=== PATIENT | female | born 1965 | race Caucasian/White ===

== ENCOUNTER 2017-02-14 16:25 | Emergency (ER) | payer MEDICARE, OTHER ==
[~2017-02-14] VITALS: Ht 160 cm; Wt 73.9 kg
[~2017-02-14 16:25] MED LIST: /DIVA50TA PO; AMBI12.52 PO; CEPACOL PO; CHOLPOW XX; DEPA500T2 PO; DOXY-197 PO; ESTR62CR PV; FLUC150T PO; HYOSPOW SL; NICO21PAT TOP; OMEP40CA2 PO; OXYC5TAB2 PO; PRED10TA2 PO; PROC2.5C PR; SERO50TA PO; TYLE650T30 PO; VAGI10TA VA; XANA0.5T PO; XANA1TAB2 PO; XOPEAER IN; ZITH250T PO; ZOLP-189 PO; ZYPR5TAB2 PO; ambien PO
[2017-02-14] MEDS ORDERED: XANA1TAB2 PO (16:36)
[2017-02-14] MEDS ORDERED: BENT10CA PO (16:36)
[2017-02-14] MEDS ORDERED: LOPE2TAB5 PO (16:36)
[2017-02-14] MEDS ORDERED: LATU1TAB PO (16:36)
[2017-02-14] MEDS ORDERED: ONDANSETRON 4 MG ORAL DISINTEGRATING TAB (S0181) PO ONE (17:00)
[2017-02-14] MEDS ORDERED: ACETAMINOPHEN 325 MG TAB PO ONE (17:00)
[2017-02-14] MEDS ORDERED: ZOFR4TAB3 PO (18:04)
[2017-02-14] MEDS ORDERED: IBUP600T26 PO (18:04)
[2017-02-14 18:12] VITALS: BP 112/76
== END 2017-02-14 18:17 | disposition home or self-care (01) ==
LOC: M ED 17:56
DX: S09.90XA Unspecified injury of head, initial encounter (principal); W01.190A Fall on same level from slipping, tripping and stumbling with subsequent striking against furniture, initial encounter; Y92.018 Other place in single-family (private) house as the place of occurrence of the external cause; Y93.89 Activity, other specified; Y99.8 Other external cause status; Z79.899 Other long term (current) drug therapy; Z88.8 Allergy status to other drugs, medicaments and biological substances; F17.210 Nicotine dependence, cigarettes, uncomplicated

== ENCOUNTER 2017-12-10 09:38 | Emergency (ER) | payer OTHER, MEDICARE ==
[2017-12-10] MEDS: PERCOCET 5MG/325MG TAB PO (10:18)
[2017-12-10] MEDS: CYCLOBENZAPRINE 5MG TABLET PO (10:20)
== END 2017-12-10 11:57 | disposition home or self-care (01) ==
LOC: M ED 09:38
DX: Z04.1 Encounter for examination and observation following transport accident (principal); S13.4XXA Sprain of ligaments of cervical spine, initial encounter; S43.402A Unspecified sprain of left shoulder joint, initial encounter; V43.52XA Car driver injured in collision with other type car in traffic accident, initial encounter; Y92.410 Unspecified street and highway as the place of occurrence of the external cause; M75.32 Calcific tendinitis of left shoulder; M50.221 Other cervical disc displacement at C4-C5 level; M25.78 Osteophyte, vertebrae; J44.9 Chronic obstructive pulmonary disease, unspecified; K21.9 Gastro-esophageal reflux disease without esophagitis; F43.10 Post-traumatic stress disorder, unspecified; F31.9 Bipolar disorder, unspecified; F41.9 Anxiety disorder, unspecified; F17.210 Nicotine dependence, cigarettes, uncomplicated; Z79.51 Long term (current) use of inhaled steroids; Z79.899 Other long term (current) drug therapy; Z91.040 Latex allergy status; Z88.8 Allergy status to other drugs, medicaments and biological substances; Z87.820 Personal history of traumatic brain injury; Z86.011 Personal history of benign neoplasm of the brain; Z98.890 Other specified postprocedural states
CPT/HCPCS: 73030

== ENCOUNTER → 2019-03-10 | Outpatient (CLI) | payer MEDICARE ==
[~2019-03-10] MED LIST changes: -/DIVA50TA PO; +ANOR1AER IN; +ARNU1INH3 IN; +BENT10CA PO; +CHOL4PW PO; +CYCL10TA PO; +DEPA1TAB3 PO; +IBUP-1022 PO; +LATU1TAB PO; +LOPE2TAB5 PO; +NAPR-885 PO; +NICO21DI3 TOP; -NICO21PAT TOP; +ZOFR4TAB14 PO
--- NOTE | 2019-03-10 15:54 | REP ---
Chest two views HISTORY: Cough Comparison: 11/12/2017 Linear density is present in the right lower lobe consistent with atelectasis or scar. The left lung is clear. The heart is normal in size. The pulmonary vasculature is normal in appearance. The bony structure is intact. IMPRESSION: Right lower lobe atelectasis or scar. Electronically Signed by William Oleary MD 03/10/2019 03:45 P
== END ==
LOC: M SMT 14:53
PROVIDERS: ATTEND Internal Medicine Pulmonary Disease
DX: R91.8 Other nonspecific abnormal finding of lung field (principal)

== ENCOUNTER → 2020-03-01 | Outpatient (CLI) | payer MEDICARE ==
[~2020-03-01] MED LIST changes: +CYCL-707 PO; -CYCL10TA PO; +OMEP40CA97 PO
[2020-03-01 09:47] LABS: ABG BASE EXCESS -2.8 (-2.0-2.0); ABG HCO3 21.3 MEQ/L (22.0-26.0); ABG O2 SATURATION 95.1 % (95.0-99.0); ABG PARTIAL PRESSURE CO2 34.7 mmHg (35.0-45.0); ABG PARTIAL PRESSURE O2 78.1 mmHg (75.0-100.0); ABG STANDARD HCO3 22.1 MEQ/L (22.0-26.0); ABG TOTAL CO2 22.3 MEQ/L (22.0-29.0); ABG pH (ARTERIAL) 7.405 UNITS (7.350-7.450)
--- NOTE | 2020-03-01 10:17 | PFTRPT ---
Site: [facility], [address] [place] [address], [id number] ID: [id number] Name: RU DIAZ CASE Visit Date: 03/01/2020 Second ID: [id number] Referring Doctor: Sinai GALVAN, Pascual Garcia Reviewing Doctor: Demetrius Pereira MD Grain Roaster: Vy VALENZUELA, RONNA Age: 54 : 1965 Sex: Female Race: Height: 63.75 Inches Weight: 185.00 Lbs BSA: 1.89 Order IDs: [id number] Requested Test(s): <RESP-PFT.DLCO> Diagnosis: J44.9 test appear to be valid, although the ATS standard for "end of test" was not met. Pt was given four puffs of albuterol for postbronchodilator. IVC is less than 85% of VC. DLCO may be underestimated. Review Status: Not Reviewed Pre-Bronch Post-Bronch Pred Actual %Pred Actual %Chng SPIROMETRY FVC (L) 3.43 2.65 77 3.02 14 FEV1 (L) 2.69 1.54 57 1.75 13 FEV1/FVC (%) 79 58 73 58 FEF 25% (L/sec) 5.10 2.00 39 3.09 54 FEF 50% (L/sec) 3.81 0.76 19 1.20 58 FEF 75% (L/sec) 1.35 0.22 15 0.53 144 FEF 25-75% (L/sec) 2.59 0.57 22 1.06 85 FEF Max (L/sec) 6.55 3.99 60 4.74 18 FIVC (L) 2.66 3.07 15 FIF 50% (L/sec) 3.73 4.64 124 5.67 22 FIF Max (L/sec) 4.71 5.75 22 MVV (L/min) 95 58 60 Expiratory Time (sec) 10.57 7.45 -29 Back Extrap Vol (L) 0.06 0.08 39 Time To FEFmax (sec) 0.077 0.085 10 LUNG VOLUMES SVC (L) 3.17 3.76 118 IC (L) 2.21 1.88 85 ERV (L) 0.96 1.88 195 TGV (L) 2.81 3.98 141 RV (Pleth) (L) 1.85 2.10 113 TLC (Pleth) (L) 5.02 5.87 116 RV/TLC (Pleth) (%) 37 36 96 DIFFUSION DLCOunc (ml/min/mmHg) 22.21 16.01 72 DLCOcor (ml/min/mmHg) 22.21 16.55 74 DL/VA (ml/min/mmHg/L) 4.42 3.27 74 VA (L) 5.02 5.05 100 BHT (sec) 9.71 IVC (L) 2.80 TLC (SB) (L) 5.20 AIRWAYS RESISTANCE Raw (cmH2O/L/s) 1.86 1.82 97 Gaw (L/s/cmH2O) 1.03 0.55 53 sRaw (cmH2O*s) 4.76 9.63 202 sGaw (1/cmH2O*s) 0.20 0.11 52 BLOOD GASES Hgb (gm/dL) 12.4
== END ==
LOC: M CARPUL 09:15
PROVIDERS: ATTEND Internal Medicine Pulmonary Disease
DX: J44.9 Chronic obstructive pulmonary disease, unspecified (principal)

== ENCOUNTER → 2020-08-14 | Outpatient (REF) | payer MEDICARE | LOC: M LAB REF 17:06 | PROVIDERS: ATTEND Internal Medicine Pulmonary Disease | DX: Z79.899 Other long term (current) drug therapy (principal) ==

== ENCOUNTER → 2020-08-29 | Outpatient (REF) | payer MEDICARE | LOC: M LAB REF 17:20 | PROVIDERS: ATTEND Internal Medicine Pulmonary Disease | DX: J45.40 Moderate persistent asthma, uncomplicated (principal) ==

== ENCOUNTER → 2020-10-02 | Outpatient (REF) | payer MEDICARE | LOC: M LAB REF 16:58 | PROVIDERS: ATTEND Internal Medicine Pulmonary Disease | DX: J45.40 Moderate persistent asthma, uncomplicated (principal) ==

== ENCOUNTER → 2020-10-25 | Outpatient (REF) | payer MEDICARE | LOC: M LAB REF 16:52 | PROVIDERS: ATTEND Internal Medicine Pulmonary Disease | DX: J45.40 Moderate persistent asthma, uncomplicated (principal) ==

== ENCOUNTER → 2020-11-21 | Outpatient (REF) | payer MEDICARE ==
[2020-11-21 13:31] LABS: APPEARANCE, URINE CLEAR (CLEAR); BACTERIA, URINE AUTO NEGATIVE (NEGATIVE); BILIRUBIN, URINE AUTO NEGATIVE (NEGATIVE); BLOOD, URINE BLOOD 1+ (NEGATIVE); COLOR, URINE YELLOW (YELLOW); GLUCOSE, URINE (UA) AUTO NEGATIVE (NEGATIVE); KETONE, URINE AUTO NEGATIVE (NEGATIVE); LEUKOCYTE ESTERASE, URINE AUTO NEGATIVE (NEGATIVE); NITRITE, URINE AUTO NEGATIVE (NEGATIVE); PROTEIN, URINE AUTO NEGATIVE (NEGATIVE); RBC, URINE AUTO 1 /HPF (0-3); SPECIFIC GRAVITY URINE AUTO 1.012 (1.002-1.035); SQUAMOUS EPITHELIAL CELL UR AU 0 /HPF (0-6); UROBILINOGEN, URINE AUTO 0.2 mg/dL (0.0-2.0); WBC, URINE AUTO 0 /HPF (0-3)
== END ==
LOC: M SMT 13:02
PROVIDERS: ATTEND Urology
DX: N32.0 Bladder-neck obstruction (principal)

== ENCOUNTER 2021-01-26 22:13 | Emergency (ER) | payer MEDICARE ==
[~2021-01-26] VITALS: Ht 162.6 cm; Wt 72.7 kg
[2021-01-26] MEDS ORDERED: CBD OIL (22:38)
[2021-01-26] MEDS ORDERED: CLOP75TA2 (22:38)
[2021-01-26] MEDS ORDERED: DOXA1TAB41 (22:38)
[2021-01-26] MEDS ORDERED: VENTAER INH (22:38)
[2021-01-26] MEDS ORDERED: AMIT75TA (22:38)
[2021-01-26] MEDS ORDERED: ACET650T61 PO (22:38)
[2021-01-26] MEDS ORDERED: VITA50005 (22:38)
[2021-01-26] MEDS ORDERED: LISI20TA33 (22:38)
[2021-01-26] MEDS ORDERED: THEO400T4 (22:38)
[2021-01-26] MEDS ORDERED: UBRO100T (22:38)
[2021-01-26] MEDS ORDERED: NITROGLYCERIN 0.4 MG SUBL TABLET SL PRN (23:00)
[2021-01-26 23:06] LABS: BASO # 0.1 10^3/uL (0.0-0.2); BASO % 1.1 % (0.0-1.0); EOS # 0.2 10^3/uL (0.0-0.5); EOS % 1.8 % (0.0-3.0); HEMATOCRIT 33.3 % (36.0-47.0); HEMOGLOBIN 10.8 g/dl (12.0-15.5); LYMPH # 3.8 10^3/uL (1.5-5.0); LYMPH % 39.9 % (24.0-44.0); MEAN CORPUSCULAR HEMOGLOBIN 33.5 pg (27.0-33.0); MEAN CORPUSCULAR HGB CONC 32.4 g/dl (32.0-36.5); MEAN CORPUSCULAR VOLUME 103.4 fl (80.0-96.0); MONO # 0.8 10^3/uL (0.0-0.8); MONO % 8.4 % (2.0-8.0); NEUTROPHILS # 4.7 10^3/uL (1.5-8.5); NEUTROPHILS % 48.5 % (36.0-66.0); PLATELET COUNT, AUTOMATED 315 10^3/uL (150-450); RED BLOOD COUNT 3.22 10^6/uL (4.00-5.40); WHITE BLOOD COUNT 9.6 10^3/uL (4.0-10.0)
[2021-01-26 23:15] LABS: INR 0.92; PROTHROMBIN TIME 12.5 SECONDS (12.5-14.3)
[2021-01-26 23:25] LABS: ALBUMIN 3.4 GM/DL (3.2-5.2); ALT/SGPT 19 U/L (12-78); BILIRUBIN,DIRECT < 0.1 MG/DL (0.0-0.2); BLOOD UREA NITROGEN 14 MG/DL (7-18); CALCIUM LEVEL 8.8 MG/DL (8.5-10.1); CARBON DIOXIDE LEVEL 24 MEQ/L (21-32); CHLORIDE LEVEL 110 MEQ/L (98-107); CK-MB VALUE MASS < 1.0 NG/ML (<3.6); CPK CREATINE PHOSPHOKINASE 54 U/L (26-192); CREATININE FOR GFR 0.72 MG/DL (0.55-1.30); GLOMERULAR FILTRATION RATE > 60.0 (>51); GLUCOSE, FASTING 88 MG/DL (70-100); LIPASE 151 U/L (73-393); MB/CK RELATIVE INDEX 1.85 (< OR =4); NT-PRO BNP 9 PG/ML (<125); POTASSIUM SERUM 3.9 MEQ/L (3.5-5.1); SODIUM LEVEL 141 MEQ/L (136-145); TOTAL PROTEIN 6.5 GM/DL (6.4-8.2); TROPONIN I < 0.02 NG/ML (< 0.10)
--- NOTE | 2021-01-26 23:33 | REPVR ---
PROCEDURE INFORMATION: Exam: XR Chest Exam date and time: 01/26/21 (11:12pm) Age: 55 years old Clinical indication: Chest pain TECHNIQUE: Imaging protocol: Portable CXR Views: 1 view COMPARISON: Chest films of 03/10/19 FINDINGS: Lungs: Unremarkable. No consolidation. Pleural spaces: Unremarkable. No pleural effusions. No pneumothorax. Heart/Mediastinum: Unremarkable. No cardiomegaly. Bones/joints: Unremarkable. IMPRESSION: No acute findings. Electronically signed by: Summer Benavidez On 01/26/2021 23:33:39 PM
[2021-01-26] MEDS: ASPIRIN 81 MG CHEW TABLET PO ONE ×2 (23:37→23:41)
[2021-01-26 23:51] LABS: BILIRUBIN,TOTAL < 0.1 MG/DL (0.2-1.0)
[2021-01-27] MEDS ORDERED: METAL LOCK LOOP XX ONE (04:41)
[2021-01-27 04:50] LABS: CK-MB VALUE MASS < 1.0 NG/ML (<3.6); CPK CREATINE PHOSPHOKINASE 49 U/L (26-192); MB/CK RELATIVE INDEX 2.04 (< OR =4); TROPONIN I < 0.02 NG/ML (< 0.10)
--- NOTE | 2021-01-27 05:52 | ECGEPIP ---
[facility] - ED Test Date: 2021-01-26 Pat Name: RU DIAZ Department: Room: - Gender: Female Court Supervisor: ENMA : 1965 Requested By: YONIS Martinez Order Number: [id number] Reading MD: Babatunde Thompson Measurements Intervals [place] Rate: 105 P: 58 ND: 160 QRS: 64 QRSD: 82 T: 57 QT: 336 QTc: 444 Interpretive Statements Sinus tachycardia LOW VOLTAGE THROUGHOUT NO PRIORS FOR COMPARISON Electronically Signed on 01-27-2021 5:52:15 EST by Babatunde Thompson
[2021-01-27 06:00] VITALS: BP 133/88
--- NOTE | 2021-01-27 12:56 | ECGEPIP ---
[facility] - ED Test Date: 2021-01-27 Pat Name: RU DIAZ Department: Room: - Gender: Female Medium Cycle Salesperson: ELIZABETH KOENIGB: 1965 Requested By: RICHARD LE Order Number: [id number] Reading MD: Babatunde Thompson Measurements Intervals [place] Rate: 97 P: 39 WA: 146 QRS: 53 QRSD: 82 T: 49 QT: 344 QTc: 436 Interpretive Statements Normal sinus rhythm SIMILAR TO 01/26/21 Electronically Signed on 01-27-2021 12:56:40 EST by Babatunde Thompson
== END 2021-01-27 06:12 | disposition home or self-care (01) ==
LOC: M ED 22:13
DX: R07.9 Chest pain, unspecified (principal); I10 Essential (primary) hypertension; J44.9 Chronic obstructive pulmonary disease, unspecified; H35.30 Unspecified macular degeneration; K21.9 Gastro-esophageal reflux disease without esophagitis; F32.9 Major depressive disorder, single episode, unspecified; Z88.8 Allergy status to other drugs, medicaments and biological substances; Z91.040 Latex allergy status; Z79.899 Other long term (current) drug therapy; Z79.51 Long term (current) use of inhaled steroids; Z79.02 Long term (current) use of antithrombotics/antiplatelets

== ENCOUNTER → 2021-02-02 | Outpatient (CLI) | payer MEDICARE ==
[~2021-02-02] MED LIST changes: +ACET650T61 PO; +AMIT75TA; +CBD OIL; +CLOP75TA2; +DOXA1TAB41; +LISI20TA33; +THEO400T4; +UBRO100T; +VENTAER INH; +VITA50005
== END ==
LOC: M PLALAB 13:02
PROVIDERS: ATTEND Surgery
DX: Z13.79 Encounter for other screening for genetic and chromosomal anomalies (principal)

== ENCOUNTER → 2021-02-14 | Outpatient (CLI) | payer MEDICARE ==
[2021-02-14 09:02] VITALS: BP 122/82
--- NOTE | 2021-02-14 11:12 | REP ---
INDICATION: US GUIDED ASPIR/R92.8 ABN LEFT MAMMO. COMPARISON: Ultrasound 12/28/2020 at [facility] imaging. TECHNIQUE: Real-time sonographic evaluation of left breast performed, ultrasound guidance provided for Dr. Morton. FINDINGS: Ultrasound-guided biopsy performed by Dr. Morton. Ultrasound images in the region of 7 o'clock left breast appear to demonstrate the previously identified hypoechoic nodule identified at that location. IMPRESSION: Ultrasound guidance provided for Dr. Morton for ultrasound-guided biopsy of a left breast nodule at the 7 o'clock position. RECOMMENDATION: Clinical follow-up. <Electronically signed by Esequiel Hopson > 02/14/21 1101
--- NOTE | 2021-02-14 17:25 | REP ---
INDICATION: R92.8 ABN LEFT BREAST MAMMO/US GUIDED BX/CK CLIP PLACEMENT. COMPARISON: 12/28/2020, 12/07/2020. TECHNIQUE: ML and CC views left breast performed following ultrasound-guided biopsy of a nodule at 7 o'clock left breast. FINDINGS: Biopsy clip is seen at the site of the nodule 7 o'clock left breast. IMPRESSION: Following ultrasound-guided biopsy, biopsy clip is in appropriate position at the site of the nodule previously identified 7 o'clock left breast. RECOMMENDATION: Clinical follow-up. <Electronically signed by Esequiel Hopson > 02/14/21 [id number]
--- NOTE | 2021-02-15 18:55 | ROOPDOC ---
[facility] Report Of Operation Report of Operation DATE OF PROCEDURE: 02/14/21 DIAGNOSIS: left breast suspicious lesion PROCEDURE: ultrasound guided attempted aspiration of left breast suspicious lesion, followed by ultrasound guided left breast biopsy with clip placement SURGEON: Carlotta Franklin BLOOD LOSS: minimal COMPLICATIONS: none Lidocaine 1% LOT [id number] Expiration 10/2021 Sodium Bicarbonate 8.4% LOT [id number] Expiration 12/2021 Hydromark clip LOT [id number] Expiration 09/2023 SHAPE : 3 Bx device: BARD [id number] x10 cm LOT [id number] Expiration 11/2021 Informed consent was obtained. The most common risk and possible complications including bleeding, hematoma, bruising, infection, injury to surrounding structures were explained to the patient and the patient expressed understanding. Patient was placed on the bed in the supine position. Appropriate time out was done stating patients name, date of , and the procedure to be performed. The left breast was prepped and draped in the usual fashion. The ultrasound was used to confirm the location of the lesion in the left breast at 7:00 1 centimeter from the nipple. Plain Lidocaine 1% and 8.4% sodium bicarbonate 10:1 mix was used to anesthetize the skin, the biopsy site and tissues along the anticipated biopsy tract. 18 G needle was used to attempt aspiration of the lesion under ultrasound guidance. No fluid was returned. At this point the decision was made to proceed with planned biopsy. Small skin incision was made with blade number 11. BARD Marquee 14G cannula with introducer ([id number]) was inserted through the incision and advanced under the ultrasound guidance to position immediately adjacent to the lesion. Next, the introducer was removed and BARD Marquee 14G biopsy device was places in the cannula. Pre-biopsy imaging, and post-biopsy imaging were captured. Five good core biopsies were taken at various levels of the lesion. Specimen was placed in formaldehyde, labeled with appropriate biopsy site and patients name, and sent to pathology for evaluation. Next, the biopsy device was withdrawn and a clip introducer was inserted into the biopsy site via the cannula. SHAPE 3 Hydromark clip was deployed under sonographic guidance. Post-clip placement image was captured. Manual pressure over the biopsy cavity and tract was held after the clip introducer was withdrawn. No bleeding was noted upon removal of the pressure. Post-biopsy mammogram of the left breast was obtained and showed clip in expected position. Postprocedural dressing was placed. Patient tolerated procedure well. Discharge instructions were discussed with the patient and the patient expressed understanding. CARLOTTA FRANKLIN DO Feb 15, 2021 18:54
== END ==
LOC: M WHCPRO 06:41
PROVIDERS: ATTEND Surgery
DX: N60.22 Fibroadenosis of left breast (principal); D24.2 Benign neoplasm of left breast; R92.8 Other abnormal and inconclusive findings on diagnostic imaging of breast

== ENCOUNTER → 2021-02-20 | Outpatient (REF) | payer MEDICARE | LOC: M LAB REF 16:55 | PROVIDERS: ATTEND Internal Medicine Pulmonary Disease | DX: J45.40 Moderate persistent asthma, uncomplicated (principal) ==

== ENCOUNTER → 2021-03-02 | Outpatient (CLI) | payer MEDICARE ==
--- NOTE | 2021-03-02 12:43 | REP ---
INDICATION: LUNG SCREENING. COMPARISON: Standard noncontrast enhanced CT of the chest of 12/19/2017 TECHNIQUE: Axial noncontrast images from the thoracic inlet to the upper abdomen using low-dose lung screening technique (LDCT). As per the protocol only lung window images were sent to the read station for interpretation. FINDINGS: There are no new abnormal nodules, masses, or opacities. There are no pleural or pericardial effusions. Grossly the mediastinum and pulmonary girish are within normal limits. Grossly the imaged upper abdomen and imaged osseous structures are within normal limits. IMPRESSION: Lung rads category [address] of the chest. No significant change from the prior exam other than technique. <Electronically signed by Ant Solis > 03/02/21 3249
== END ==
LOC: M RAD 11:16
PROVIDERS: ATTEND Internal Medicine Pulmonary Disease
DX: F17.218 Nicotine dependence, cigarettes, with other nicotine-induced disorders (principal)

== ENCOUNTER → 2021-03-13 | Outpatient (CLI) | payer MEDICARE ==
[~2021-03-13] MED LIST changes: +ALPR1TAB3 PO; -AMIT75TA; +AMIT75TA PO; -CBD OIL; +CBD OIL PO; -CLOP75TA2; +CLOP75TA2 PO; +DIVA500T9 PO; +ECOT81TA5 PO; +FAMO40TA3 PO; +LATU80TA PO; -LISI20TA33; +LISI20TA33 PO; +PANT40TA29 PO; +PLAV1TAB2 PO; +ROXI1TAB2 PO; +SUCR1SS PO; -THEO400T4; +THEO400T4 PO; -UBRO100T; +UBRO100T PO; -VITA50005; +VITA50005 PO; +ZOLP6.2517 PO
[2021-03-13 12:36] LABS: HEMATOCRIT 36.6 % (36.0-47.0); HEMOGLOBIN 12.1 g/dl (12.0-15.5); MEAN CORPUSCULAR HEMOGLOBIN 33.3 pg (27.0-33.0); MEAN CORPUSCULAR HGB CONC 33.1 g/dl (32.0-36.5); MEAN CORPUSCULAR VOLUME 100.8 fl (80.0-96.0); PLATELET COUNT, AUTOMATED 361 10^3/uL (150-450); RED BLOOD COUNT 3.63 10^6/uL (4.00-5.40); WHITE BLOOD COUNT 11.4 10^3/uL (4.0-10.0)
[2021-03-13 13:08] LABS: ALBUMIN 3.8 GM/DL (3.2-5.2); ALT/SGPT 18 U/L (12-78); BILIRUBIN,TOTAL 0.2 MG/DL (0.2-1.0); BLOOD UREA NITROGEN 8 MG/DL (7-18); CARBON DIOXIDE LEVEL 25 MEQ/L (21-32); CHLORIDE LEVEL 107 MEQ/L (98-107); CREATININE FOR GFR 0.58 MG/DL (0.55-1.30); GLOMERULAR FILTRATION RATE > 60.0 (>51); GLUCOSE, FASTING 80 MG/DL (70-100); POTASSIUM SERUM 4.2 MEQ/L (3.5-5.1); SODIUM LEVEL 138 MEQ/L (136-145)
--- NOTE | 2021-03-13 13:41 | REP ---
INDICATION: Encounter FOR OTHER PREPROCEDURAL EXAM / LABS 1ST COMPARISON: 01/26/2021 as well as other prior exams. TECHNIQUE: PA/Lateral FINDINGS: Lungs: Clear, no infiltrate. Heart: Normal in size. Mediastinum: Mediastinal silhouette unremarkable. Pleural angles: Unremarkable.. Bones and soft tissues: There are degenerative changes of the spine without compression deformity. IMPRESSION: No acute pulmonary disease. <Electronically signed by Esequiel Hopson > 03/13/21 0009
== END ==
LOC: M LAB 11:56
PROVIDERS: ATTEND Family Medicine
DX: Z01.818 Encounter for other preprocedural examination (principal); Z79.899 Other long term (current) drug therapy; F31.89 Other bipolar disorder; F43.10 Post-traumatic stress disorder, unspecified

== ENCOUNTER 2021-03-20 07:33 | Day surgery (SDC) | payer MEDICARE ==
[~2021-03-20] VITALS: Ht 162.6 cm; Wt 72.0 kg
[~2021-03-20 07:33] MED LIST changes: +LIDOCAINE 1% MDV 20ML VIAL SQ PRN; +LR 1,000 ML IV ONE; -ROXI1TAB2 PO; +ceFAZolin SOD 2 GM in IV 1 EA IV ONE
[2021-03-20] MEDS ORDERED: HEPARIN SOD (PORCINE) 5000UNITS/ML 1ML VIAL/SYRINGE SQ ONE (08:25)
[2021-03-20] MEDS ORDERED: LIDOCAINE 2% 100MG/5ML SDV (FOR ANES.) As Ordered ONE (08:27)
[2021-03-20] MEDS ORDERED: ONDANSETRON 4MG/2ML VIAL As Ordered ONE ×2 (08:27→11:16)
[2021-03-20] MEDS ORDERED: MIDAZOLAM INJ 2MG/2ML VIAL (J2250 PER 1MG) As Ordered ONE (08:27)
[2021-03-20] MEDS ORDERED: fentaNYL 100 MCG/2 ML INJECTION (J3010) As Ordered ONE (08:27)
[2021-03-20] MEDS ORDERED: ACETAMINOPHEN 1000MG 100ML IV BTL (OFIRMEV) (J0131 PER 10MG) As Ordered ONE (08:27)
[2021-03-20] MEDS ORDERED: propofoL 200 MG/20 ML VIAL As Ordered ONE ×2 (08:27→12:53)
[2021-03-20] MEDS ORDERED: dexameTHASONE 4 MG/ML 1ML VIAL (J1100 PER 1MG) As Ordered ONE (08:27)
[2021-03-20] MEDS ORDERED: BUPIVACAINE HCL 0.25% 30ML VIAL As Ordered ONE (09:14)
[2021-03-20] MEDS ORDERED: LIDOCAINE 1% SDV 30ML VIAL As Ordered ONE (09:14)
[2021-03-20] MEDS ORDERED: SCOPOLAMINE 1MG TRANSDERMAL PATCH TOP ONE (09:15)
[2021-03-20] MEDS ORDERED: PHENYLephrine 500MCG 5ML (100MCG/ML) SYRINGE As Ordered ONE ×2 (10:24→11:13)
[2021-03-20] MEDS ORDERED: ePHEDrine SULFATE 25 MG/5 ML(5MG/ML) SYRINGE As Ordered ONE (10:55)
[2021-03-20] MEDS ORDERED: METOCLOPRAMIDE INJ 10MG/2ML VIAL (J2765 PER 1) As Ordered ONE (11:37)
[2021-03-20] MEDS ORDERED: METOCLOPRAMIDE INJ 10MG/2ML VIAL (J2765 PER 1) IV PRN (11:45)
[2021-03-20] MEDS ORDERED: HYDROMORPHONE HCL 0.5 MG/ 0.5 ML SYRINGE (J1170 PER 1) IV PRN (11:45)
[2021-03-20] MEDS ORDERED: oxyCODONE 5MG TAB PO PRN (11:45)
[2021-03-20] MEDS ORDERED: fentaNYL 100 MCG/2 ML INJECTION (J3010) IV PRN (11:45)
[2021-03-20] MEDS ORDERED: LR 1,000 ML IV SCH (11:45)
[2021-03-20] MEDS ORDERED: ONDANSETRON 4MG/2ML VIAL IV PRN (11:45)
[2021-03-20] MEDS ORDERED: ROXI1TAB2 PO (11:48)
[2021-03-20 13:25] VITALS: BP 123/80
--- NOTE | 2021-03-20 20:15 | ROOPDOC ---
[facility] Report Of Operation Report of Operation DATE OF PROCEDURE: 03/20/21 PREPROCEDURE DIAGNOSES: left breast intraductal papilloma POSTPROCEDURE DIAGNOSES: left breast intraductal papilloma PROCEDURE: Left breast excisional biopsy with intraop wire placement SURGEON: Carlotta Franklin ANESTHESIA: general ESTIMATED BLOOD LOSS: Approximately 5 mL. COMPLICATIONS: none REMARKS: the clip is seen in the specimen DESCRIPTION OF PROCEDURE: INDICATIONS: Ms. Jodi Henson is a 55-year-old woman who was found to have a suspicious nodule on screening left breast mammogram. This was evaluated with US and sonographic correlate was found. US guided biopsy of the left breast lesion came back as intraductal papilloma. Excisional biopsy of the left breast was offered to the patient. She was medically cleared for surgery by her primary care doctor and her electric train driver. Risks and possible complications of surgical procedure including bleeding, infection and injury to surrounding structures were explained to the patient and she wished to proceed. Consent was signed. My initials were placed on the operative site. Subcutaneous injection of 5000 units of heparin was done in Preop. DETAILS: Patient was taken to the operating room and placed on the operating room table. A sign in was called stating patients name, date of and the procedure to be done. Preoperative antibiotics were infused. Smooth induction of general anesthesia was done. Patients hands were extended on arm rests. Care was taken not to over extend the arms. Pillow was placed under the knees and a foam was placed under the heels. Sequential compression devices were placed and assured to function correctly. Procedure was started with left breast intraop wire localization. Appropriate time out was done and patients name, date of , and the procedure to be done were confirmed. Left breast was cleaned by me. Intraoperative ultrasound was used to confirm location of the Hydromark clip and the lesion at 7:00 in periareolar area. Location of the clip was marked on the skin as well. 21 G Kopans Breast Lesion Localization Needle was used to place 25 cm wire. The wire was placed next to the clip and the lesion. The end of the wire was passed slightly distal to the clip. The images were captured confirming adequate placement of the localizing wire. Die Designer assisted with the wire placement. Next, patients left breast and axilla were prepped and draped in the usual fashion. Care was taken not to displace the wire. Appropriate time out was done again prior second part of the procedure. Patients name, date of , and the procedure to be done were confirmed. Next, local anesthetic using 1% lidocaine and 0.25 % Marcaine 50/50 mix was injected at the site of planned periareolar incision. The incision was made with the scalpel. Subcutaneous skin flaps were raised and the guide wire was carefully pulled into the wound. Dissection was carries along the wire until the previously marked on the skin area of target lesion location was encountered. At this point, wider excision of the tissue surrounding the wire was done. The Hydromark clip was identified in the tissue with intraoperative hockey stick ultrasound probe. The end of the wire was identified with palpation. During dissection a Hydromark gel was noted at the edge of the specimen. This site was marked with double black stitch. The excisional biopsy specimen was carefully removed from the breast keeping its proper orientation and moved to the back table where margins were marked with the surgical inking kit following the standard colors recommendations. The specimen measured 3x3 cm. Specimen was then placed on the grid and placed in [employer] Specimen Imaging System. The image revealed the wire and the Hydromark in the specimen. The specimen was labeled with patients name and left excisional biopsy and sent to pathology. Next, the wound was irrigated thoroughly and adequate hemostasis was assured. Additional local anesthetic was injected into surrounding tissues. space was approximated with 2-0 Vicryl. The dermis was closed with 3-0 Vicryl and skin was closed with 4-0 Monocryl. Surgical glue was placed over the incision. Patient emerged from the anesthesia without any problems. Fluffs were placed over the operative site and patients chest was wrapped snuggly in the BAKARI wrap. Sponge and instrument counts were done and were correct. Patient tolerated procedure well and was taken to recovery unit in stable condition. CARLOTTA FRANKLIN DO March 20, 2021 18:33
--- NOTE | 2021-03-21 07:08 | REP ---
INDICATION: LEFT INTRADUCTAL PAPINOMA. COMPARISON: None TECHNIQUE: Specimen radiograph FINDINGS: The specimen radiograph shows the localizing needle adjacent to a previously placed biopsy clip. IMPRESSION: As above. <Electronically signed by Ant Solis > 03/21/21 0706
--- NOTE | 2021-03-22 07:59 | REP ---
INDICATION: LEFT INTRADUCTAL PAPINOMA. COMPARISON: Comparison sonography February 14, 2021.. TECHNIQUE: Sonographic guidance. FINDINGS: Sonographic guidance is bright it provided to Dr. Morton in the OR who performed ultrasound-guided needle localization procedure left breast 7 o'clock. IMPRESSION: Sonographic guidance. Procedural imaging. <Electronically signed by Iban Augustin > 03/22/21 [id number]
== END 2021-03-20 13:37 | disposition home or self-care (01) ==
LOC: M SDC 07:33
PROVIDERS: ATTEND Surgery
DX: N60.22 Fibroadenosis of left breast (principal); Z80.3 Family history of malignant neoplasm of breast; Z91.89 Other specified personal risk factors, not elsewhere classified; F31.9 Bipolar disorder, unspecified; F43.10 Post-traumatic stress disorder, unspecified; I10 Essential (primary) hypertension; K21.9 Gastro-esophageal reflux disease without esophagitis; J44.9 Chronic obstructive pulmonary disease, unspecified; K58.9 Irritable bowel syndrome, unspecified; M17.11 Unilateral primary osteoarthritis, right knee; J45.909 Unspecified asthma, uncomplicated; Z79.899 Other long term (current) drug therapy; Z79.52 Long term (current) use of systemic steroids; Z79.02 Long term (current) use of antithrombotics/antiplatelets; Z79.82 Long term (current) use of aspirin; F17.210 Nicotine dependence, cigarettes, uncomplicated; Z91.040 Latex allergy status; Z88.8 Allergy status to other drugs, medicaments and biological substances; Z91.018 Allergy to other foods
CPT/HCPCS: 19120; 36415; 76942; 86850; 86900; 86901; 88307; J0131; J0690; J1100; J1644; J2250; J2370; J2405; J2765; J3010

== ENCOUNTER → 2021-03-21 | Outpatient (REF) | payer MEDICARE ==
[~2021-03-21] MED LIST changes: -LIDOCAINE 1% MDV 20ML VIAL SQ PRN; -LR 1,000 ML IV ONE; +ROXI1TAB2 PO; -ceFAZolin SOD 2 GM in IV 1 EA IV ONE
== END ==
LOC: M PLALAB 15:56
PROVIDERS: ATTEND Obstetrics & Gynecology
DX: D07.1 Carcinoma in situ of vulva (principal)

== ENCOUNTER → 2021-05-18 | Outpatient (CLI) | payer MEDICARE ==
[~2021-05-18] MED LIST changes: +ERGO500029 PO; +OMEP40CA4 PO; -OMEP40CA97 PO; +PROHANCE 279.3MG/ML 15ML VIAL As Ordered ONE; -VITA50005 PO
--- NOTE | 2021-05-18 15:14 | REP ---
INDICATION: HIGH RISK BREAST CA. COMPARISON: Comparison is made with mammography February 14, 2021 and sonography February 14, 2021. patient went underwent excisional biopsy left breast on March 20, 2021 for intraductal papilloma. TECHNIQUE: Three Janay MRI imaging was performed with a dedicated breast coil. Axial, coronal, and sagittal T1 and T2 weighted scans were obtained with and without fat saturation in the usual fashion. The study includes dynamically acquired post gadolinium-enhanced imaging with image subtraction. Maximum intensity projection and multi planar reformation imaging is included as well. This study is interpreted with the aid of CelluFuelD, an FDA approved computer aided detection (CAD) software program, on a dedicated breast MRI workstation. The gadolinium enhancement dose is 13 mL of intravenous ProHance. FINDINGS: There is a moderate amount of fibroglandular tissue bilaterally corresponding with the mammographic pattern. There is minimal background parenchymal enhancement. There is no evidence of axillary lymphadenopathy or significant breast cystic change. High-resolution pre and post-contrast T1 and T2 weighted scans show no suspicious morphologic abnormality in either breast. Dynamically acquired sequential postcontrast images show no suspicious area of enhancement and washout kinetics in either breast to suggest malignancy. Subtraction images show no additional abnormality. There are postoperative changes in the anterior aspect of the left breast post excisional biopsy. IMPRESSION: BI-RADS category 2 benign bilateral breast MRI findings. <Electronically signed by Iban Augustin > 05/18/21 1479
== END ==
LOC: M RAD 12:47
PROVIDERS: ATTEND Surgery
DX: Z91.89 Other specified personal risk factors, not elsewhere classified (principal); N64.59 Other signs and symptoms in breast
CPT/HCPCS: A9576; C8908

== ENCOUNTER → 2021-06-22 | Outpatient (CLI) | payer MEDICARE ==
[~2021-06-22] MED LIST changes: +LOPE1CAP5 PO; -PROHANCE 279.3MG/ML 15ML VIAL As Ordered ONE
== END ==
LOC: M LABSMTC 10:01
PROVIDERS: ATTEND Obstetrics & Gynecology
DX: Z01.812 Encounter for preprocedural laboratory examination (principal); Z11.52 Encounter for screening for COVID-19

== ENCOUNTER 2021-06-27 06:19 | Day surgery (SDC) | payer MEDICARE ==
[~2021-06-27] VITALS: Ht 162.6 cm; Wt 76.1 kg
[~2021-06-27 06:19] MED LIST changes: +LIDOCAINE 1% MDV 20ML VIAL SQ PRN; +LR 1,000 ML IV ONE
[2021-06-27 06:51] LABS: HEMATOCRIT 33.4 % (36.0-47.0); HEMOGLOBIN 11.3 g/dl (12.0-15.5)
[2021-06-27] MEDS ORDERED: MIDAZOLAM INJ 2MG/2ML VIAL (J2250 PER 1MG) As Ordered ONE (06:56)
[2021-06-27] MEDS ORDERED: fentaNYL 100 MCG/2 ML INJECTION (J3010) As Ordered ONE (06:57)
[2021-06-27] MEDS ORDERED: propofoL 200 MG/20 ML VIAL As Ordered ONE (06:59)
[2021-06-27] MEDS ORDERED: dexameTHASONE 4 MG/ML 1ML VIAL (J1100 PER 1MG) As Ordered ONE (07:01)
[2021-06-27] MEDS ORDERED: LIDOCAINE 2% 100MG/5ML SDV (FOR ANES.) As Ordered ONE (07:02)
[2021-06-27] MEDS ORDERED: LIDOCAINE W/EPINEPHRINE 1% 20ML VIAL As Ordered ONE (07:11)
[2021-06-27] MEDS ORDERED: SCOPOLAMINE 1MG TRANSDERMAL PATCH TOP ONE (07:20)
[2021-06-27] MEDS ORDERED: PHENYLephrine 500MCG 5ML (100MCG/ML) SYRINGE As Ordered ONE ×2 (07:42→08:07)
[2021-06-27] MEDS ORDERED: METOCLOPRAMIDE INJ 10MG/2ML VIAL (J2765 PER 1) As Ordered ONE (07:44)
[2021-06-27] MEDS ORDERED: ACETAMINOPHEN 1000MG 100ML IV BTL (OFIRMEV) (J0131 PER 10MG) As Ordered ONE (07:45)
[2021-06-27] MEDS ORDERED: ONDANSETRON 4MG/2ML VIAL As Ordered ONE (07:47)
[2021-06-27] MEDS ORDERED: KETOROLAC 60MG 2ML VIAL As Ordered ONE (07:47)
[2021-06-27] MEDS ORDERED: ePHEDrine SULFATE 25 MG/5 ML(5MG/ML) SYRINGE As Ordered ONE (08:03)
[2021-06-27] MEDS ORDERED: IBUP80TA PO (08:40)
[2021-06-27] MEDS ORDERED: LR 1,000 ML IV SCH (08:55)
[2021-06-27] MEDS ORDERED: fentaNYL 100 MCG/2 ML INJECTION (J3010) IV PRN (08:55)
[2021-06-27] MEDS ORDERED: ONDANSETRON 4MG/2ML VIAL IV PRN (08:55)
[2021-06-27] MEDS ORDERED: oxyCODONE 5MG TAB PO PRN (08:55)
--- NOTE | 2021-06-27 09:23 | RO ---
OPERATIVE NOTE DATE OF OPERATION: 06/27/2021 PREOPERATIVE DIAGNOSIS: Vulvar intraepithelial neoplasia (DOUGLAS) III, left vulvar lesion. POSTOPERATIVE DIAGNOSIS: Vulvar intraepithelial neoplasia (DOUGLAS) III, left vulvar lesion. OPERATION PERFORMED: Left vulvar excision. SURGEON: Shiela Avelar MD SCREW MACHINE TENDER: William Villanueva MD CLINICAL SERVICE: Gynecology. ANESTHESIA: INDICATION FOR OPERATION: Jodi is a 56-year-old postmenopausal female who presented with a left vulvar lesion that was noted on exam incidentally, and she had a vulvar biopsy done in the office which was consistent with vulvar intraepithelial neoplasia (DOUGLAS) III. She was counseled on the need for excision. MATERIAL FORWARDED TO THE LABORABORY FOR EXAMINATION: Left vulvar excision. DESCRIPTION OF FINDINGS: On the left vulva, there was an approximately 3 x 4 cm plaque-like lesion that was white to serrano, somewhat scaly, non-erythematous. INFECTION CLASSIFICATION: 2. ESTIMATED BLOOD LOSS: 5 mL. IV FLUIDS: 600 mL of lactated Ringer's. URINE OUTPUT: Not measured. DESCRIPTION OF PROCEDURE: After obtaining informed consent, the patient was taken to the operating room where she underwent general anesthesia with LMA. She was placed in low lithotomy position, and perineum and vagina were prepped and draped in a sterile fashion. At that point, the left vulvar lesion was noted and 1% lidocaine with epinephrine was injected under the lesion for good local anesthesia. At that point, a scalpel was used after using a marking pen to outline the lesion. Scalpel was used to excise the lesion in an ellipse shape, and the lesion was undermined with the scalpel to just remove the skin. At that point, specimen was handed off to be sent to pathology. Bovie cautery was used on a few small areas of pinpoint bleeding to obtain complete hemostasis. 3-0 Vicryl was then used in interrupted fashion to bring the subcutaneous layer together and then a running subcuticular stitch was used for the skin layer with 3-0 Vicryl for complete reapproximation and hemostasis. At that point, the procedure was terminated. The patient was awakened from general anesthesia in good condition and transferred to the recovery room. All counts were correct times two.
[2021-06-27 09:55] VITALS: BP 120/76
== END 2021-06-27 10:00 | disposition home or self-care (01) ==
LOC: M SDC 06:19
PROVIDERS: ATTEND Obstetrics & Gynecology
DX: N90.3 Dysplasia of vulva, unspecified (principal); J44.9 Chronic obstructive pulmonary disease, unspecified; I10 Essential (primary) hypertension; K21.9 Gastro-esophageal reflux disease without esophagitis; F43.10 Post-traumatic stress disorder, unspecified; Z79.02 Long term (current) use of antithrombotics/antiplatelets; Z79.899 Other long term (current) drug therapy; F41.9 Anxiety disorder, unspecified; F32.9 Major depressive disorder, single episode, unspecified
CPT/HCPCS: 36415; 56620; 85014; 85018; 86850; 86900; 86901; 88305; J0131; J1100; J1885; J2250; J2370; J2405; J2765; J3010

== ENCOUNTER 2021-07-24 09:35 | Emergency (ER) | payer MEDICARE ==
[~2021-07-24] VITALS: Ht 162.6 cm; Wt 76.9 kg
[~2021-07-24 09:35] MED LIST changes: +IBUP80TA PO; -LIDOCAINE 1% MDV 20ML VIAL SQ PRN; -LR 1,000 ML IV ONE
[2021-07-24] MEDS ORDERED: NS 1,000 ML IV ONE (10:50)
[2021-07-24] MEDS ORDERED: ONDANSETRON 4MG/2ML VIAL As Ordered ONE (10:52)
[2021-07-24] MEDS ORDERED: ONDANSETRON 4MG/2ML VIAL IV ONE (10:55)
[2021-07-24] MEDS ORDERED: diphenhydrAMINE 50MG/ML VIAL (J1200) IV STA (10:56)
[2021-07-24] MEDS ORDERED: diphenhydrAMINE 50MG/ML VIAL (J1200) As Ordered ONE (10:57)
[2021-07-24] MEDS ORDERED: ISOVUE-370 76% 100ML VIAL As Ordered ONE (11:14)
[2021-07-24 11:21] LABS: BASO # 0.1 10^3/uL (0.0-0.2); BASO % 0.7 % (0.0-1.0); EOS # 0.1 10^3/uL (0.0-0.5); EOS % 1.2 % (0.0-3.0); HEMATOCRIT 32.4 % (36.0-47.0); HEMOGLOBIN 11.2 g/dl (12.0-15.5); LYMPH # 2.3 10^3/uL (1.5-5.0); LYMPH % 19.2 % (24.0-44.0); MEAN CORPUSCULAR HEMOGLOBIN 34.3 pg (27.0-33.0); MEAN CORPUSCULAR HGB CONC 34.6 g/dl (32.0-36.5); MEAN CORPUSCULAR VOLUME 99.1 fl (80.0-96.0); MONO # 0.9 10^3/uL (0.0-0.8); MONO % 7.7 % (2.0-8.0); NEUTROPHILS # 8.5 10^3/uL (1.5-8.5); NEUTROPHILS % 70.8 % (36.0-66.0); PLATELET COUNT, AUTOMATED 399 10^3/uL (150-450); RED BLOOD COUNT 3.27 10^6/uL (4.00-5.40); WHITE BLOOD COUNT 12.1 10^3/uL (4.0-10.0)
--- NOTE | 2021-07-24 11:52 | REP ---
INDICATION: abdominal pain lower left COMPARISON: Comparison CT study May 28, 2013. TECHNIQUE: Helical scanning is acquired and 3 mm axial images were reformatted. Coronal and sagittal MPR images were generated and reviewed. FINDINGS: Preliminary digital apparel cutter radiograph shows mild gaseous distention of the transverse colon. There clips in the right upper quadrant. The lung bases are clear on axial images. The liver is normal in size. No mass lesion is seen. There are 3 low-density areas in the liver consistent with cysts which are unchanged from the 2013 study. The spleen is unremarkable. Normal adrenal glands are observed. Gallbladder surgically absent with clips in the gallbladder fossa. The kidneys are morphologically intact. No intrarenal calculus or hydronephrosis is seen on either side. No retroperitoneal mass or adenopathy is seen. Vascular calcification is observed. There is air and fluid in the ascending colon which is mildly dilated. There is mild mural thickening in the transverse colon. Semi solid stool is seen in the distal colon. Fluid-filled normal caliber small bowel loops are noted. No obstructive lesion is seen. A normal appendix is seen in the right pelvis. The uterus is surgically absent. No abdominal wall defect is seen. IMPRESSION: Mural thickening and mild dilation with air and fluid content in the transverse colon; question enterocolitis. No obstructive lesion. Normal appendix. Otherwise unremarkable CT study abdomen pelvis. <Electronically signed by Iban Augustin > 07/24/21 [id number]
[2021-07-24 11:59] LABS: ALBUMIN 3.4 GM/DL (3.2-5.2); BILIRUBIN,DIRECT 0.1 MG/DL (0.0-0.2); BILIRUBIN,TOTAL 0.3 MG/DL (0.2-1.0); C REACTIVE PROTEIN QUANTITATIV 3.48 MG/DL (0.00-0.30); TOTAL PROTEIN 6.9 GM/DL (6.4-8.2)
[2021-07-24 12:50] VITALS: BP 114/77
[2021-07-24] MEDS ORDERED: ZOFR4TAB16 PO (15:24)
== END 2021-07-24 15:56 | disposition home or self-care (01) ==
LOC: M ED 09:35
DX: K52.9 Noninfective gastroenteritis and colitis, unspecified (principal); R51.9 Headache, unspecified; M79.10 Myalgia, unspecified site; R68.83 Chills (without fever); I10 Essential (primary) hypertension; I25.10 Atherosclerotic heart disease of native coronary artery without angina pectoris; E78.5 Hyperlipidemia, unspecified; K21.9 Gastro-esophageal reflux disease without esophagitis; J45.909 Unspecified asthma, uncomplicated; J44.9 Chronic obstructive pulmonary disease, unspecified; F17.200 Nicotine dependence, unspecified, uncomplicated; Z91.040 Latex allergy status; Z88.8 Allergy status to other drugs, medicaments and biological substances; Z88.3 Allergy status to other anti-infective agents; Z91.018 Allergy to other foods; Z79.899 Other long term (current) drug therapy; Z79.51 Long term (current) use of inhaled steroids
CPT/HCPCS: 36415; 74176; 80047; 80076; 81001; 83690; 85025; 86140; 96374; 96375; 99284; J1200; J2405

== ENCOUNTER 2021-08-09 12:58 | Inpatient (IN) | payer MEDICARE ==
[2021-08-09] VITALS (8 sets, daily range): BP systolic 99–112; BP diastolic 64–70
[~2021-08-09] VITALS: Ht 162.6 cm; Wt 77.1 kg
[~2021-08-09 12:58] MED LIST changes: -ANOR1AER IN; +ANOR1AER INH; -ARNU1INH3 IN; +ARNU1INH3 INH; +ZOFR4TAB16 PO
[2021-08-09] MEDS ORDERED: NS 1,000 ML IV ONE (13:05)
[2021-08-09] MEDS ORDERED: NALOXONE 2MG/2ML SYRINGE (J2310 PER 1MG) IV STA (13:09)
[2021-08-09] MEDS ORDERED: NALOXONE 2MG/2ML SYRINGE (J2310 PER 1MG) As Ordered ONE (13:09)
[2021-08-09] MEDS ORDERED: ETOMIDATE INJ 20MG/10ML VIAL IV STA (13:23)
[2021-08-09] MEDS ORDERED: MIDAZOLAM HCL 50 MG in D5W 40 ML IV SCH (13:25)
[2021-08-09] MEDS ORDERED: MIDAZOLAM HCL 100 MG in D5W 80 ML IV SCH ×2 (13:30→19:05)
[2021-08-09] MEDS ORDERED: NOREPINEPHRINE 4 MG/4 ML AMP As Ordered ONE (13:43)
[2021-08-09] MEDS ORDERED: NOREPINEPHRINE BITARTRATE 8 MG in D5W 492 ML IV SCH (13:45)
--- NOTE | 2021-08-09 13:50 | REP ---
INDICATION: ET check. COMPARISON: 06/05/2021. TECHNIQUE: Single portable AP view of the chest was performed. FINDINGS: Endotracheal tube tip is 4.5 cm above the kilo. Nasogastric tube is present. The side port is in the distal esophagus, approximately 5 cm proximal to the gastroesophageal junction. Subsegmental atelectatic changes seen in the right lung base. There are crowded lung markings in the left lung base. The heart and mediastinum are unremarkable. IMPRESSION: Endotracheal tube tip approximately 4.5 cm above the kilo. Nasogastric tube side port in the distal esophagus, approximately 5 cm proximal to the gastroesophageal junction. Subsegmental atelectasis right lung base. <Electronically signed by Esequiel Hopson > 08/09/21 [id number]
[2021-08-09] MEDS ORDERED: PHENYLEPHRINE HCL INJ 50 MG in D5W 495 ML IV SCH (14:00)
[2021-08-09] MEDS ORDERED: PHENTOLAMINE MESYLATE 5 MG VIAL (J2760 UP TO 5MG) INFIL ONE (14:35)
--- NOTE | 2021-08-09 14:40 | REP ---
INDICATION: NEURO. COMPARISON: December 10, 2017 and October 07, 2016. TECHNIQUE: Helical scanning is acquired. 5 mm axial images were reformatted. Coronal MPR images were generated. FINDINGS: Preliminary digital mutuel teller radiograph demonstrates alli tracheal and alli esophageal tubes. The patient is edentulous. On bone window settings, bony calvarium is intact. No skull fracture or bony destructive lesion is seen. Visualized paranasal sinuses are clear. No intraorbital abnormality is seen. There is punctate physiologic calcification of the basal ganglia bilaterally unchanged from comparison studies 2015 and 2017. Hopson-white differentiation pattern is normal above and below the tentorium. There is no evidence of intracranial hemorrhage or acute infarction. No extra-axial fluid collection, mass, or midline shift is seen. IMPRESSION: Negative noncontrast head CT. Alli tracheal and alli esophageal tubes noted on mutuel teller view. <Electronically signed by Iban Augustin > 08/09/21 [id number]
[2021-08-09 14:42] LABS: ACETAMINOPHEN LEVEL 4.8 UG/ML (10.0-30.0); ALT/SGPT 16 U/L (12-78); BILIRUBIN,DIRECT < 0.1 MG/DL (0.0-0.2); BILIRUBIN,TOTAL 0.1 MG/DL (0.2-1.0); BLOOD UREA NITROGEN 15 MG/DL (7-18); CALCIUM LEVEL 8.9 MG/DL (8.5-10.1); CARBON DIOXIDE LEVEL 22 MEQ/L (21-32); CHLORIDE LEVEL 105 MEQ/L (98-107); CK-MB VALUE MASS 1.1 NG/ML (<3.6); CPK CREATINE PHOSPHOKINASE 102 U/L (26-192); CREATININE FOR GFR 1.41 MG/DL (0.55-1.30); ETHYL ALCOHOL (ETHANOL) < 0.003 % (0.000-0.010); GLOMERULAR FILTRATION RATE 41.2 (>51); GLUCOSE, FASTING 134 MG/DL (70-100); MB/CK RELATIVE INDEX 1.08 (< OR =4); POTASSIUM SERUM 4.7 MEQ/L (3.5-5.1); SALICYLATE LEVEL 3.2 MG/DL (5.0-30.0); SODIUM LEVEL 137 MEQ/L (136-145); THYROID STIMULATING HORMONE 0.405 uIU/ML (0.358-3.740); TROPONIN I < 0.02 NG/ML (< 0.10)
[2021-08-09 15:08] LABS: BASO # 0.1 10^3/uL (0.0-0.2); BASO % 0.3 % (0.0-1.0); EOS % 0.1 % (0.0-3.0); HEMATOCRIT 28.4 % (36.0-47.0); HEMOGLOBIN 9.3 g/dl (12.0-15.5); LYMPH # 1.1 10^3/uL (1.5-5.0); LYMPH % 5.5 % (24.0-44.0); MEAN CORPUSCULAR HGB CONC 32.7 g/dl (32.0-36.5); MEAN CORPUSCULAR VOLUME 100.7 fl (80.0-96.0); NEUTROPHILS # 17.2 10^3/uL (1.5-8.5); NEUTROPHILS % 88.6 % (36.0-66.0); PLATELET COUNT, AUTOMATED 367 10^3/uL (150-450); RED BLOOD COUNT 2.82 10^6/uL (4.00-5.40); WHITE BLOOD COUNT 19.4 10^3/uL (4.0-10.0)
[2021-08-09] MEDS: ROCURONIUM BROMIDE 50 MG/5 ML VIAL IV SCH ×2 (15:15→15:30)
[2021-08-09 15:34] LABS: AMPHETAMINES LEVEL URINE NEGATIVE (NEGATIVE); BARBITURATES URINE NEGATIVE (NEGATIVE); BENZODIAZEPINES URINE POSITIVE (NEGATIVE); CANNABINOIDS URINE NEGATIVE (NEGATIVE); COCAINE METABOLITE URINE NEGATIVE (NEGATIVE); METHADONE URINE NEGATIVE (NEGATIVE); OPIATES URINE NEGATIVE (NEGATIVE); PHENCYCLIDINE URINE NEGATIVE (NEGATIVE)
[2021-08-09] MEDS ORDERED: LACTULOSE 20 GM/30 ML SYRUP UD NG ONE (15:45)
[2021-08-09 15:54] LABS: RSV AMPLIFICATION NEGATIVE (NEGATIVE)
--- NOTE | 2021-08-09 16:05 | REP ---
INDICATION: unresponsive and hypotensive ? sepsis. COMPARISON: CT 03/02/2021, radiographs today. TECHNIQUE: CT chest performed without the use of intravenous contrast. Sagittal and coronal reconstruction images are performed. FINDINGS: Lungs: There are bibasilar atelectatic changes right greater than left. Mediastinum: No gross adenopathy. Leydi: No gross adenopathy. Axilla: No gross adenopathy. Pleura: No effusion. Heart: Not enlarged. Thoracic aorta: No aneurysm. Endotracheal tube tip is approximately 3 cm above the kilo. Nasogastric tube side port is approximately 5 cm proximal to the gastroesophageal junction. Visualized osseous structures: There are degenerative changes of the spine. IMPRESSION: Bibasilar atelectatic changes, right greater than left. Endotracheal tube tip 3 cm above the kilo. Nasogastric tube side port is approximately 5 cm proximal to the gastroesophageal junction. <Electronically signed by Esequiel Hopson > 08/09/21 [id number]
[2021-08-09] MEDS: NS 1,000 ML IV SCH ×2 (16:06→22:41)
[2021-08-09] MEDS ORDERED: VANCOMYCIN HCL 1,000 MG, VIAL MATE ADAPTER 1 EACH in NS 250 ML IV ONE (16:10)
[2021-08-09] MEDS ORDERED: CEFEPIME HCL 2 GM in D5W MINI-BAG PLUS 50 ML IV ONE (16:10)
--- NOTE | 2021-08-09 16:11 | REP ---
INDICATION: unresponsive and hypotensive ? sepsis COMPARISON: July 24, 2021. TECHNIQUE: Helical scanning is acquired and 3 mm axial images were reformatted. Coronal and sagittal MPR images were generated and reviewed. FINDINGS: Preliminary minute clerk views of the abdomen show an unremarkable gas pattern. There is a new moderate subsegmental atelectatic change in the right lower lobe right middle lobe and left lower lobe. There are very small amounts of bilateral pleural fluid which are also new. Small cysts are again seen in the liver. No new focal liver lesion is seen. Spleen remains unremarkable. A nasogastric tube is seen terminating in the distal esophagus just above the GE junction. The gallbladder surgically absent. No pancreatic abnormality is seen. The kidneys appear morphologically intact. Normal caliber aorta is seen. There is no evidence of free intraperitoneal air or abscess. A Shannon catheter is noted in the urinary bladder which is empty. There are a few fluid-filled normal caliber small bowel loops. previously noted mural thickening in the colon is less pronounced. No obstructive lesion is seen. No pelvic mass or adenopathy. No abscess seen. No bony destructive lesion. IMPRESSION: The previously noted colonic mural thickening is improved. No evidence of free air, abscess or abnormal fluid collection. Shannon catheter in place. NG tube terminates in the distal esophagus. There are very small amounts of pleural fluid in each posterior gutter. There is bibasilar discoid atelectasis which is new. <Electronically signed by Iban Augustin > 08/09/21 [id number]
[2021-08-09] MEDS ORDERED: RA M10TA PO (18:22)
[2021-08-09] MEDS ORDERED: GNPLIQ60 PO (18:22)
[2021-08-09] MEDS ORDERED: ACET500T15 PO (18:22)
[2021-08-09] MEDS ORDERED: FAMO40TA3 PO (18:24)
[2021-08-09] MEDS ORDERED: IBUP-359 PO (18:24)
[2021-08-09] MEDS ORDERED: HOME MED LIST COMPLETE! XX SCH (18:25)
--- NOTE | 2021-08-09 18:31 | REP ---
INDICATION: follow up NGT adjustment. COMPARISON: There earlier today. TECHNIQUE: Single portable AP view of the chest was performed. FINDINGS: Bibasilar atelectatic changes again seen. Heart is normal in size and the mediastinal silhouette is unremarkable. Endotracheal tube tip is approximately 4.9 cm above the kilo. Nasogastric tube is well within the stomach, the distal end is not visualized. IMPRESSION: Bibasilar atelectatic change. Endotracheal tube tip 4.9 cm above the kilo. Distal end of nasogastric tube is not visualized, and is deep within the stomach. <Electronically signed by Esequiel Hopson > 08/09/21 [id number]
[2021-08-09] MEDS ORDERED: MORPHINE 2 MG/ML 1ML VIAL (J2270) IV PRN (19:05)
[2021-08-09] MEDS ORDERED: REFRIGERATOR IV KEYS XX PRN (19:05)
[2021-08-09] MEDS: D5W/0.45% SODIUM CHLORIDE 1,000 ML IV SCH ×2 (20:03→22:41)
[2021-08-09] MEDS: IPRATROPIUM 0.5MG/ALBUTEROL 2.5MG INH SOL UD 3ML (DUONEB) NEB SCH ×2 (20:27→23:21)
[2021-08-09] MEDS ORDERED: ROCURONIUM BROMIDE 50 MG/5 ML VIAL ONE (20:53)
[2021-08-09] MEDS ORDERED: ETOMIDATE INJ 20MG/10ML VIAL ONE (20:53)
[2021-08-09] MEDS: CHLORHEXIDINE GLUCONATE 0.12 % 15ML UDC (PERIDEX ORAL RINSE) MT SCH (21:00)
[2021-08-09 21:40] LABS: ABG BASE EXCESS -6.7 (-2.0-2.0); ABG HCO3 18.3 MEQ/L (22.0-26.0); ABG O2 SATURATION 93.9 % (95.0-99.0); ABG PARTIAL PRESSURE CO2 33.9 mmHg (35.0-45.0); ABG STANDARD HCO3 18.9 MEQ/L (22.0-26.0); ABG TOTAL CO2 19.3 MEQ/L (22.0-29.0); ABG pH (ARTERIAL) 7.349 UNITS (7.350-7.450)
--- NOTE | 2021-08-09 22:17 | RO ---
OPERATIVE NOTE DATE OF OPERATION: 08/09/2021 PROCEDURE: Insertion of triple lumen central venous catheter. PREOPERATIVE DIAGNOSIS: Hypotension. POSTOPERATIVE DIAGNOSIS: Hypotension. SURGEON: Demetrius Pereira M.D. SPLITTING MACHINE TENDER: ANESTHESIA: The procedure was performed emergently. PROCEDURE: The right femoral area was prepped and draped in the usual sterile manner. Using a large bore needle, the right femoral vein easily cannulated. In a modified Seldinger technique, a triple lumen central venous catheter was easily placed. Good venous return was obtained from all three ports. Each port was then flushed. The line was then sutured in place, a sterile dressing applied. No complications noted. [facility]
--- NOTE | 2021-08-09 23:30 | HPE ---
HISTORY AND PHYSICAL/CRITICAL CARE ADMIT NOTE DATE OF ADMISSION: 08/09/2021 (start time 1814 and stop time 1917) HISTORY OF PRESENT ILLNESS: I follow Jodi Henson. The patient was seen and chart reviewed. I spoke at length with Dr. Govea here in the Emergency Department; he has gotten history from the patient's family. In essence, this is a woman with underlying asthma; continued tobacco abuse and bipolar disorder, who was seen this morning at 5:30 by the family and was well. She was seen again by her father at 8:00. Her came from work, said they usually later on take a nap, but her breathing was irregular. EMS was summoned. They were not able to arouse her. Narcan was given, was still unable to be aroused. She was brought into the ER. She was essentially obtunded. Due to concern over inability to protect her airway, she was intubated. Workup includes CT scan of head, chest, abdomen and pelvis; which was all unremarkable. Laboratories were done with a white blood cell count of 19.4, hemoglobin 9.3, platelet count 367,000, 80% segs, no bands. Sodium 137, potassium 4.7, chloride 105, CO2 22, BUN 15, creatinine 1.41. First lactate of 3.2. Ammonia 33. Albumin 3.0. Liver function studies unremarkable. Tox screen positive only for benzodiazepines; question is to whether or not that was given in the ER. Respiratory panel unremarkable. First blood gas obtained after intubation shows a pH of 7.301, pCO2 of 44.8 and pO2 of 97 on unknown ventilator settings. Chest x-ray shows ET tube in good position. Question of some basilar atelectasis and this is confirmed by CT scan of the chest. She did not have a fever, but was somewhat hypotensive in the ER, although I was told 2 liters of fluid, I can only find 1 liter documented. She was given an additional liter by myself. She had been started on Levophed by the ER. Central line was attempted by them unremarkable. I then placed a right femoral triple lumen central venous catheter occupying less than 5 minutes time. On exam currently, she is sedate on Versed as apparently she was more hypotensive on Propofol given by the ER. Currently her heart rate is 110 and irregular, respiratory rate 16 via the ventilator, blood pressure currently on 12 mcg of Levophed is 120 systolic. HEENT shows oral endotracheal and oral gastric tubes in place. Pupils react, sclerae clear. Trachea is in the midline. Membranes are moist. Chest is clear anteriorly to both auscultation and percussion. There are some faint basilar crackles. Cardiac exam is regular. Peripheral pulses palpable, no edema. Abdomen is soft, there are active bowel sounds. No convincing organomegaly or masses. Extremities without cyanosis or clubbing. Neurologically, she is sedate but does move extremities to noxious stimuli. CT of the chest as well as abdomen and pelvis are fairly unremarkable for acute findings. There is some minimal pleural fluid bilaterally and some basilar atelectasis. MOST PRESSING PROBLEMS REQUIRING MY IMMEDIATE PRESENCE AT THE BEDSIDE: 1. Altered mental status; essentially unresponsive. 2. Respiratory failure requiring mechanical ventilatory support. 3. History of underlying obstructive lung disease/asthma. 4. Continued tobacco abuse. 5. Bipolar disorder. RECOMMENDATIONS: At this point, given her elevated lactate and her elevated white blood cell count, she will be empirically treated for sepsis. She received Cefepime and Vancomycin in the ER. I will continue Rocephin. Blood cultures have been ordered by the ER and I will order sputum cultures. Repeat blood gas is pending as is a repeat lactate. I did give her an additional liter of fluids. She is actually making good urine at this point. We have been able to wean down on her Levophed. There is no acute pathology and my suspicion would still be that this maybe related to a toxin that does not present itself on our tox screen. According to patient's , her pill bottles, although a direct count was not made, all seem to have in them what they should at this point. Her med list from home includes: Xanax, Amitriptyline, Canavolid oil, Plavix, Arnuity, Lisinopril, Loperamide, Latuda, Zofran, Protonix, Carafate, Theophylline, Ubrelvy and Anoro as well as p.r.n. Ambien. At this point, we will proceed as outlined above. My hope is that after aggressive hydration and empiric antibiotics and supportive care, we will see improvement. If not, then we may consider LP for mental status, but given the fact that she is on Plavix, we will have to wait several days before that it is safe. At this point, we will proceed as outlined above. I left the bedside at 1918 hours. 63 minutes of critical care time at the bedside, less than 5 minutes occupied for procedures.
[2021-08-10] VITALS (45 sets, daily range): BP systolic 98–140; BP diastolic 59–80
--- NOTE | 2021-08-10 00:16 | ECGEPIP ---
[facility] - ED Test Date: 2021-08-09 Pat Name: RU DIAZ Department: Room: - Gender: Female Convex Grinder Operator: BENNIE : 1965 Requested By: YONIS Martinez Order Number: [id number] Reading MD: Babatunde Thompson Measurements Intervals [place] Rate: 118 P: 56 NM: 182 QRS: 59 QRSD: 92 T: 53 QT: 320 QTc: 448 Interpretive Statements Sinus tachycardia RATE CHANGE COMPARED TO 01/27/21 Electronically Signed on 08-10-2021 0:15:49 EDT by Babatunde Thompson
[2021-08-10 00:19] LABS: APPEARANCE, URINE CLEAR (CLEAR); BACTERIA, URINE AUTO NEGATIVE (NEGATIVE); BILIRUBIN, URINE AUTO NEGATIVE (NEGATIVE); BLOOD, URINE BLOOD 2+ (NEGATIVE); COLOR, URINE YELLOW (YELLOW); GLUCOSE, URINE (UA) AUTO NEGATIVE (NEGATIVE); KETONE, URINE AUTO NEGATIVE (NEGATIVE); LEUKOCYTE ESTERASE, URINE AUTO NEGATIVE (NEGATIVE); MUCUS, URINE SMALL (NEGATIVE); NITRITE, URINE AUTO NEGATIVE (NEGATIVE); PROTEIN, URINE AUTO NEGATIVE (NEGATIVE); RBC, URINE AUTO 56 /HPF (0-3); SPECIFIC GRAVITY URINE AUTO 1.015 (1.002-1.035); SQUAMOUS EPITHELIAL CELL UR AU 0 /HPF (0-6); TRANSITIONAL EPITHELIAL AUTO <1 /HPF; UROBILINOGEN, URINE AUTO 0.2 mg/dL (0.0-2.0); WBC, URINE AUTO 1 /HPF (0-3)
[2021-08-10] MEDS ORDERED: NOREPINEPHRINE BITARTRATE 8 MG in D5W 492 ML IV SCH ×2 (01:45)
[2021-08-10] MEDS: IPRATROPIUM 0.5MG/ALBUTEROL 2.5MG INH SOL UD 3ML (DUONEB) NEB SCH ×4 (03:34→19:10)
[2021-08-10] MEDS: D5W/0.45% SODIUM CHLORIDE 1,000 ML IV SCH ×3 (04:12→16:20)
[2021-08-10 04:39] LABS: BASO % 0.2 % (0.0-1.0); EOS % 0.2 % (0.0-3.0); HEMATOCRIT 25.5 % (36.0-47.0); HEMOGLOBIN 8.1 g/dl (12.0-15.5); LYMPH # 1.9 10^3/uL (1.5-5.0); LYMPH % 15.3 % (24.0-44.0); MEAN CORPUSCULAR HEMOGLOBIN 32.3 pg (27.0-33.0); MEAN CORPUSCULAR HGB CONC 31.8 g/dl (32.0-36.5); MEAN CORPUSCULAR VOLUME 101.6 fl (80.0-96.0); MONO # 1.6 10^3/uL (0.0-0.8); MONO % 12.8 % (2.0-8.0); NEUTROPHILS # 8.9 10^3/uL (1.5-8.5); NEUTROPHILS % 70.9 % (36.0-66.0); PLATELET COUNT, AUTOMATED 298 10^3/uL (150-450); RED BLOOD COUNT 2.51 10^6/uL (4.00-5.40); WHITE BLOOD COUNT 12.6 10^3/uL (4.0-10.0)
[2021-08-10 05:36] LABS: ALBUMIN 2.5 GM/DL (3.2-5.2); ALT/SGPT 32 U/L (12-78); BILIRUBIN,TOTAL 0.2 MG/DL (0.2-1.0); BLOOD UREA NITROGEN 12 MG/DL (7-18); CALCIUM LEVEL 7.9 MG/DL (8.5-10.1); CARBON DIOXIDE LEVEL 27 MEQ/L (21-32); CHLORIDE LEVEL 106 MEQ/L (98-107); CHOLESTEROL LEVEL 169 MG/DL (< 200); CPK CREATINE PHOSPHOKINASE 4337 U/L (26-192); CREATININE FOR GFR 0.61 MG/DL (0.55-1.30); GLOMERULAR FILTRATION RATE > 60.0 (>51); GLUCOSE, FASTING 144 MG/DL (70-100); LDH LACTATE DEHYDROGENASE 240 U/L (84-246); PHOSPHORUS LEVEL 2.7 MG/DL (2.5-4.9); POTASSIUM SERUM 4.5 MEQ/L (3.5-5.1); SODIUM LEVEL 140 MEQ/L (136-145); TOTAL PROTEIN 5.3 GM/DL (6.4-8.2); TRIGLYCERIDES LEVEL 169 MG/DL (<150)
[2021-08-10 05:54] LABS: ABG BASE EXCESS -5.7 (-2.0-2.0); ABG HCO3 18.9 MEQ/L (22.0-26.0); ABG O2 SATURATION 93.7 % (95.0-99.0); ABG PARTIAL PRESSURE CO2 33.3 mmHg (35.0-45.0); ABG PARTIAL PRESSURE O2 73.6 mmHg (75.0-100.0); ABG STANDARD HCO3 19.7 MEQ/L (22.0-26.0); ABG TOTAL CO2 19.9 MEQ/L (22.0-29.0); ABG pH (ARTERIAL) 7.372 UNITS (7.350-7.450)
[2021-08-10] MEDS: HEPARIN SOD (PORCINE) 5000UNITS/ML 1ML VIAL/SYRINGE SC SCH ×3 (06:00→22:58)
--- NOTE | 2021-08-10 08:27 | REP ---
INDICATION: intubated. COMPARISON: Multiple the latest yesterday at 6 p.m. TECHNIQUE: Portable FINDINGS: The technique utilized in obtaining the radiograph has magnified the cardiac silhouette and accentuated the interstitial markings. The endotracheal tube and nasogastric tube are unchanged. The lung sanchez are unchanged. There is no change in the osseous structures. IMPRESSION: No change from yesterday at 6 p.m. <Electronically signed by Ant Solis > 08/10/21 [id number]
[2021-08-10] MEDS ORDERED: PANTOPRAZOLE 40MG VIAL (C9113 PER 1) IV SCH (09:00)
[2021-08-10] MEDS: CHLORHEXIDINE GLUCONATE 0.12 % 15ML UDC (PERIDEX ORAL RINSE) MT SCH (09:00)
--- NOTE | 2021-08-10 09:52 | CCN ---
CRITICAL CARE NOTE DATE: 08/10/2021 START TIME: 834 STOP TIME: 909 SUBJECTIVE: I again attended Jodi Morales here in the Intensive Care. Patient has been examined and chart reviewed. I spoke at length with the nurse at bedside. She has been able to be weaned off the Levophed in the wee hours of this morning. Current blood pressure 106 systolic. Heart rate remains in the 90s to low 100s with a sinus mechanism. Respiratory rate is rarely over the ventilator. She is making good urine. I and O's midnight to midnight 2950 ml in with 740 ml out. Most recent laboratories shows white blood cell count down to 12.6, hemoglobin 8.1, platelet count 298,000, 70.9% segs, no bands. Sodium 140, K 4.5, chloride 106, CO2 27, BUN 12, creatinine 0.61, glucose 144. Lactate cleared at 1.7. Bilirubin remains normal. AST is mildly elevated at 135. CK elevated at 4337. Albumin is depressed at 2.5. Blood gas done this morning on a PRBC rate of 15, tidal volume 400, PEEP 5, FIO2 of 30%, has a pH of 7.372, pCO2 of 33.3, and a pO2 of 73.6. Chest x-ray done this morning shows her endotracheal tube and orogastric tube in good position. Film was mildly rotated. There are some atelectatic changes at the bases and the film is suboptimal inspiratory effort but no acute findings compared to yesterday. OBJECTIVE: On exam, she is sedate, remains on a Versed drip. Pupils react. Sclera clear. Trachea is in the midline. No obvious JVD or adenopathy. Chest anteriorly is clear to both auscultation and percussion, expansion symmetric. No significant focal or adventitious breath sounds are identified. There are some faint crackles at the bases. Cardiac exam is regular with no murmur or gallop. Peripheral pulses are palpable, no edema. Abdomen is obese, soft, nontender with active bowel sounds. No obvious organomegaly or masses. Extremities: No cyanosis or clubbing. Neurologically, she is quite sedate. The most pressing problems requiring my presence at the bedside: 1. Altered mental status, etiology remains unclear. 2. Anemia, must make sure it is not slow blood loss but suspect much of it is on the basis of dilution. 3. Renal insufficiency, improved. 4. High risk medications/anticoagulation/Plavix. 5. Elevated white blood cell count. 6. Longstanding tobacco abuse. 7. Asthma/COPD. 8. Respiratory failure on the basis of combination of above. At this point, we will discontinue her Versed. I want to more adequately assess her mental status. Hemoglobin is a little diminished from yesterday but I believe much of it is dilutional. There is no obvious source of ongoing blood loss. We will need to get further information from her regarding that particular medication as I reviewed outpatient records from Dr. Monson from March and I do not see Plavix listed on her medication list. In view of her presentation and her elevated white count, we will continue with broad-spectrum antimicrobials. Cultures currently are negative to date. She remains on ulcer and DVT prophylaxis. For now, I will hold her Plavix until I get further confirmation as to its indication as I see nothing in the outpatient record. Otherwise, will proceed as outlined above. She remains critically-ill. Her prognosis remains guarded. I left the bedside at 0910 hours. Thirty-five minutes of critical care time at the bedside not including procedures. NASIR
[2021-08-10] MEDS ORDERED: MIDAZOLAM INJ 2MG/2ML VIAL (J2250 PER 1MG) IV PRN (11:00)
[2021-08-10] MEDS ORDERED: IPRATROPIUM 0.5MG/ALBUTEROL 2.5MG INH SOL UD 3ML (DUONEB) NEB PRN (15:40)
--- NOTE | 2021-08-10 15:52 | IPNPDOC ---
Text Note Date of Service The patient was seen on 08/10/21. NOTE Subjective: Patient is a 56-year-old female with a PMHx Asthma / COPD, Hx of Tobacco abuse, Bipolar disorder, of who presented to the ER the EMS after she was found unresponsive at home by her . Story was noted to ER provider who has collected the information from her . She was noted to have been last seen well at 530AM on 08/09. Her came from work, who said that they usually take a nap but was breathing irregularly. EMS was called and patient was given Narcan in the field without any response. She was taken to the ER for further evaluation. In the ER, there is a concern to protect her airway, so she was intubated. Patient received a CT scan of her head, chest, abdomen and pelvis, all of which was unremarkable. Lab work did reveal evidence of a leukocytosis and elevated creatinine and lactic acidosis. Toxicology was positive for benzodiazepines; this is a reported home medication. Patient remained in the ICU for approximately 24 hours and was subsequently extubated 08/10 afternoon. Hospitalist service was contacted to assume her care. Patient was seen and examined at the bedside. Currently, patient is still slightly drowsy, however, is able to follow my commands. Does not appear to be in any distress. Objective: Vitals (See below) General: Lying in bed, appears comfortable, drowsy HEENT: NC, AT CVS: +S1S2 Lungs: Fair air entry b/l, no appreciable wheezing, rales or rhonchi Abdomen: Soft, ND, NT Extremities: - Edema, - Calf tenderness Neuro: Moving all 4 extremities Imaging: CT head 08/09: Negative noncontrast head CT. Alli tracheal and alli esophageal tubes noted on cras view. CXR 08/09: Endotracheal tube tip approximately 4.5 cm above the kilo. Nasogastric tube side port in the distal esophagus, approximately 5 cm proximal to the gastroesophageal junction. Subsegmental atelectasis right lung base. CT Chest 08/09: Bibasilar atelectatic changes, right greater than left. Endotracheal tube tip 3 cm above the kilo. Nasogastric tube side port is approximately 5 cm proximal to the gastroesophageal junction. CT abdomen / pelvis 08/09: The previously noted colonic mural thickening is improved. No evidence of free air, abscess or abnormal fluid collection. Shannon catheter in place. NG tube terminates in the distal esophagus. There are very small amounts of pleural fluid in each posterior gutter. There is bibasilar discoid atelectasis which is new. CXR 08/09: Bibasilar atelectatic change. Endotracheal tube tip 4.9 cm above the kilo. Distal end of nasogastric tube is not visualized, and is deep within the stomach. CXR 08/10: No change from yesterday at 6 p.m. Assessment and plan: s/p Acute ventilator dependent respiratory failure - Currently does not have any evidence of respiratory compromise - Patient was intubated on 08/09 in the ER for airway protection - Patient was extubated on 08/10 afternoon - ABGs noted Leukocytosis - etiology unclear - ROS negative - Has remained afebrile - BP was initially on lower limits of normal; has since normalized - Respiratory panel 08/09: negative - Blood cultures 08/09: Pending - Sputum cultures 08/09: Pending - UA negative - c/w Ceftriaxone (Day #2); s/p Cefepime and Vancomycin (single dose in ER) s/p Toxic encephalopathy - possibly 2/2 medications? - Will slowly reintroduce medications in the next 24 hours s/p SAMANTHA - likely 2/2 pre-renal etiology - Cr has normalized s/p Lactic acidosis Macrocytic anemia - Hg has had a slight decline; likely 2/2 hemodilution - Will check stool for occult blood / Iron panel / B12 / Folate / Reticulocyte count - Will continue to follow trend Asthma / COPD - No evidence of exacerbation - Takes Theophylline at home; currently on hold - Will adjust inhaled therapy PTSD / Bipolar disorder / Depression / Anxiety / Insomnia - Will slowly reintroduce medications in the next 24 hours - Has been on Amitriptyline / Alprazolam / Keppra / Lurasidone / Melatonin / Zolpidem - Follows with Dr. Jackson, Psychiatrist as an outpatient HTN - BP well controlled - Will continue to hold Lisinopril Vertebral artery stenosis - 06/2020; moderate to high grade stenosis at the origin of the vertebral artery bilaterally - Discussed whit Neurology; last saw patient on 07/25/2021 - Will resume ASA / Plavix Hx of pituitary neoplasm - s/p resection 2001 or 2005 - No evidence of recurrence Chronic diarrhea? - Will hold Cholestyramine / Loperamide for now Vitamin D deficiency - Supplementation on hold GERD - Famotidine on hold - c/w Protonix IV; will transition to PO in 24 hours DVT prophylaxis - c/w Heparin Disposition: - Awaiting clinical improvement Joes MACHADO, I+O VSJose I+O Laboratory Tests 08/10/21 04:09 Vital Signs Date Time Temp Pulse Resp B/P (MAP) Pulse Ox O2 Delivery O2 Flow Rate FiO2 08/10/21 14:15 109 90 Aerosol Mask 100 08/10/21 14:00 128/74 (92) 08/10/21 12:00 97.8 08/10/21 08:00 16 I&O- Last 24 Hours up to 6 AM 08/10/21 06:00 Intake Total 4250 ml Output Total 1165 ml Balance 3085 ml CLAIRE WEI MD Aug 10, 2021 15:35
[2021-08-10] MEDS ORDERED: FAMOTIDINE 20 MG TAB PO PRN (15:55)
[2021-08-10 18:32] LABS: FERRITIN 25 NG/ML (8-252); IRON (FE) 50 UG/DL (50-170); PERCENT SATURATION 16.5 % (13.2-45.0); TOTAL IRON BINDING CAPACITY 303 UG/DL (250-450)
[2021-08-10 18:49] LABS: FOLATE > 24.0 NG/ML (>5.4); VITAMIN B12 LEVEL 1182 PG/ML (247-911)
[2021-08-10] MEDS: DIVALPROEX 500MG *ER* TAB PO SCH (20:25)
[2021-08-10] MEDS: cefTRIAXone SOD 1 GM in D5W MINI-BAG PLUS 50 ML IV SCH ×3 (23:00)
[2021-08-11] VITALS (7 sets, daily range): BP systolic 132–143; BP diastolic 66–86
[2021-08-11] MEDS: IPRATROPIUM 0.5MG/ALBUTEROL 2.5MG INH SOL UD 3ML (DUONEB) NEB SCH ×4 (01:20→20:27)
[2021-08-11 04:24] LABS: BASO # 0.1 10^3/uL (0.0-0.2); BASO % 0.8 % (0.0-1.0); EOS # 0.1 10^3/uL (0.0-0.5); EOS % 0.9 % (0.0-3.0); HEMATOCRIT 24.2 % (36.0-47.0); HEMOGLOBIN 7.8 g/dl (12.0-15.5); LYMPH # 2.1 10^3/uL (1.5-5.0); LYMPH % 19.9 % (24.0-44.0); MEAN CORPUSCULAR HEMOGLOBIN 32.5 pg (27.0-33.0); MEAN CORPUSCULAR HGB CONC 32.2 g/dl (32.0-36.5); MEAN CORPUSCULAR VOLUME 100.8 fl (80.0-96.0); MONO # 1.1 10^3/uL (0.0-0.8); MONO % 10.8 % (2.0-8.0); NEUTROPHILS % 67.1 % (36.0-66.0); PLATELET COUNT, AUTOMATED 286 10^3/uL (150-450); WHITE BLOOD COUNT 10.4 10^3/uL (4.0-10.0)
[2021-08-11 05:35] LABS: ALBUMIN 2.6 GM/DL (3.2-5.2); ALT/SGPT 34 U/L (12-78); BILIRUBIN,TOTAL 0.2 MG/DL (0.2-1.0); BLOOD UREA NITROGEN 4 MG/DL (7-18); CALCIUM LEVEL 8.2 MG/DL (8.5-10.1); CARBON DIOXIDE LEVEL 28 MEQ/L (21-32); CHLORIDE LEVEL 109 MEQ/L (98-107); CHOLESTEROL LEVEL 167 MG/DL (< 200); CPK CREATINE PHOSPHOKINASE 3005 U/L (26-192); CREATININE FOR GFR 0.54 MG/DL (0.55-1.30); GLOMERULAR FILTRATION RATE > 60.0 (>51); GLUCOSE, FASTING 90 MG/DL (70-100); LDH LACTATE DEHYDROGENASE 205 U/L (84-246); PHOSPHORUS LEVEL 2.2 MG/DL (2.5-4.9); SODIUM LEVEL 142 MEQ/L (136-145); TOTAL PROTEIN 5.5 GM/DL (6.4-8.2); TRIGLYCERIDES LEVEL 228 MG/DL (<150)
[2021-08-11] MEDS: HEPARIN SOD (PORCINE) 5000UNITS/ML 1ML VIAL/SYRINGE SC SCH ×3 (06:08→21:42)
[2021-08-11 06:48] LABS: VALPROIC ACID (DEPAKOTE) 34.1 UG/ML (50.0-100.0)
--- NOTE | 2021-08-11 08:32 | REP ---
INDICATION: intubated. COMPARISON: Portable chest, 08/10/2021. TECHNIQUE: Upright AP portable chest image was obtained. FINDINGS: There has been interval improvement in the aeration of the lungs with minimal linear atelectasis in both lung bases. There are no pleural effusions. The endotracheal tube and nasogastric tubes have been removed. The heart borders and mediastinum are normal. IMPRESSION: 1. Improved aeration of the lungs. 2. The endotracheal tube and nasogastric tubes have been removed. <Electronically signed by Shahid Okeefe > 08/11/21 [id number]
[2021-08-11] MEDS: ASPIRIN 81MG ENTERIC TABLET PO SCH (09:09)
[2021-08-11] MEDS: PANTOPRAZOLE 40MG TAB (PROTONIX) PO SCH (09:09)
[2021-08-11] MEDS: CLOPIDOGREL 75 MG TAB PO SCH (09:09)
[2021-08-11] MEDS ORDERED: MOM 30ML SUSPENSION UDC PO PRN (11:05)
[2021-08-11] MEDS ORDERED: SENOKOT S TAB PO PRN (11:05)
--- NOTE | 2021-08-11 11:13 | IPNPDOC ---
Text Note Date of Service The patient was seen on 08/11/21. NOTE Subjective: Patient is a 56-year-old female with a PMHx Asthma / COPD, Hx of Tobacco abuse, Bipolar disorder, of who presented to the ER the EMS after she was found unresponsive at home by her . Story was noted to ER provider who has collected the information from her . She was noted to have been last seen well at 530AM on 08/09. Her came from work, who said that they usually take a nap but was breathing irregularly. EMS was called and patient was given Narcan in the field without any response. She was taken to the ER for further evaluation. In the ER, there is a concern to protect her airway, so she was intubated. Patient received a CT scan of her head, chest, abdomen and pelvis, all of which was unremarkable. Lab work did reveal evidence of a leukocytosis and elevated creatinine and lactic acidosis. Toxicology was positive for benzodiazepines; this is a reported home medication. Patient remained in the ICU for approximately 24 hours and was subsequently extubated 08/10 afternoon. Hospitalist service was contacted to assume her care. Patient was seen and examined at the bedside. Patient is much more awake today. She denies any chest pain, shortness of breath applications or cough. Reports some chronic pain of her back and shoulders. However, this remains relatively unchanged. Has not experienced any nausea, vomiting, abdominal discomfort or diarrhea. Denies any urinary discomfort. Objective: Vitals (See below) General: Sitting up in bed and appears to be comfortable without any acute distress. She is awake and alert, oriented 3 HEENT: Normocephalic and atraumatic CVS: +S1S2 Lungs: There appears to be fair air entry bilaterally without any evidence of wheezing, crackles or rhonchi Abdomen: Soft, nondistended and nontender Extremities: No evidence of edema Imaging: CT head 08/09: Negative noncontrast head CT. Alli tracheal and alli esophageal tubes noted on human resources project coordinator view. CXR 08/09: Endotracheal tube tip approximately 4.5 cm above the kilo. Nasogastric tube side port in the distal esophagus, approximately 5 cm proximal to the gastroesophageal junction. Subsegmental atelectasis right lung base. CT Chest 08/09: Bibasilar atelectatic changes, right greater than left. Endotracheal tube tip 3 cm above the kilo. Nasogastric tube side port is approximately 5 cm proximal to the gastroesophageal junction. CT abdomen / pelvis 08/09: The previously noted colonic mural thickening is improved. No evidence of free air, abscess or abnormal fluid collection. Shannon catheter in place. NG tube terminates in the distal esophagus. There are very small amounts of pleural fluid in each posterior gutter. There is bibasilar discoid atelectasis which is new. CXR 08/09: Bibasilar atelectatic change. Endotracheal tube tip 4.9 cm above the kilo. Distal end of nasogastric tube is not visualized, and is deep within the stomach. CXR 08/10: No change from yesterday at 6 p.m. CXR 08/11: 1. Improved aeration of the lungs. 2. The endotracheal tube and nasogastric tubes have been removed. Assessment and plan: Leukocytosis - etiology unclear, possibly 2/2 reactive etiology - ROS negative - Has remained afebrile / Hemodynamically stable - Respiratory panel 08/09: Negative - Blood cultures 08/09: No growth at 24 hours - Sputum cultures 08/09: Gram positive cocci in pair / chains / clusters, Few gram positive rods - UA negative - c/w Ceftriaxone (Day #3); s/p Cefepime and Vancomycin (Single dose in ER) s/p Toxic encephalopathy - possibly 2/2 medications? - Upon discussion with patient, this morning she reported that the last thing t hat she remembers doing is taking his Xanax prior to taking a nap in the morning - Currently patient is oriented to person, place and time - Physicals without any deficits - Imaging noted above - Will continue to hold Alprazolam / Melatonin / Zolpidem s/p Acute ventilator dependent respiratory failure - Currently does not have any evidence of respiratory compromise - Auscultation is clear - Patient was intubated on 08/09 in the ER for airway protection - Patient was extubated on 08/10 afternoon - ABGs noted s/p SAMANTHA - likely 2/2 pre-renal etiology - Cr has normalized s/p Lactic acidosis Macrocytic anemia - Hg has continued to have a decline overnight; however she has remained on IV fluid hydration - No evidence of bleeding - Stool for occult blood pending - Iron panel borderline low - B12 / Folate are adequate - Reticulocyte index 0.7; suggesting hypoproliferative - Will start Iron supplementation - Will continue to follow trend Asthma / COPD - No evidence of exacerbation - Takes Theophylline at home; currently on hold - c/w DuoNeb PRN - Will equivalent home regimen today PTSD / Bipolar disorder / Depression / Anxiety / Insomnia - Will continue to hold Alprazolam / Melatonin / Zolpidem - c/w Keppra - Will resume Amitriptyline and Lurasidone today - Follows with Dr. Jackson, Psychiatrist as an outpatient HTN - BP well controlled - Will continue to hold Lisinopril Vertebral artery stenosis - 06/2020; moderate to high grade stenosis at the origin of the vertebral artery bilaterally - Discussed whit Neurology; last saw patient on 07/25/2021 - c/w ASA / Plavix Hx of pituitary neoplasm - s/p resection 2001 or 2005 - No evidence of recurrence Chronic diarrhea? - No reported diarrhea currently - Will hold Cholestyramine / Loperamide for now Vitamin D deficiency - Will resume supplementation on discharge GERD - c/w Famotidine and Protonix DVT prophylaxis - c/w Heparin Disposition: - Awaiting clinical improvement - Will get patient out of bed today VS,Jose, I+O VS, Jose, I+O Laboratory Tests 08/11/21 03:52 Vital Signs Date Time Temp Pulse Resp B/P (MAP) Pulse Ox O2 Delivery O2 Flow Rate FiO2 08/11/21 04:00 2.0 08/11/21 04:00 98.2 100 18 132/75 (94) 96 Nasal Cannula 08/10/21 16:00 35 I&O- Last 24 Hours up to 6 AM 08/11/21 06:00 Intake Total 3199.2 ml Output Total 3930 ml Balance -730.8 ml CLAIRE WEI MD Aug 11, 2021 11:13
[2021-08-11] MEDS: FERROUS SULFATE 325MG TAB PO SCH ×2 (13:13→21:18)
[2021-08-11] MEDS: AMITRIPTYLINE 25MG TABLET PO SCH (13:13)
[2021-08-11] MEDS: ADVAIR HFA 230/21MCG INHALER INH SCH (20:00)
[2021-08-11] MEDS ORDERED: LURASIDONE HCL 40 MG TAB (LATUDA) PO SCH (21:00)
[2021-08-11] MEDS: DIVALPROEX 500MG *ER* TAB PO SCH (21:24)
--- NOTE | 2021-08-11 21:50 | MHIPNPDOC ---
[facility] Progress Note Progress Note DATE OF SERVICE: 08/11/21 HISTORY: As per Dr. Fam's note: "Patient is a 56-year-old female with a PMHx Asthma / COPD, Hx of Tobacco abuse, Bipolar disorder, of who presented to the ER the EMS after she was found unresponsive at home by her . Story was noted to ER provider who has collected the information from her . She was noted to have been last seen well at 530AM on 08/09. Her came from work, who said that they usually take a nap but was breathing irregularly. EMS was called and patient was given Narcan in the field without any response. She was taken to the ER for further evaluation. In the ER, there is a concern to protect her airway, so she was intubated. Patient received a CT scan of her head, chest, abdomen and pelvis, all of which was unremarkable. Lab work did reveal evidence of a leukocytosis and elevated creatinine and lactic acidosis. Toxicology was positive for benzodiazepines; this is a reported home medication. Patient remained in the ICU for approximately 24 hours and was subsequently extubated 08/10 afternoon. " VITAL SIGNS: See below. NEW TEST RESULTS: See below CURRENT MEDICATIONS: See below. MENTAL STATUS EXAMINATION: Patient is a 56-year old female, who is alert but sleepy, laying in bed, with hospital clothes Speech: Is slurred, slow but is normal in tone and volume Language skills are fair Thought processes including: Linear but slightly confused Thought content: She says she doesn't remember taking a handful of medications but she says she had a previous suicide attempt last year and that she could have tried to kill herself this time. She says she has been depressed, she has had depressed thoughts and angry thoughts against her sister because she is taking care of her father who is ill and her sister won't hep her with his care. Description of associations: Not loose Description of abnormal or psychotic thoughts: Denies Judgment: Poor Insight: Poor Orientation: to place, person and only partially to date and time Recent and remote memory: She doesn't remember "anything" ( about her taking or not taking too many medications at the time) Attention span and concentration: she was able to follow the conversation and stay focused on it Language: no gross abnormalities observed Mood: Sad Affect: constricted/blunted DIAGNOSES: 1. R/O Intentional versus accidental overdose 2. Bipolar disorder, depressed ASSESSMENT: The patient's level of consciousness still is fluctuating at times although she was able to follow the conversation. She was cooperative, she says she does not object going to [facility] once she is medically clear. I think she needs to be admitted to [facility]. She states being overwhelmed taking care of her father, feeling depressed because she watches his health deteriorate and feels impotent because she can't do anything to halt his illness. She resents that her sister is not helping her to take care of their father. She can go to [facility] once medically clear. MANAGEMENT PLAN: Admit to [facility] once medically clear TIME SPENT: 20 minutes. Vital Signs Vital Signs Date Time Temp Pulse Resp B/P (MAP) Pulse Ox O2 Delivery O2 Flow Rate FiO2 08/11/21 16:00 97.7 105 20 136/86 (103) 94 Room Air 08/11/21 12:00 2.0 08/10/21 16:00 35 Laboratory Data 24H Labs Laboratory Tests 2 08/11/21 03:52: Immature Granulocyte % (Auto) 0.5, Neutrophils (%) (Auto) 67.1H, Lymphocytes (%) (Auto) 19.9L, Monocytes (%) (Auto) 10.8H, Eosinophils (%) (Auto) 0.9, Basophils (%) (Auto) 0.8, Neutrophils # (Auto) 7.0, Lymphocytes # (Auto) 2.1, Monocytes # (Auto) 1.1H, Eosinophils # (Auto) 0.1, Basophils # (Auto) 0.1, Nucleated Red Blood Cells % (auto) 0.0, Anion Gap 5L, Glomerular Filtration Rate > 60.0, Calcium Level 8.2L, Phosphorus Level 2.2L, Total Bilirubin 0.2, Aspartate Amino Transf (AST/SGOT) 99H, Alanine Aminotransferase (ALT/SGPT) 34, Alkaline Phosphat ase 74, Lactate Dehydrogenase 205, Total Creatine Kinase 3005H, Total Protein 5.5L, Albumin 2.6L, Albumin/Globulin Ratio 0.9L, Triglycerides Level 228H, Cholesterol Level 167, Valproic Acid (Depakene) Level 34.1L CBC/BMP Laboratory Tests 08/11/21 03:52 Current Medications Current Medications Medications (Trade) Dose Ordered Sig/Khang Route PRN Reason Start Time Stop Time Status Last Admin Dose Admin Albuterol/ Ipratropium (Duoneb (Ipr 0.5mg/Alb 2.5mg)) 3 ml Q2HP PRN NEB SOB/WHEEZING 08/10/21 15:40 Albuterol/ Ipratropium (Duoneb (Ipr 0.5mg/Alb 2.5mg)) 3 ml RQ4H NEB 08/09/21 20:00 08/10/21 15:38 DC 08/10/21 11:06 Albuterol/ Ipratropium (Duoneb (Ipr 0.5mg/Alb 2.5mg)) 3 ml RQ6H NEB 08/10/21 20:00 08/11/21 20:27 Amitriptyline HCl (Elavil) 75 mg DAILY PO 08/11/21 09:00 08/11/21 13:13 Aspirin (Ecotrin) 81 mg DAILY PO 08/11/21 09:00 08/11/21 09:09 Ceftriaxone Sodium 1 gm/ Dextrose 50 ml @ 100 mls/hr Q24H IV 08/10/21 00:00 08/10/21 23:00 Chlorhexidine Gluconate (Peridex Oral Rinse) 15 ml BID MT 08/09/21 21:00 08/10/21 14:30 DC Clopidogrel Bisulfate (PLAVix) 75 mg DAILY PO 08/11/21 09:00 08/11/21 09:09 Dextrose/Sodium Chloride 1,000 ml @ 50 mls/hr Q20H IV 08/09/21 19:05 08/11/21 08:40 DC 08/10/21 16:20 Divalproex Sodium (Depakote Er) 1,000 mg QHS PO 08/10/21 21:00 08/11/21 21:24 Etomidate (Amidate) 20 mg STAT STAT IV 08/09/21 13:23 08/09/21 14:43 DC 08/09/21 13:23 Famotidine (Pepcid) 40 mg DAILYPRN PRN PO HEARTBURN 08/10/21 15:55 Ferrous Sulfate (Ferrous Sulfate) 325 mg BID PO 08/11/21 09:00 08/11/21 21:18 Heparin Sodium (Porcine) (Heparin) 5,000 units Q8H SC 08/10/21 06:00 08/11/21 13:13 Home Med (Home Med List Complete!) ASDIRECTED XX 08/09/21 18:25 08/09/21 18:31 DC Lurasidone HCl (Latuda) 80 mg QHS PO 08/11/21 21:00 08/11/21 16:18 DC Magnesium Hydroxide (Milk Of Magnesia) 30 ml DAILYPRN PRN PO CONSTIPATION 08/11/21 11:05 Midazolam HCl (Versed) 2 mg Q30MP PRN IV AGITATION 08/10/21 11:00 08/10/21 14:30 DC 08/10/21 13:22 Midazolam HCl 100 mg/Dextrose 100 ml @ 2 mls/hr Q24H IV 08/09/21 13:30 08/09/21 20:23 DC 08/09/21 13:50 Midazolam HCl 100 mg/Dextrose 100 ml @ 3 mls/hr Q24H IV 08/09/21 19:05 08/10/21 14:30 DC Midazolam HCl 50 mg/Dextrose 50 ml @ 2 mls/hr Q24H IV 08/09/21 13:25 08/09/21 13:30 DC Morphine Sulfate (Morphine Sulfate Inj) 2 mg Q30M PRN IV SEVERE PAIN (PS 8-10) 08/09/21 19:05 08/10/21 15:38 DC Naloxone HCl (Narcan) 4 mg STAT STAT IV 08/09/21 13:09 08/09/21 13:10 DC 08/09/21 13:09 Non-Formulary Medication (Refrigerator Thomson) Q1M PRN XX SEE LABEL COMMENTS 08/09/21 19:05 Norepinephrine Bitartrate 8 mg/ Dextrose 500 ml @ 15 mls/hr Q24H IV 08/10/21 01:45 08/10/21 09:11 DC Norepinephrine Bitartrate 8 mg/ Dextrose 500 ml @ 37.5 mls/hr [id number] IV 08/09/21 13:45 08/10/21 01:45 DC 08/09/21 13:48 Norepinephrine Bitartrate 8 mg/ Dextrose 500 ml @ 37.5 mls/hr [id number] IV 08/10/21 01:45 08/09/21 13:59 DC Pantoprazole Sodium (Protonix) 40 mg DAILY IV 08/10/21 09:00 08/10/21 16:01 DC 08/10/21 09:19 Pantoprazole Sodium (Protonix) 40 mg DAILY PO 08/11/21 09:00 08/11/21 09:09 Phenylephrine HCl 50 mg/Dextrose 500 ml @ 6 mls/hr Q24H IV 08/09/21 14:00 08/09/21 13:43 DC Rocuronium [place] (Zemuron) 50 mg ASDIRECTED IV 08/09/21 13:23 08/10/21 08:50 DC 08/09/21 15:30 Salmeterol Xinafoate/ Fluticasone (Advair Hfa ) 2 puff RBID INH 08/11/21 20:00 Senna/Docusate Sodium (Senokot S) 1 tab BIDP PRN PO CONSTIPATION 08/11/21 11:05 Sodium Chloride 1,000 ml @ 100 mls/hr Q10H IV 08/09/21 15:15 08/09/21 23:41 DC 08/09/21 22:41 Allergies Coded Allergies: diazepam (Verified Allergy, Severe, ONLY WITH VALIUM-CAUSES ANGIOEDEMA, 06/27/21) iodine (Verified Allergy, Intermediate, HIVES, 06/27/21) latex (Unverified Allergy, Unknown, 06/27/21) cocoa (Verified Adverse Reaction, Intermediate, CHOCOLATE - MIGRAINES, 06/27/21) chlorhexidine (Verified Adverse Reaction, Mild, RASH, 06/27/21) EARLE GARCIA MD Aug 11, 2021 21:50
[2021-08-11] MEDS: cefTRIAXone SOD 1 GM in D5W MINI-BAG PLUS 50 ML IV SCH (23:41)
[2021-08-12] VITALS: BP 115/72
[2021-08-12] MEDS: IPRATROPIUM 0.5MG/ALBUTEROL 2.5MG INH SOL UD 3ML (DUONEB) NEB SCH ×4 (02:15→19:12)
[2021-08-12 04:00] VITALS: BP 138/70
[2021-08-12 05:01] LABS: BASO # 0.1 10^3/uL (0.0-0.2); BASO % 0.9 % (0.0-1.0); EOS # 0.2 10^3/uL (0.0-0.5); EOS % 1.5 % (0.0-3.0); HEMATOCRIT 25.6 % (36.0-47.0); HEMOGLOBIN 8.2 g/dl (12.0-15.5); LYMPH # 2.6 10^3/uL (1.5-5.0); MEAN CORPUSCULAR HEMOGLOBIN 32.2 pg (27.0-33.0); MEAN CORPUSCULAR VOLUME 100.4 fl (80.0-96.0); MONO # 1.2 10^3/uL (0.0-0.8); MONO % 11.9 % (2.0-8.0); NEUTROPHILS # 5.7 10^3/uL (1.5-8.5); NEUTROPHILS % 58.3 % (36.0-66.0); PLATELET COUNT, AUTOMATED 324 10^3/uL (150-450); RED BLOOD COUNT 2.55 10^6/uL (4.00-5.40); WHITE BLOOD COUNT 9.7 10^3/uL (4.0-10.0)
[2021-08-12 05:43] LABS: ALBUMIN 2.7 GM/DL (3.2-5.2); ALT/SGPT 36 U/L (12-78); BILIRUBIN,TOTAL 0.2 MG/DL (0.2-1.0); BLOOD UREA NITROGEN 8 MG/DL (7-18); CALCIUM LEVEL 8.8 MG/DL (8.5-10.1); CARBON DIOXIDE LEVEL 31 MEQ/L (21-32); CHLORIDE LEVEL 107 MEQ/L (98-107); CHOLESTEROL LEVEL 183 MG/DL (< 200); CPK CREATINE PHOSPHOKINASE 1665 U/L (26-192); CREATININE FOR GFR 0.58 MG/DL (0.55-1.30); GLOMERULAR FILTRATION RATE > 60.0 (>51); GLUCOSE, FASTING 88 MG/DL (70-100); LDH LACTATE DEHYDROGENASE 192 U/L (84-246); PHOSPHORUS LEVEL 3.6 MG/DL (2.5-4.9); SODIUM LEVEL 143 MEQ/L (136-145); TRIGLYCERIDES LEVEL 186 MG/DL (<150)
[2021-08-12] MEDS: HEPARIN SOD (PORCINE) 5000UNITS/ML 1ML VIAL/SYRINGE SC SCH ×3 (05:53→21:12)
[2021-08-12] MEDS: ADVAIR HFA 230/21MCG INHALER INH SCH ×2 (07:31→19:12)
[2021-08-12 08:00] VITALS: BP 136/72
[2021-08-12] MEDS: PANTOPRAZOLE 40MG TAB (PROTONIX) PO SCH (08:28)
[2021-08-12] MEDS: CLOPIDOGREL 75 MG TAB PO SCH (08:29)
[2021-08-12] MEDS: ASPIRIN 81MG ENTERIC TABLET PO SCH (08:29)
[2021-08-12] MEDS: FERROUS SULFATE 325MG TAB PO SCH ×2 (08:29→21:09)
[2021-08-12] MEDS: AMITRIPTYLINE 25MG TABLET PO SCH (08:29)
--- NOTE | 2021-08-12 09:52 | IPNPDOC ---
Text Note Date of Service The patient was seen on 08/12/21. NOTE Subjective: Patient is a 56-year-old female with a PMHx Asthma / COPD, Hx of Tobacco abuse, Bipolar disorder, of who presented to the ER the EMS after she was found unresponsive at home by her . Story was noted to ER provider who has collected the information from her . She was noted to have been last seen well at 530AM on 08/09. Her came from work, who said that they usually take a nap but was breathing irregularly. EMS was called and patient was given Narcan in the field without any response. She was taken to the ER for further evaluation. In the ER, there is a concern to protect her airway, so she was intubated. Patient received a CT scan of her head, chest, abdomen and pelvis, all of which was unremarkable. Lab work did reveal evidence of a leukocytosis and elevated creatinine and lactic acidosis. Toxicology was positive for benzodiazepines; this is a reported home medication. Patient remained in the ICU for approximately 24 hours and was subsequently extubated 08/10 afternoon. Hospitalist service was contacted to assume her care. Patient was seen and examined at the bedside. Currently patient denies any chest pain, shortness of breath or palpitations. Still reports a mild nonproductive cough. Denies any nausea, vomiting, abdominal pain or diarrhea. Patient has had a Shannon catheter removed. Currently, her mentation appears to be improving. Objective: Vitals (See below) General: Patient is lying in bed, appears to be comfortable, not in any acute distress. She is awake, alert, oriented 3 HEENT: AT, NC CVS: +S1S2 Lungs: Fair air entry bilaterally without any evidence of wheezing, crackles or rhonchi Abdomen: Nondistended and nontender, Soft Extremities: No edema Imaging: CT head 08/09: Negative noncontrast head CT. Alli tracheal and alli esophageal tubes noted on demo specialist view. CXR 08/09: Endotracheal tube tip approximately 4.5 cm above the kilo. Nasogastric tube side port in the distal esophagus, approximately 5 cm proximal to the gastroesophageal junction. Subsegmental atelectasis right lung base. CT Chest 08/09: Bibasilar atelectatic changes, right greater than left. Endotracheal tube tip 3 cm above the kilo. Nasogastric tube side port is approximately 5 cm proximal to the gastroesophageal junction. CT abdomen / pelvis 08/09: The previously noted colonic mural thickening is improved. No evidence of free air, abscess or abnormal fluid collection. Shannon catheter in place. NG tube terminates in the distal esophagus. There are very small amounts of pleural fluid in each posterior gutter. There is bibasilar discoid atelectasis which is new. CXR 08/09: Bibasilar atelectatic change. Endotracheal tube tip 4.9 cm above the kilo. Distal end of nasogastric tube is not visualized, and is deep within the stomach. CXR 08/10: No change from yesterday at 6 p.m. CXR 08/11: 1. Improved aeration of the lungs. 2. The endotracheal tube and nasogastric tubes have been removed. Assessment and plan: Suicidal ideation? - Yesterday, 08/11, patient reported that she had consumed several pills of Xanax, zolpidem and Keppra - She denies any attempt to harm herself. However, when questioned about why she had consumed several medications she said, "I don't know" - Continue with suicidal precautions and one-to-one observation - Psychiatry was consulted yesterday 08/11; appreciate Dr. Patel's input - Will transition imaging once bed becomes available Rhabdomyolysis - CK trending down - No evidence of kidney injury - s/p IV fluid hydration s/p Leukocytosis - etiology unclear, possibly 2/2 reactive etiology - ROS negative - She remains hemodynamically stable without any fevers noted - Respiratory panel 08/09: Negative - Blood cultures 08/09: No growth at 48 hours - Sputum cultures 08/09: Gram positive cocci in pair / chains / clusters, Few gram positive rods - UA negative - c/w Ceftriaxone (Day #4); s/p Cefepime and Vancomycin (Single dose in ER) s/p Toxic encephalopathy - possibly 2/2 medications? - AAOx3, no focal deficits - Imaging noted above - Will continue to hold Alprazolam / Melatonin / Zolpidem s/p Acute ventilator dependent respiratory failure - Currently does not have any evidence of respiratory compromise - Auscultation is clear - Patient was intubated on 08/09 in the ER for airway protection - Patient was extubated on 08/10 afternoon - ABGs noted s/p SAMANTHA - likely 2/2 pre-renal etiology - Cr has normalized s/p Lactic acidosis Macrocytic anemia - Hg has continued to have a decline overnight; however she has remained on IV fluid hydration - No evidence of bleeding - Stool for occult blood pending - Iron panel borderline low - B12 / Folate are adequate - Reticulocyte index 0.7; suggesting hypoproliferative - c/w Iron supplementation - Will continue to follow trend Asthma / COPD - No evidence of exacerbation - Takes Theophylline at home; currently on hold - c/w DuoNeb PRN - Will equivalent home regimen today PTSD / Bipolar disorder / Depression / Anxiety / Insomnia - Will continue to hold Lurasidone / Alprazolam / Melatonin / Zolpidem - c/w Keppra / Amitriptyline - Follows with Dr. Jackson, Psychiatrist as an outpatient - Psychiatry has been consulted (See above) HTN - BP well controlled without additional agents - Will continue to hold Lisinopril Vertebral artery stenosis - 06/2020; moderate to high grade stenosis at the origin of the vertebral artery bilaterally - Discussed whit Neurology; last saw patient on 07/25/2021 - c/w ASA / Plavix Hx of pituitary neoplasm - s/p resection 2001 or 2005 - No evidence of recurrence Chronic diarrhea? - No reported diarrhea currently - Will hold Cholestyramine / Loperamide for now Vitamin D deficiency - Will resume supplementation on discharge GERD - c/w Famotidine and Protonix DVT prophylaxis - c/w Heparin Disposition: - Awaiting clinical improvement - Will transition INHU once bed becomes available VS,Fishbone, I+O VS, Fishbone, I+O Laboratory Tests 08/12/21 04:39 Vital Signs Date Time Temp Pulse Resp B/P (MAP) Pulse Ox O2 Delivery O2 Flow Rate FiO2 08/12/21 08:00 98.0 108 18 136/72 (93) 91 Room Air 08/11/21 12:00 2.0 08/10/21 16:00 35 I&O- Last 24 Hours up to 6 AM 08/12/21 06:00 Intake Total 1690 ml Output Total 3525 ml Balance -1835 ml CLAIRE WEI MD Aug 12, 2021 09:52
[2021-08-12 12:00] VITALS: BP 127/83
[2021-08-12] MEDS: CEPACOL LOZENGE PO PRN ×2 (12:10→21:11)
[2021-08-12 16:00] VITALS: BP 119/76
[2021-08-12 20:00] VITALS: BP 123/73
[2021-08-12] MEDS: CEFDINIR 300 MG CAP (OMNICEF) PO SCH (21:08)
[2021-08-12] MEDS: DIVALPROEX 500MG *ER* TAB PO SCH (21:09)
[2021-08-12] MEDS: ACETAMINOPHEN 650MG ER TAB (TYLENOL ARTHRITIS) PO PRN (21:58)
[2021-08-13] MEDS: IPRATROPIUM 0.5MG/ALBUTEROL 2.5MG INH SOL UD 3ML (DUONEB) NEB SCH ×4 (00:48→20:00)
[2021-08-13] MEDS: CEPACOL LOZENGE PO PRN (02:59)
[2021-08-13 04:09] VITALS: BP 117/77
[2021-08-13 05:45] LABS: BASO # 0.1 10^3/uL (0.0-0.2); BASO % 0.9 % (0.0-1.0); EOS # 0.1 10^3/uL (0.0-0.5); EOS % 1.4 % (0.0-3.0); HEMATOCRIT 25.8 % (36.0-47.0); HEMOGLOBIN 8.5 g/dl (12.0-15.5); LYMPH # 2.5 10^3/uL (1.5-5.0); LYMPH % 26.9 % (24.0-44.0); MEAN CORPUSCULAR HEMOGLOBIN 32.1 pg (27.0-33.0); MEAN CORPUSCULAR HGB CONC 32.9 g/dl (32.0-36.5); MEAN CORPUSCULAR VOLUME 97.4 fl (80.0-96.0); MONO # 1.1 10^3/uL (0.0-0.8); MONO % 11.3 % (2.0-8.0); NEUTROPHILS # 5.5 10^3/uL (1.5-8.5); NEUTROPHILS % 58.9 % (36.0-66.0); PLATELET COUNT, AUTOMATED 344 10^3/uL (150-450); RED BLOOD COUNT 2.65 10^6/uL (4.00-5.40); WHITE BLOOD COUNT 9.3 10^3/uL (4.0-10.0)
[2021-08-13] MEDS: HEPARIN SOD (PORCINE) 5000UNITS/ML 1ML VIAL/SYRINGE SC SCH ×3 (05:46→21:03)
[2021-08-13 06:16] LABS: ALBUMIN 2.8 GM/DL (3.2-5.2); ALT/SGPT 33 U/L (12-78); BILIRUBIN,TOTAL 0.3 MG/DL (0.2-1.0); BLOOD UREA NITROGEN 10 MG/DL (7-18); CALCIUM LEVEL 9.1 MG/DL (8.5-10.1); CARBON DIOXIDE LEVEL 28 MEQ/L (21-32); CHLORIDE LEVEL 105 MEQ/L (98-107); CHOLESTEROL LEVEL 195 MG/DL (< 200); CPK CREATINE PHOSPHOKINASE 769 U/L (26-192); CREATININE FOR GFR 0.64 MG/DL (0.55-1.30); GLOMERULAR FILTRATION RATE > 60.0 (>51); GLUCOSE, FASTING 96 MG/DL (70-100); LDH LACTATE DEHYDROGENASE 179 U/L (84-246); PHOSPHORUS LEVEL 4.8 MG/DL (2.5-4.9); SODIUM LEVEL 139 MEQ/L (136-145); TRIGLYCERIDES LEVEL 179 MG/DL (<150)
[2021-08-13] MEDS ORDERED: MIRALAX *UNIT DOSE* 17GM PACKET PO PRN (07:15)
[2021-08-13 07:35] VITALS: BP 126/76
[2021-08-13] MEDS: ADVAIR HFA 230/21MCG INHALER INH SCH ×2 (07:42→20:00)
[2021-08-13] MEDS: CLOPIDOGREL 75 MG TAB PO SCH (08:54)
[2021-08-13] MEDS: ASPIRIN 81MG ENTERIC TABLET PO SCH (08:54)
[2021-08-13] MEDS: AMITRIPTYLINE 25MG TABLET PO SCH (08:54)
[2021-08-13] MEDS: PANTOPRAZOLE 40MG TAB (PROTONIX) PO SCH (08:54)
[2021-08-13] MEDS: FERROUS SULFATE 325MG TAB PO SCH ×2 (08:54→21:01)
[2021-08-13] MEDS: CEFDINIR 300 MG CAP (OMNICEF) PO SCH ×2 (08:54→21:01)
[2021-08-13] MEDS ORDERED: CEFD300CAP PO (10:32)
[2021-08-13] MEDS ORDERED: FERR1TAB8 PO (10:32)
--- NOTE | 2021-08-13 14:25 | DS.PDOC ---
Discharge Summary General Date of Admission Aug 09, 2021 at 19:01 Date of Discharge 08/13/2021 Discharge Summary PROCEDURES PERFORMED DURING STAY: Intubation in the ER on 08/[address] Pereira Insertion of triple lumen central venous catheter on 08/[address] Pereira ADMITTING DIAGNOSES / DISCHARGE DIAGNOSES: Suicidal ideation Rhabdomyolysis s/p Leukocytosis - etiology unclear, possibly 2/2 reactive etiology s/p Toxic encephalopathy - possibly 2/2 medications? s/p Acute ventilator dependent respiratory failure s/p SAMANTHA - likely 2/2 pre-renal etiology s/p Lactic acidosis Macrocytic anemia Asthma / COPD PTSD / Bipolar disorder / Depression / Anxiety / Insomnia HTN Vertebral artery stenosis Hx of pituitary neoplasm Chronic diarrhea? Vitamin D deficiency GERD DVT prophylaxis COMPLICATIONS/CHIEF COMPLAINT: Unresponsive HISTORY OF PRESENT ILLNESS: Patient is a 56-year-old female with a PMHx Asthma / COPD, Hx of Tobacco abuse, Bipolar disorder, of who presented to the ER the EMS after she was found unresponsive at home by her . Story was noted to ER provider who has collected the information from her . She was noted to have been last seen well at 530AM on 08/09. Her came from work, who said that they usually take a nap but was breathing irregularly. EMS was called and patient was given Narcan in the field without any response. She was taken to the ER for further evaluation. In the ER, there is a concern to protect her airway, so she was intubated. Patient received a CT scan of her head, chest, abdomen and pelvis, all of which was unremarkable. Lab work did reveal evidence of a leukocytosis and elevated creatinine and lactic acidosis. Toxicology was positive for benzodiazepines; this is a reported home medication. Patient remained in the ICU for approximately 24 hours and was subsequently extubated 08/10 afternoon. Hospitalist service was contacted to assume her care. On 08/11 patient had reported that she had consumed several bottles of Xanax, Zolpidem and Amitriptyline before she had taken a nap. Patient was seen and examined at the bedside this morning. Denies any chest pain, shortness breath, palpitations, nausea, vomiting, abdominal pain or diarrhea. Denies any urinary discomfort. HOSPITAL COURSE: Suicidal ideation - Yesterday, 08/11, patient reported that she had consumed several pills of Xanax, zolpidem and Amitriptyline; this has been verified by her who was found several empty bottles in the trash can - She denies any attempt to harm herself; when questioned about why she had consumed several medications she said, "I don't know" - c/w suicidal precautions and one-to-one observation - Psychiatry was consulted yesterday 08/11; appreciate Dr. Patel's input - Patient will be transitioned inpatient mental health unit under the care of psychiatry today Rhabdomyolysis - CK continues to trend down - No evidence of kidney injury - s/p IV fluid hydration s/p Leukocytosis - etiology unclear, possibly 2/2 reactive etiology - ROS negative - Hemodynamically stable without any fevers noted - Respiratory panel 08/09: Negative - Blood cultures 08/09: No growth at 72 hours - Sputum cultures 08/09: Gram positive cocci in pair / chains / clusters, Few gram positive rods - UA negative - c/w Cefdinir; s/p Ceftriaxone (Antibiotic day #5); s/p Cefepime and Vancomycin (Single dose in ER) - will complete antibiotic course as an outpatient s/p Toxic encephalopathy - possibly 2/2 medications? - AAOx3, no focal deficits - Imaging noted above - Will continue to hold Alprazolam / Melatonin / Zolpidem on transfer to [facility] s/p Acute ventilator dependent respiratory failure - Currently does not have any evidence of respiratory compromise - Auscultation remains without any adventitious lung sounds - Patient was intubated on 08/09 in the ER for airway protection - Patient was extubated on 08/10 afternoon - ABGs noted s/p SAMANTHA - likely 2/2 pre-renal etiology - Cr has normalized s/p Lactic acidosis Macrocytic anemia - Hg has remained stable - No evidence of bleeding - Stool for occult blood pending - Iron panel borderline low - B12 / Folate are adequate - Reticulocyte index 0.7; suggesting hypoproliferative - c/w Iron supplementation Asthma / COPD - No evidence of exacerbation - Takes Theophylline at home; currently on hold - c/w inhaled therapy as ordered PTSD / Bipolar disorder / Depression / Anxiety / Insomnia - Will continue to hold Lurasidone / Alprazolam / Melatonin / Zolpidem - c/w Keppra / Amitriptyline - Follows with Dr. Jackson, Psychiatrist as an outpatient - Psychiatry has been consulted (See above) HTN - BP well controlled without additional agents - Will continue to hold Lisinopril Vertebral artery stenosis - 06/2020; moderate to high grade stenosis at the origin of the vertebral artery bilaterally - Discussed whit Neurology; last saw patient on 07/25/2021 - c/w ASA / Plavix Hx of pituitary neoplasm - s/p resection 2001 or 2005 - No evidence of recurrence Chronic diarrhea? - No reported diarrhea currently - Will hold Cholestyramine / Loperamide for now Vitamin D deficiency - c/w supplementation on discharge GERD - c/w Famotidine and Protonix DVT prophylaxis - c/w Heparin DISCHARGE MEDICATIONS: Please see below. ALLERGIES: Please see below. PHYSICAL EXAMINATION ON DISCHARGE: Vitals (See below) General: Patient sitting up in bed, appears to be comfortable. She is awake, alert, oriented to person, place and time HEENT: Normocephalic and atraumatic CVS: +S1S2 Lungs: Air entry appears to be fair bilaterally without any evidence of crackles, wheezing or rhonchi Abdomen: Her abdomen remains soft without any distention or tenderness Extremities: Lower extremities are without any pitting edema LABORATORY DATA: Please see below. IMAGING: CT head 08/09: Negative noncontrast head CT. Alli tracheal and alli esophageal tubes noted on model dresser view. CXR 08/09: Endotracheal tube tip approximately 4.5 cm above the kilo. Nasogastric tube side port in the distal esophagus, approximately 5 cm proximal to the gastroesophageal junction. Subsegmental atelectasis right lung base. CT Chest 08/09: Bibasilar atelectatic changes, right greater than left. Endotracheal tube tip 3 cm above the kilo. Nasogastric tube side port is approximately 5 cm proximal to the gastroesophageal junction. CT abdomen / pelvis 08/09: The previously noted colonic mural thickening is improved. No evidence of free air, abscess or abnormal fluid collection. Shannon catheter in place. NG tube terminates in the distal esophagus. There are very small amounts of pleural fluid in each posterior gutter. There is bibasilar discoid atelectasis which is new. CXR 08/09: Bibasilar atelectatic change. Endotracheal tube tip 4.9 cm above the kilo. Distal end of nasogastric tube is not visualized, and is deep within the stomach. CXR 08/10: No change from yesterday at 6 p.m. CXR 08/11: 1. Improved aeration of the lungs. 2. The endotracheal tube and nasogastric tubes have been removed. ACTIVITY: [As tolerated]. DISCHARGE PLAN: Follow-up with psychiatrist in the inpatient mental health unit on transfer Remain compliant with treatment plan and medications Return to the ER if you experience any problems DISPOSITION: Inpatient mental health unit DISCHARGE CONDITION: [Stable]. TIME SPENT ON DISCHARGE: 35 minutes. Vital Signs/I&Os Vital Signs Date Time Temp Pulse Resp B/P (MAP) Pulse Ox O2 Delivery O2 Flow Rate FiO2 08/13/21 07:35 98.6 107 18 126/76 (93) 95 Room Air 08/11/21 12:00 2.0 08/10/21 16:00 35 I&O- Last 24 Hours up to 6 AM 08/13/21 06:00 Intake Total 3300 ml Output Total 1725 ml Balance 1575 ml Laboratory Data Labs 24H Laboratory Tests 2 08/13/21 05:02: Immature Granulocyte % (Auto) 0.6, Neutrophils (%) (Auto) 58.9, Lymphocytes (%) (Auto) 26.9, Monocytes (%) (Auto) 11.3H, Eosinophils (%) (Auto) 1.4, Basophils (%) (Auto) 0.9, Neutrophils # (Auto) 5.5, Lymphocytes # (Auto) 2.5, Monocytes # (Auto) 1.1H, Eosinophils # (Auto) 0.1, Basophils # (Auto) 0.1, Nucleated Red Blood Cells % (auto) 0.0, Anion Gap 6L, Glomerular Filtration Rate > 60.0, Calcium Level 9.1, Phosphorus Level 4.8#, Total Bilirubin 0.3, Aspartate Amino Transf (AST/SGOT) 47H, Alanine Aminotransferase (ALT/SGPT) 33, Alkaline Phosphatase 86, Lactate Dehydrogenase 179, Total Creatine Kinase 769H, Total Protein 6.0L, Albumin 2.8L, Albumin/Globulin Ratio 0.9L, Triglycerides Level 179H, Cholesterol Level 195 CBC/BMP Laboratory Tests 08/13/21 05:02 Microbiology Microbiology 08/09/21 Gram Stain - Final, Complete 08/09/21 Sputum Culture - Final, Complete 08/09/21 Blood Culture - Preliminary, Resulted No Growth after 72 hours. All specime... 08/09/21 Blood Culture - Preliminary, Resulted No Growth after 72 hours. All specime... Discharge Medications Scheduled Amitriptyline HCl (Amitriptyline HCl) 75 Mg Tablet, 75 MG PO DAILY, (Reported) Aspirin (Ecotrin) 81 Mg Tablet.dr, 81 MG PO DAILY, (Reported) Cefdinir (Cefdinir) 300 Mg Capsule, 300 MG PO BID Cholestyramine (Cholestyramine Packet) 4 Gm Pow, 8 GM PO DAILY, (Reported) Clopidogrel Bisulfate (Plavix) 75 Mg Tablet, 75 MG PO DAILY, (Reported) Divalproex Sodium (Divalproex Sodium ER) 500 Mg Tab.er.24h, 1,000 MG PO QHS, (Reported) Dm/Acetaminophen/Doxylamine (Night Time Cold-Flu Liquid) 355 Ml Liquid, 30 ML PO QHS, (Reported) Ergocalciferol (Vitamin D2) (Vitamin D2) 50,000 Units Cap, 50,000 UNITS PO QWEEK, (Reported) Ferrous Sulfate (Ferrous Sulfate) 325 Mg Tablet, 325 MG PO BID Fluticasone Furoate (Arnuity Ellipta) 200 Mcg/Act Inh, 1 PUFF INH DAILY, (Reported) Lisinopril (Lisinopril) 20 Mg Tablet, 20 MG PO DAILY, (Reported) Lurasidone HCl (Latuda) 80 Mg Tablet, 80 MG PO QHS, (Reported) Melatonin (Melatonin) 10 Mg Tablet, 10 MG PO QHS, (Reported) Pantoprazole Sodium (Pantoprazole Sodium) 40 Mg Tablet.dr, 40 MG PO DAILY, (Reported) Theophylline Anhydrous (Theophylline) 400 Mg Tab.er.24h, 400 MG PO BID, (Reported) Umeclidinium Brm/Vilanterol Tr (Anoro Ellipta 62.5-25 Mcg INH) 1 Aer Aer, 1 PUFF INH DAILY, (Reported) Zolpidem Tartrate (Zolpidem Tartrate ER) 6.25 Mg Tab.mphase, 6.25 MG PO QHS, (Reported) Scheduled PRN Acetaminophen (Acetaminophen) 500 Mg Tablet, 500 MG PO Q6H PRN for HEADACHE, (Reported) Albuterol Sulfate (Ventolin Hfa) 18 Gm Hfa.aer.ad, 2 PUFF INH Q4-6HP PRN for SOB/WHEEZING, (Reported) Alprazolam (Xanax) 1 Mg Tablet, 1 MG PO TID PRN for ANXIETY, (Reported) Famotidine (Famotidine) 40 Mg Tablet, 40 MG PO DAILY PRN for HEARTBURN, (Reported) Ibuprofen (Ibu) 800 Mg Tablet, 800 MG PO TID PRN for PAIN LEVEL 1-4, (Reported) Loperamide HCl (Loperamide) 2 Mg Capsule, 2 MG PO Q4H PRN for DIARRHEA, (Reported) Ubrogepant (Ubrelvy) 100 Mg Tablet, 100 MG PO Q2H PRN for HEADACHE, (Reported) Allergies Coded Allergies: diazepam (Verified Allergy, Severe, ONLY WITH VALIUM-CAUSES ANGIOEDEMA, 06/27/21) iodine (Verified Allergy, Intermediate, HIVES, 06/27/21) latex (Unverified Allergy, Unknown, 06/27/21) cocoa (Verified Adverse Reaction, Intermediate, CHOCOLATE - MIGRAINES, 06/27/21) chlorhexidine (Verified Adverse Reaction, Mild, RASH, 06/27/21) CLAIRE WEI MD Aug 13, 2021 14:25
[2021-08-13] MEDS: ACETAMINOPHEN 650MG ER TAB (TYLENOL ARTHRITIS) PO PRN (14:44)
[2021-08-13 15:16] VITALS: BP 135/89
[2021-08-13 20:00] VITALS: BP 113/63
[2021-08-13] MEDS: DIVALPROEX 500MG *ER* TAB PO SCH (21:02)
== END 2021-08-13 22:34 | DRG 917 ==
LOC: EDBD 12:58 → M ED 12:58 → M ED INP 19:01 → ENRESERV 20:21 → M ICU 21:56 → M PCU 08-11 13:30
PROVIDERS: ADMIT Internal Medicine Pulmonary Disease; ATTEND Internal Medicine
PROC: 06HM33Z Insertion of Infusion Device into Right Femoral Vein, Percutaneous Approach (ICD-10-PCS; principal; 2021-08-09)
PROC: 0BH17EZ Insertion of Endotracheal Airway into Trachea, Via Natural or Artificial Opening (ICD-10-PCS; 2021-08-09)
PROC: 5A1945Z Respiratory Ventilation, 24-96 Consecutive Hours (ICD-10-PCS; 2021-08-09)
DX: T42.4X4A Poisoning by benzodiazepines, undetermined, initial encounter (principal); G92 Toxic encephalopathy; J96.00 Acute respiratory failure, unspecified whether with hypoxia or hypercapnia; N17.9 Acute kidney failure, unspecified; E87.2 Acidosis; M62.82 Rhabdomyolysis; R41.82 Altered mental status, unspecified; D53.9 Nutritional anemia, unspecified; J45.909 Unspecified asthma, uncomplicated; F17.200 Nicotine dependence, unspecified, uncomplicated; F31.9 Bipolar disorder, unspecified; J44.9 Chronic obstructive pulmonary disease, unspecified; F41.9 Anxiety disorder, unspecified; F43.10 Post-traumatic stress disorder, unspecified; G47.00 Insomnia, unspecified; I10 Essential (primary) hypertension; E55.9 Vitamin D deficiency, unspecified; I67.2 Cerebral atherosclerosis; K21.9 Gastro-esophageal reflux disease without esophagitis; Z79.02 Long term (current) use of antithrombotics/antiplatelets; Z79.899 Other long term (current) drug therapy

== ENCOUNTER 2021-08-13 13:31 | Inpatient (IN) | payer MEDICARE ==
[~2021-08-13 13:31] MED LIST changes: +ACET500T15 PO; +CEFD300CAP PO; +FERR1TAB8 PO; +GNPLIQ60 PO; +IBUP-359 PO; +RA M10TA PO
[2021-08-13] MEDS ORDERED: MOM 30ML SUSPENSION UDC PO PRN (16:10)
[2021-08-13] MEDS ORDERED: MAALOX 30 ML SUSP *UDC PO PRN (16:10)
[2021-08-13] MEDS ORDERED: HOME MED LIST COMPLETE! XX SCH (16:15)
[2021-08-13] MEDS ORDERED: SENNA 8.6 MG TAB (SENOKOT) PO PRN (16:35)
[2021-08-13] MEDS ORDERED: FAMOTIDINE 20 MG TAB PO PRN (16:35)
[2021-08-13 21:32] VITALS: BP 166/103
[2021-08-13] MEDS: FERROUS SULFATE 325MG TAB PO SCH (22:25)
[2021-08-13] MEDS: DIVALPROEX 500MG *ER* TAB PO SCH (22:25)
[2021-08-13] MEDS: ADVAIR HFA 230/21MCG INHALER INH SCH (22:25)
[2021-08-13] MEDS: CEFDINIR 300 MG CAP (OMNICEF) PO SCH (22:34)
[2021-08-13] MEDS: traZODone 50 MG TAB PO PRN (22:34)
[2021-08-14 05:54] VITALS: BP 118/61
[2021-08-14] MEDS: ASPIRIN 81MG ENTERIC TABLET PO SCH (08:06)
[2021-08-14] MEDS: ADVAIR HFA 230/21MCG INHALER INH SCH ×2 (08:06→21:21)
[2021-08-14] MEDS: CEFDINIR 300 MG CAP (OMNICEF) PO SCH ×2 (08:07→21:23)
[2021-08-14] MEDS: FERROUS SULFATE 325MG TAB PO SCH ×2 (08:07→21:23)
[2021-08-14] MEDS: CLOPIDOGREL 75 MG TAB PO SCH (08:07)
[2021-08-14] MEDS ORDERED: PANTOPRAZOLE 40MG TAB (PROTONIX) PO SCH (09:00)
[2021-08-14] MEDS ORDERED: AMITRIPTYLINE 25MG TABLET PO SCH (09:00)
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
[2021-08-14 16:07] VITALS: BP 113/78
[2021-08-14] MEDS: SUCRALFATE SUSP 1GM/10ML UD PO SCH ×2 (16:57→21:23)
--- NOTE | 2021-08-14 18:29 | HPEPDOC ---
[facility] Medical History & Physical Date of Admission Aug 13, 2021 Date of Service: Aug 14, 2021 History and Physical CHIEF COMPLAINT: Depression HISTORY OF PRESENT ILLNESS: 56-year-old female admitted to the inpatient mental health unit due to severe depression and suicide ideation. Patient was admitted to the medical floor August 09 for suicidal ideation rhabdomyolysis medication induced encephalopathy acute kidney injury lactic acidosis and required intubation mechanical ventilation due to altered mental status to protect her airway. Toxicology screen was positive for benzodiazepine patient was extubated 08/10/2021. She was treated with IV fluids for rhabdomyolysis with decrease in total CK due to leukocytosis infectious work-up was undertaken she was given cefdinir after taking ceftriaxone and empirically being treated with cefepime and vancomycin in the ER. she currently complains of scratchy throat without fever chills or cough. She otherwise denies weight gain weight loss changes in appetite changes in vision sleep habits. She complains of some constipation. No nausea vomiting diarrhea abdominal pain chest pain pressure tightness lightheadedness shortness of breath PND orthopnea dysuria urgency frequency flank pain muscle pain joint pains. 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 REVIEW OF SYSTEMS: 10 point review of systems negative aside from positive findings in HPI HOME MEDICATIONS: Please see below. PHYSICAL EXAMINATION: VITAL SIGNS: See below GENERAL APPEARANCE: No distress no use of respiratory accessory muscles anicteric no pallor or cyanosis HEENT: No stridor moist mucous membranes no JVD thyromegaly or cervical lymphadenopathy CARDIOVASCULAR: S1-S2 regular rate rhythm LUNGS: Clear to auscultation no wheezing or rales ABDOMEN: Obese soft nontender nondistended positive bowel sounds x4 quadrants EXTREMITIES: No cyanosis clubbing or pitting edema LABORATORY DATA: See below. ASSESSMENT: 56-year-old female with history of pituitary neoplasm resected vertebral artery stenosis hypertension PTSD bipolar disorder depression anxiety insomnia asthma COPD macrocytic anemia lactic acidosis status post acute kidney injury toxic encephalopathy due to medication status post intubation mechanical ventilation because patient was unable to protect her airway when she presented with altered mental status, vitamin D deficiency reflux chronic diarrhea admitted to the inpatient mental health unit for severe depression and suicide ideation Depression/suicidal ideation with history of PTSD bipolar disorder anxiety-managed by primary psychiatric team Vertebral artery stenosis-06/2020 moderate to high-grade stenosis bilaterally seen by neurology 07/25/2021 continued on aspirin and Plavix Anemia-B12 folate were normal continue iron supplementation no acute indication for RBC transfusion hypertension-controlled History of pituitary neoplasm status post resection no recurrence Vitamin D deficiency continue with supplementation Gastroesophageal reflux disease on famotidine and Protonix Hospitalist will sign off please reconsult for any new acute medical issues Vital Signs Vital Signs Date Time Temp Pulse Resp B/P (MAP) Pulse Ox O2 Delivery O2 Flow Rate FiO2 08/14/21 16:07 97.8 100 18 113/78 (90) 99 Room Air Home Medications Scheduled Amitriptyline HCl (Amitriptyline HCl) 75 Mg Tablet, 75 MG PO DAILY Aspirin (Ecotrin) 81 Mg Tablet.dr, 81 MG PO DAILY Cefdinir (Cefdinir) 300 Mg Capsule, 300 MG PO BID Clopidogrel Bisulfate (Plavix) 75 Mg Tablet, 75 MG PO DAILY Divalproex Sodium (Divalproex Sodium ER) 500 Mg Tab.er.24h, 1,000 MG PO QHS Ergocalciferol (Vitamin D2) (Vitamin D2) 50,000 Units Cap, 50,000 UNITS PO QWEEK Ferrous Sulfate (Ferrous Sulfate) 325 Mg Tablet, 325 MG PO BID Fluticasone Furoate (Arnuity Ellipta) 200 Mcg/Act Inh, 1 PUFF INH DAILY Pantoprazole Sodium (Pantoprazole Sodium) 40 Mg Tablet.dr, 40 MG PO DAILY Umeclidinium Brm/Vilanterol Tr (Anoro Ellipta 62.5-25 Mcg INH) 1 Aer Aer, 1 PUFF INH DAILY Scheduled PRN Acetaminophen (Acetaminophen) 500 Mg Tablet, 500 MG PO Q6H PRN for HEADACHE Albuterol Sulfate (Ventolin Hfa) 18 Gm Hfa.aer.ad, 2 PUFF INH Q4-6HP PRN for SOB/WHEEZING Famotidine (Famotidine) 40 Mg Tablet, 40 MG PO DAILY PRN for HEARTBURN Ubrogepant (Ubrelvy) 100 Mg Tablet, 100 MG PO Q2H PRN for HEADACHE Allergies Coded Allergies: diazepam (Verified Allergy, Severe, ONLY WITH VALIUM-CAUSES ANGIOEDEMA, 06/27/21) iodine (Verified Allergy, Intermediate, HIVES, 06/27/21) latex (Unverified Allergy, Unknown, 06/27/21) cocoa (Verified Adverse Reaction, Intermediate, CHOCOLATE - MIGRAINES, 06/27/21) chlorhexidine (Verified Adverse Reaction, Mild, RASH, 06/27/21) A-FIB/CHADSVASC A-FIB History Current/History of A-Fib/PAF?: No Current PO Anticoag Therapy: No Age/Risk Factor Scoring CHADSVASC: CHADSVASC Response (Comments) Value Age Risk Factor Age < 65 years old 0 Gender Risk Factor Female 1 Hx of CHF No 0 Hx of HTN Yes 1 Hx of Stroke/TIA/or VTE No 0 Hx of Diabetes No 0 Hx of Vascular Disease No 0 Total 2 Treatment Treatment ordered: NONE MARIA GUADALUPE CERRATO MD Aug 14, 2021 18:28
[2021-08-14] MEDS ORDERED: CEPACOL LOZENGE PO ONE (18:30)
[2021-08-14] MEDS ORDERED: CHLORASEPTIC SPRAY MT ONE (18:30)
[2021-08-14] MEDS ORDERED: MOM 30ML SUSPENSION UDC PO ONE (18:30)
[2021-08-14] MEDS ORDERED: SENOKOT S TAB PO ONE (18:30)
[2021-08-14] MEDS ORDERED: CEPACOL LOZENGE PO PRN (18:30)
[2021-08-14] MEDS: THEOPHYLLINE (THEO-24) 100MG SR **CAPSULE PO SCH (21:21)
[2021-08-14] MEDS: ALPRAZolam 0.5 MG TAB PO SCH (21:21)
[2021-08-14] MEDS: DIVALPROEX 500MG *ER* TAB PO SCH (21:22)
[2021-08-14] MEDS: PANTOPRAZOLE 40MG TAB (PROTONIX) PO SCH (21:23)
[2021-08-14] MEDS: LURASIDONE HCL 40 MG TAB (LATUDA) PO SCH (21:24)
[2021-08-15] MEDS: CEPACOL LOZENGE PO PRN (05:41)
[2021-08-15] MEDS ORDERED: CHOLESTYRAMINE 4 GM PWD PKT PO SCH (06:00)
[2021-08-15] MEDS: SUCRALFATE SUSP 1GM/10ML UD PO SCH ×4 (06:39→21:42)
[2021-08-15 06:50] VITALS: BP 111/62
[2021-08-15] MEDS: ASPIRIN 81MG ENTERIC TABLET PO SCH (08:02)
[2021-08-15] MEDS: LURASIDONE HCL 40 MG TAB (LATUDA) PO SCH (08:02)
[2021-08-15] MEDS: ADVAIR HFA 230/21MCG INHALER INH SCH ×2 (08:02→21:42)
[2021-08-15] MEDS: CEFDINIR 300 MG CAP (OMNICEF) PO SCH ×2 (08:02→21:51)
[2021-08-15] MEDS: ALPRAZolam 0.5 MG TAB PO SCH ×2 (08:02→21:42)
[2021-08-15] MEDS: CLOPIDOGREL 75 MG TAB PO SCH (08:02)
[2021-08-15] MEDS: FERROUS SULFATE 325MG TAB PO SCH ×2 (08:02→21:43)
[2021-08-15] MEDS: THEOPHYLLINE (THEO-24) 100MG SR **CAPSULE PO SCH ×2 (08:03→21:51)
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
[2021-08-15] MEDS: CHOLESTYRAMINE 4 GM PWD PKT PO SCH (14:12)
[2021-08-15 16:15] VITALS: BP 130/90
[2021-08-15] MEDS: AMITRIPTYLINE 25MG TABLET PO SCH (21:42)
[2021-08-15] MEDS: DIVALPROEX 500MG *ER* TAB PO SCH (21:43)
[2021-08-15] MEDS: traZODone 50 MG TAB PO PRN (21:43)
[2021-08-15] MEDS: PANTOPRAZOLE 40MG TAB (PROTONIX) PO SCH (21:45)
[2021-08-15] MEDS: ACETAMINOPHEN TAB 650MG DOSE (2X325MG) PO PRN (21:49)
[2021-08-16 07:03] VITALS: BP 124/73
[2021-08-16] MEDS: THEOPHYLLINE (THEO-24) 100MG SR **CAPSULE PO SCH ×2 (08:05→20:42)
[2021-08-16] MEDS: SUCRALFATE SUSP 1GM/10ML UD PO SCH ×4 (08:05→20:43)
[2021-08-16] MEDS: ADVAIR HFA 230/21MCG INHALER INH SCH ×2 (08:06→20:43)
[2021-08-16] MEDS: ASPIRIN 81MG ENTERIC TABLET PO SCH (08:06)
[2021-08-16] MEDS: LURASIDONE HCL 40 MG TAB (LATUDA) PO SCH (08:06)
[2021-08-16] MEDS: CLOPIDOGREL 75 MG TAB PO SCH (08:06)
[2021-08-16] MEDS: CEFDINIR 300 MG CAP (OMNICEF) PO SCH ×2 (08:06→20:43)
[2021-08-16] MEDS: ALPRAZolam 0.5 MG TAB PO SCH ×2 (08:06→20:44)
[2021-08-16] MEDS: FERROUS SULFATE 325MG TAB PO SCH ×2 (08:06→20:43)
[2021-08-16] MEDS ORDERED: VITAMIN D 50,000 UNITS CAPSULE (ERGOCALCIFEROL 1.25MG) PO SCH (09:00)
[2021-08-16] MEDS: ACETAMINOPHEN TAB 650MG DOSE (2X325MG) PO PRN ×2 (10:16→20:43)
[2021-08-16] MEDS: CHOLESTYRAMINE 4 GM PWD PKT PO SCH (13:16)
--- NOTE | 2021-08-16 14:47 | MHIPNPDOC ---
[facility] Progress Note Progress Note DATE OF SERVICE: 08/16/21 HISTORY: Patient is a 56 -year-old , Retired, Domiciled, , female, who took an overdose of all of her medications as a suicide attempt. She states that she had been doing very well that morning but had become depressed by late morning. She reports a history of Bipolar I, with rapid cycling. She reports that her mother of COPD in March 2019, son committed suicide by gunshot in September 2019 (he had become depressed over the loss of his Grandmother) and she has been taking care of her father (age 79) for 2 years. He is disabled and on home oxygen. She states she was overwhelmed with everything. Reports that she had not planned it and that it was impulsive. She had had two other suicide attempts 8 and 15 years ago and both overdoses with hospitalizations. On this occasion she reports being very remorseful - "I am fine, I am taking ownership, made an insurmountable problem even more bad. I made my 's life Adonis miserable. He works, takes care of my dad, takes care of 6 dogs and trying to stay on top of the house, and I really feel badly that I put him in this position." She further reports that she is overwhelmed with the job of going through her father's belongings to get the house ready to sell. VITAL SIGNS: See below. NEW TEST RESULTS: None CURRENT MEDICATIONS: See below. MENTAL STATUS EXAMINATION: Patient is a 56 -year-old , Retired, Domiciled, , female, who took an overdose of all of her medications as a suicide attempts Speech: Is fluid, conversant, normal rate, tone and volume Language skills are intact Thought processes including: linear and goal oriented Thought content: denies depression and anxiety. Denies suicidal/homicidal ideation, planning or intent. Abstract reasoning, and computation: fair Description of associations: denies, none observed Description of abnormal or psychotic thoughts: denies, none observed. Judgment: fair Insight: good Orientation: alert and oriented to person, place, time and situation Recent and remote memory: intact Attention span and concentration: good Language: expansive Fund of knowledge: average Mood: Euthymic Mood Affect: reactive DIAGNOSES: Bipolar 1 disorder, current episode, depressed mood Generalized anxiety disorder Nicotine use disorder COPD Emphysema Asthma ASSESSMENT: Patient found sleeping in her room. She states that she has continued to journal and that has been helping her with her mood and depression. She reports a decrease in depression and anxiety. She denies any suicidal ideations planning or intent. She reports being very remorseful and embarrassed. She states that she has been communicating with her , sister, father and other family members. She reports that this has been very good for her and they are very supportive. Patient complains of a pulled muscle in her chest she states this is from coughing. Patient is reporting significant decrease in depression and anxiety, and I feel strongly that she is stable for discharge tomorrow MANAGEMENT PLAN: Continue all medications and supportive therapy. Will discharge patient tomorrow TIME SPENT: 25 minutes. Vital Signs Vital Signs Date Time Temp Pulse Resp B/P (MAP) Pulse Ox O2 Delivery O2 Flow Rate FiO2 08/16/21 07:03 98.0 112 16 124/73 (90) 97 Room Air Current Medications Current Medications Medications (Trade) Dose Ordered Sig/Khang Route PRN Reason Start Time Stop Time Status Last Admin Dose Admin Acetaminophen (Tylenol Tab) 650 mg Q6HP PRN PO HEADACHE or MILD DISCOMFORT 08/13/21 16:10 08/16/21 10:16 Al Hydrox/Mg Hydrox/Simethicone (Mylanta) 30 ml Q4HP PRN PO HEARTBURN/INDIGESTION 08/13/21 16:10 Alprazolam (Xanax) 1 mg BID PO 08/14/21 21:00 08/16/21 08:06 Amitriptyline HCl (Elavil) 75 mg DAILY PO 08/14/21 09:00 08/14/21 15:41 DC 08/14/21 08:07 Amitriptyline HCl (Elavil) 75 mg QHS PO 08/15/21 21:00 08/15/21 21:42 Aspirin (Ecotrin) 81 mg DAILY PO 08/14/21 09:00 08/16/21 08:06 Cefdinir (Omnicef) 300 mg BID PO 08/13/21 21:00 08/16/21 08:06 Cetylpyridinium Chloride (Cepacol) 1 gely Q4HP PRN PO SORE THROAT 08/13/21 16:35 08/15/21 05:41 Cetylpyridinium Chloride (Cepacol) 2 gely Q2HP PRN PO SORE THROAT 08/14/21 18:30 Cholestyramine Resin (Questran) 4 gm DAILY@1400 PO 08/15/21 14:00 08/15/21 14:12 Cholestyramine Resin (Questran) 4 gm QAM@0600 PO 08/15/21 06:00 08/15/21 06:03 DC Clopidogrel Bisulfate (PLAVix) 75 mg DAILY PO 08/14/21 09:00 08/16/21 08:06 Divalproex Sodium (Depakote Er) 1,000 mg QHS PO 08/13/21 21:00 08/15/21 21:43 Famotidine (Pepcid) 40 mg DAILY PRN PO HEARTBURN 08/13/21 16:35 Ferrous Sulfate (Ferrous Sulfate) 325 mg BID PO 08/13/21 21:00 08/16/21 08:06 Home Med (Home Med List Complete!) ASDIRECTED XX 08/13/21 16:15 08/13/21 21:36 DC Lisinopril (Prinivil) 20 mg QHS PO 08/14/21 21:00 08/15/21 21:45 Lurasidone HCl (Latuda) 40 mg DAILY@08 PO 08/14/21 21:00 08/16/21 08:06 Magnesium Hydroxide (Milk Of Magnesia) 30 ml DAILYPRN PRN PO CONSTIPATION 08/13/21 16:10 Pantoprazole Sodium (Protonix) 40 mg DAILY PO 08/14/21 09:00 08/14/21 15:41 DC 08/14/21 08:07 Pantoprazole Sodium (Protonix) 40 mg QHS PO 08/14/21 21:00 08/15/21 21:45 Salmeterol Xinafoate/ Fluticasone (Advair Hfa 230/ 21) 2 puff RBID INH 08/13/21 20:00 08/16/21 08:06 Senna (Senokot) 1 tab BIDP PRN PO CONSTIPATION 08/13/21 16:35 Sucralfate (Carafate Suspension) 1 gm ACHS PO 08/14/21 17:30 08/16/21 12:07 Theophylline (Vamsi-24) 400 mg BID PO 08/14/21 21:00 08/16/21 08:05 Trazodone HCl (Desyrel) 50 mg QHSP PRN PO INSOMNIA 08/13/21 16:10 08/15/21 21:43 Vitamin D (Drisdol) 50,000 units Th@09 PO 08/16/21 09:00 08/16/21 08:05 Allergies Coded Allergies: diazepam (Verified Allergy, Severe, ONLY WITH VALIUM-CAUSES ANGIOEDEMA, 06/27/21) iodine (Verified Allergy, Intermediate, HIVES, 06/27/21) latex (Unverified Allergy, Unknown, 06/27/21) cocoa (Verified Adverse Reaction, Intermediate, CHOCOLATE - MIGRAINES, 06/27/21) chlorhexidine (Verified Adverse Reaction, Mild, RASH, 06/27/21) JLUIS STINSON NP Aug 16, 2021 12:25
[2021-08-16 16:00] VITALS: BP 118/76
[2021-08-16] MEDS: DIVALPROEX 500MG *ER* TAB PO SCH (20:43)
[2021-08-16 20:44] VITALS: BP 118/76
[2021-08-16] MEDS: AMITRIPTYLINE 25MG TABLET PO SCH (20:44)
[2021-08-16] MEDS: traZODone 50 MG TAB PO PRN (20:44)
[2021-08-16] MEDS: PANTOPRAZOLE 40MG TAB (PROTONIX) PO SCH (20:44)
[2021-08-16] MEDS: CEPACOL LOZENGE PO PRN (21:16)
[2021-08-17 06:20] VITALS: BP 108/68
[2021-08-17] MEDS: SUCRALFATE SUSP 1GM/10ML UD PO SCH ×2 (06:40→11:58)
[2021-08-17] MEDS: ADVAIR HFA 230/21MCG INHALER INH SCH (08:09)
[2021-08-17] MEDS: CEFDINIR 300 MG CAP (OMNICEF) PO SCH (08:10)
[2021-08-17] MEDS: ALPRAZolam 0.5 MG TAB PO SCH (08:10)
[2021-08-17] MEDS: THEOPHYLLINE (THEO-24) 100MG SR **CAPSULE PO SCH (08:10)
[2021-08-17] MEDS: LURASIDONE HCL 40 MG TAB (LATUDA) PO SCH (08:10)
[2021-08-17] MEDS: ASPIRIN 81MG ENTERIC TABLET PO SCH (08:10)
[2021-08-17] MEDS: FERROUS SULFATE 325MG TAB PO SCH (08:10)
[2021-08-17] MEDS: CLOPIDOGREL 75 MG TAB PO SCH (08:11)
[2021-08-17] MEDS: ACETAMINOPHEN TAB 650MG DOSE (2X325MG) PO PRN (08:13)
[2021-08-17] MEDS ORDERED: THEO1CAP2 PO (09:17)
[2021-08-17] MEDS ORDERED: ALPR2TAB3 PO (09:17)
[2021-08-17] MEDS ORDERED: LATU20TA PO (09:17)
[2021-08-17] MEDS ORDERED: CHOL4PW PO (09:17)
[2021-08-17] MEDS ORDERED: ALPR0.5T3 PO (09:25)
[2021-08-17 10:07] LABS: BASO # 0.1 10^3/uL (0.0-0.2); BASO % 0.9 % (0.0-1.0); EOS # 0.1 10^3/uL (0.0-0.5); EOS % 0.8 % (0.0-3.0); HEMATOCRIT 28.1 % (36.0-47.0); HEMOGLOBIN 9.2 g/dl (12.0-15.5); LYMPH # 2.4 10^3/uL (1.5-5.0); LYMPH % 18.3 % (24.0-44.0); MEAN CORPUSCULAR HGB CONC 32.7 g/dl (32.0-36.5); MEAN CORPUSCULAR VOLUME 100.7 fl (80.0-96.0); MONO # 1.5 10^3/uL (0.0-0.8); MONO % 11.2 % (2.0-8.0); NEUTROPHILS # 8.8 10^3/uL (1.5-8.5); NEUTROPHILS % 67.8 % (36.0-66.0); PLATELET COUNT, AUTOMATED 402 10^3/uL (150-450); RED BLOOD COUNT 2.79 10^6/uL (4.00-5.40); WHITE BLOOD COUNT 12.9 10^3/uL (4.0-10.0)
[2021-08-17 10:27] LABS: ALBUMIN 3.1 GM/DL (3.2-5.2); ALT/SGPT 28 U/L (12-78); BILIRUBIN,TOTAL 0.2 MG/DL (0.2-1.0); BLOOD UREA NITROGEN 7 MG/DL (7-18); CALCIUM LEVEL 9.3 MG/DL (8.5-10.1); CARBON DIOXIDE LEVEL 26 MEQ/L (21-32); CHLORIDE LEVEL 104 MEQ/L (98-107); CREATININE FOR GFR 0.66 MG/DL (0.55-1.30); GLOMERULAR FILTRATION RATE > 60.0 (>51); GLUCOSE, FASTING 99 MG/DL (70-100); SODIUM LEVEL 139 MEQ/L (136-145); TOTAL PROTEIN 6.6 GM/DL (6.4-8.2); VALPROIC ACID (DEPAKOTE) 70.8 UG/ML (50.0-100.0)
[2021-08-17] MEDS ORDERED: ZOLP6.2517 PO (11:09)
[2021-08-17] MEDS ORDERED: AMIT75TA PO (11:50)
--- NOTE | 2021-08-17 12:34 | MHDSPDOC ---
[facility] Discharge Summary Discharge Summary DATE OF ADMISSION: Aug 13, 2021 at 21:32 DATE OF DISCHARGE: August 17, 2021 at 1231 DISCHARGE DIAGNOSES: Bipolar 1 disorder, current episode, depressed mood Generalized anxiety disorder Nicotine use disorder COPD Emphysema Asthma REASON FOR ADMISSION: Patient is a 56 -year-old , Retired, Domiciled, , female, who took an overdose of all of her medications as a suicide attempt. She states that she had been doing very well that morning but had become depressed by late morning. She reports a history of Bipolar I, with rapid cycling. She reports that her mother of COPD in March 2019, son committed suicide by gunshot in September 2019 (he had become depressed over the loss of his Grandmother) and she has been taking care of her father (age 79) for 2 years. He is disabled and on home oxygen. She states she was overwhelmed with everything. Reports that she had not planned it and that it was impulsive. She had had two other suicide attempts 8 and 15 years ago and both overdoses with hospitalizations. On this occasion she reports being very remorseful - "I am fine, I am taking ownership, made an insurmountable problem even more bad. I made my 's life Adnois miserable. He works, takes care of my dad, takes care of 6 dogs and trying to stay on top of the house, and I really feel badly that I put him in this position." She further reports that she is overwhelmed with the job of going through her father's belongings to get the house ready to sell. VITAL SIGNS: See below. CONSULTANTS INVOLVED: See Medical H + P by Hospitalist TREATMENT AND PROGRESS ON THE UNIT: Patient was admitted to the [facility] on a legal status was afforded the following treatment modalities: 1) Individual Therapy 2) Group Therapy 3) Medication Management 4) Milieu Therapy 5) Safe Environment HOSPITAL COURSE: Patient was admitted to [facility] on a legal status. Patient was started on most of her home medications, as patient had alprazolam for 10 years this medication was returned to her medication regimen. Latuda was discussed and this was reduced to 40 mg and on her discharge it was increased to 60 mg today. The pt found medications beneficial and tolerated them well. Mood, anxiety, and intrusive thoughts improved with treatment. Patient was quite pleasant, cooperative, and social in the milieu. The pt attended groups daily during stay. Pts symptoms improved with treatment. On day of discharge pt. denied depression, anxiety, insomnia, SI/HI, hallucinations, delusions. Pt was discharged home with follow-up with [facility]. Pt felt safe for discharge. DISCHARGE ASSESSMENT: In today's interview, patient is alert and oriented, pt.s dress is appropriate. Hygiene and grooming is well-kempt. Smiles on approach and is pleasant and engaged in the interview. Denies depression and anxiety. Denies suicidal and homicidal ideation, planning or intent. Denies and is not observed with demi, psychotic symptoms of delusions, bizarre thinking, obsessions, paranoia, ruminations illogical thoughts, flight of ideas or having poor insight and judgement. Reinforced with patient need to abstain from alcohol and drugs. At discharge patient has normal mentation, declines further hospitalization on a voluntary status and meets criteria for discharge today. Discussed indications of medications, potential benefits and risks, alternatives (including no treatment) and questions were encouraged and answered. Patient encouraged to return to hospital if symptoms worsen or change and encouraged to call unit if he/she/they needs to speak to provider for questions regarding medications or care. MENTAL STATUS EXAMINATION ON DISCHARGE: Patient is a 56 -year-old , Retired, Domiciled, , female, who took an overdose of all of her medications as a suicide attempt. Speech: Is fluid, conversant, normal rate, tone and volume Language skills are intact Thought processes including: linear and goal oriented Thought content: denies depression and anxiety. Denies suicidal/homicidal ideation, planning or intent. Abstract reasoning, and computation: fair Description of associations: denies, none observed Description of abnormal or psychotic thoughts: denies, none observed. Judgment: fair Insight: fair Orientation: alert and oriented to person, place, time and situation Recent and remote memory: intact Attention span and concentration: good Language: expansive Fund of knowledge: average Mood: Euthymic Mood Affect: reactive Suicide Risk Assessment: 1) Does the patient wish to be ? No 2) Since your admission, have you had any actual thought of killing yourself? No 3) Since your admission, have you been thinking about how you might do this? No 4) Since your admission, have you had these thoughts and had some intention of acting on them? No 5) Since your admission, have you started to work out or worked out the details of how to kill yourself? No 5A) Do you intent to carry out this plan? No and NA 6) Have you ever done anything, started anything, or prepared to do anything with any intent to ? No 6A) How long since your admission did you do any of these? NA MEDICATIONS ON DISCHARGE: See Medication Reconciliation PLAN/FOLLOWUP ARRANGEMENTS: Patient is being discharged to home and she is following up with Dr. Flores at [facility] The amount of time spent in the coordination of care for this patient was approximately 25 minutes. ETOH/Disorder Med Rx ETOH/DRUG DISORDER RX: N/A Vital Signs/I&Os Vital Signs Date Time Temp Pulse Resp B/P (MAP) Pulse Ox O2 Delivery O2 Flow Rate FiO2 08/17/21 06:20 98.7 118 14 108/68 (81) 96 Room Air Laboratory Data Labs 24H Laboratory Tests 2 08/17/21 09:46: Immature Granulocyte % (Auto) 1.0, Neutrophils (%) (Auto) 67.8H, Lymphocytes (%) (Auto) 18.3L, Monocytes (%) (Auto) 11.2H, Eosinophils (%) (Auto) 0.8, Basophils (%) (Auto) 0.9, Neutrophils # (Auto) 8.8H, Lymphocytes # (Auto) 2.4, Monocytes # (Auto) 1.5H, Eosinophils # (Auto) 0.1, Basophils # (Auto) 0.1, Nucleated Red Blood Cells % (auto) 0.0, Anion Gap 9, Glomerular Filtration Rate > 60.0, Calcium Level 9.3, Total Bilirubin 0.2, Aspartate Amino Transf (AST/SGOT) 10, Alanine Aminotransferase (ALT/SGPT) 28, Alkaline Phosphatase 110, Total Protein 6.6, Albumin 3.1L, Albumin/Globulin Ratio 0.9L, Valproic Acid (Depakene) Level 70.8 CBC/BMP Laboratory Tests 08/17/21 09:46 Medications Scheduled Alprazolam (Alprazolam) 0.5 Mg Tablet, 1 MG PO BID for Anxiety, #14 Amitriptyline HCl (Amitriptyline HCl) 75 Mg Tablet, 75 MG PO DAILY, (Reported) Amitriptyline HCl (Amitriptyline HCl) 75 Mg Tablet, 1 TAB PO QPM for Migraines for 7 Days, #7 Aspirin (Ecotrin) 81 Mg Tablet.dr, 81 MG PO DAILY, (Reported) Cholestyramine (Cholestyramine Packet) 4 Gm Powd.pack, 4 GM PO DAILY@1400 for Cholesterol, #1 Clopidogrel Bisulfate (Plavix) 75 Mg Tablet, 75 MG PO DAILY, (Reported) Divalproex Sodium (Divalproex Sodium ER) 500 Mg Tab.er.24h, 1,000 MG PO QHS, (Reported) Ergocalciferol (Vitamin D2) (Vitamin D2) 50,000 Units Cap, 50,000 UNITS PO QWEEK, (Reported) Ferrous Sulfate (Ferrous Sulfate) 325 Mg Tablet, 325 MG PO BID for 30 Days, #60 Fluticasone Furoate (Arnuity Ellipta) 200 Mcg/Act Inh, 1 PUFF INH DAILY, (Reported) Lurasidone Hydrochloride (Latuda) 20 Mg Tablet, 60 MG PO DAILY for Mood for 7 Days, #21 Pantoprazole Sodium (Pantoprazole Sodium) 40 Mg Tablet.dr, 40 MG PO DAILY, (Reported) Theophylline Anhydrous (Vamsi-24) 100 Mg Cap.er.24h, 400 MG PO BID for Asthma, #1 4 Umeclidinium Brm/Vilanterol Tr (Anoro Ellipta 62.5-25 Mcg INH) 1 Aer Aer, 1 PUFF INH DAILY, (Reported) Scheduled PRN Acetaminophen (Acetaminophen) 500 Mg Tablet, 500 MG PO Q6H PRN for HEADACHE, (Reported) Albuterol Sulfate (Ventolin Hfa) 18 Gm Hfa.aer.ad, 2 PUFF INH Q4-6HP PRN for SOB/WHEEZING, (Reported) Famotidine (Famotidine) 40 Mg Tablet, 40 MG PO DAILY PRN for HEARTBURN, (Reported) Ubrogepant (Ubrelvy) 100 Mg Tablet, 100 MG PO Q2H PRN for HEADACHE, (Reported) Zolpidem Tartrate (Zolpidem Tartrate ER) 6.25 Mg Tab.mphase, 1 TAB PO QPMP PRN for sleep for 7 Days, #7 Allergies Coded Allergies: diazepam (Verified Allergy, Severe, ONLY WITH VALIUM-CAUSES ANGIOEDEMA, 06/27/21) iodine (Verified Allergy, Intermediate, HIVES, 06/27/21) latex (Unverified Allergy, Unknown, 06/27/21) cocoa (Verified Adverse Reaction, Intermediate, CHOCOLATE - MIGRAINES, 06/27/21) chlorhexidine (Verified Adverse Reaction, Mild, RASH, 06/27/21) JLUIS STINSON NP Aug 17, 2021 12:34
== END 2021-08-17 11:58 | disposition home or self-care (01) | DRG 885 ==
LOC: M PSY 21:32
PROVIDERS: ADMIT Internal Medicine; ATTEND Psychiatry & Neurology Psychiatry
DX: F31.9 Bipolar disorder, unspecified (principal); F41.1 Generalized anxiety disorder; F17.200 Nicotine dependence, unspecified, uncomplicated; Z81.8 Family history of other mental and behavioral disorders; J43.9 Emphysema, unspecified; G43.709 Chronic migraine without aura, not intractable, without status migrainosus; I10 Essential (primary) hypertension; M17.0 Bilateral primary osteoarthritis of knee; Z63.6 Dependent relative needing care at home; Z79.82 Long term (current) use of aspirin; Z79.899 Other long term (current) drug therapy; Z88.8 Allergy status to other drugs, medicaments and biological substances; Z91.040 Latex allergy status; Z91.51 Personal history of suicidal behavior; K21.9 Gastro-esophageal reflux disease without esophagitis; I67.2 Cerebral atherosclerosis; Z91.419 Personal history of unspecified adult abuse

== ENCOUNTER → 2021-12-10 | Outpatient (CLI) | payer MEDICARE ==
[~2021-12-10] MED LIST changes: +ALPR0.5T3 PO; +ALPR2TAB3 PO; +LATU20TA PO; +THEO1CAP2 PO
== END ==
LOC: M WHC 07:41
PROVIDERS: ATTEND Surgery
DX: Z91.89 Other specified personal risk factors, not elsewhere classified (principal); Z12.31 Encounter for screening mammogram for malignant neoplasm of breast

== ENCOUNTER → 2022-02-22 | Outpatient (CLI) | payer MEDICARE ==
[~2022-02-22] MED LIST changes: -LATU80TA PO; +LATU80TA2 PO
[2022-02-22 13:56] LABS: BASO # 0.1 10^3/uL (0.0-0.2); BASO % 0.8 % (0.0-1.0); EOS # 0.1 10^3/uL (0.0-0.5); EOS % 1.4 % (0.0-3.0); HEMATOCRIT 28.2 % (36.0-47.0); HEMOGLOBIN 8.8 g/dl (12.0-15.5); LYMPH # 2.9 10^3/uL (1.5-5.0); MEAN CORPUSCULAR HGB CONC 31.2 g/dl (32.0-36.5); MEAN CORPUSCULAR VOLUME 83.4 fl (80.0-96.0); MONO # 0.9 10^3/uL (0.0-0.8); MONO % 10.6 % (2.0-8.0); NEUTROPHILS # 4.5 10^3/uL (1.5-8.5); NEUTROPHILS % 52.6 % (36.0-66.0); PLATELET COUNT, AUTOMATED 409 10^3/uL (150-450); RED BLOOD COUNT 3.38 10^6/uL (4.00-5.40); WHITE BLOOD COUNT 8.6 10^3/uL (4.0-10.0)
[2022-02-22 14:24] LABS: PERCENT SATURATION 3.8 % (13.2-45.0)
[2022-02-22 14:31] LABS: FOLATE 6.2 NG/ML
== END ==
LOC: M LAB 13:32
PROVIDERS: ATTEND Family Medicine
DX: D64.9 Anemia, unspecified (principal)

== ENCOUNTER → 2022-03-18 | Outpatient (CLI) | payer MEDICARE | LOC: M RAD 14:02 | PROVIDERS: ATTEND Internal Medicine Pulmonary Disease | DX: Z87.891 Personal history of nicotine dependence (principal) ==

== ENCOUNTER → 2022-05-24 | Outpatient (CLI) | payer MEDICARE ==
[~2022-05-24] MED LIST changes: -GNPLIQ60 PO; +GNPLIQ67 PO; +PROHANCE 279.3MG/ML 15ML VIAL ONE
== END ==
LOC: M PLAIMG 08:47
PROVIDERS: ATTEND Nurse Practitioner Women's Health
DX: Z12.31 Encounter for screening mammogram for malignant neoplasm of breast (principal); Z80.3 Family history of malignant neoplasm of breast; Z91.89 Other specified personal risk factors, not elsewhere classified
CPT/HCPCS: A9576; C8908

== ENCOUNTER → 2022-12-12 | Outpatient (CLI) | payer MEDICARE ==
[~2022-12-12] MED LIST changes: +CLOP75TA99 PO; -PLAV1TAB2 PO; -PROHANCE 279.3MG/ML 15ML VIAL ONE
== END ==
LOC: M WHC 12:33
PROVIDERS: ATTEND Nurse Practitioner Women's Health
DX: Z12.31 Encounter for screening mammogram for malignant neoplasm of breast (principal); R92.8 Other abnormal and inconclusive findings on diagnostic imaging of breast; N63.21 Unspecified lump in the left breast, upper outer quadrant; Z91.89 Other specified personal risk factors, not elsewhere classified; Z80.3 Family history of malignant neoplasm of breast

== ENCOUNTER → 2022-12-19 | Outpatient (CLI) | payer MEDICARE | LOC: M RAD 13:33 | PROVIDERS: ATTEND Physician Assistant | DX: R19.7 Diarrhea, unspecified (principal) ==

== ENCOUNTER → 2022-12-26 | Outpatient (CLI) | payer MEDICARE | LOC: M WHC 08:03 | PROVIDERS: ATTEND Nurse Practitioner Women's Health | DX: Z12.31 Encounter for screening mammogram for malignant neoplasm of breast (principal); Z91.89 Other specified personal risk factors, not elsewhere classified; Z80.3 Family history of malignant neoplasm of breast | CPT/HCPCS: 77065; G0279 ==

== ENCOUNTER → 2023-01-03 | Outpatient (CLI) | payer MEDICARE | LOC: M LABSMTC 11:06 | PROVIDERS: ATTEND Student in an Organized Health Care Education/Training Program | DX: Z11.59 Encounter for screening for other viral diseases (principal) ==

== ENCOUNTER → 2023-01-10 | Outpatient (CLI) | payer MEDICARE ==
[~2023-01-10] MED LIST changes: +GASTROGRAFIN SOLUTION 30ML As Ordered ONE; +ISOVUE-370 76% 100ML VIAL As Ordered ONE
== END ==
LOC: M RAD 11:06
PROVIDERS: ATTEND Registered Nurse
DX: R10.84 Generalized abdominal pain (principal); R63.4 Abnormal weight loss
CPT/HCPCS: 74177; Q9963; Q9967

== ENCOUNTER 2023-02-03 13:51 | Emergency (ER) | payer MEDICARE ==
[~2023-02-03] VITALS: Ht 162.6 cm; Wt 63.8 kg
[~2023-02-03 13:51] MED LIST changes: -GASTROGRAFIN SOLUTION 30ML As Ordered ONE; -ISOVUE-370 76% 100ML VIAL As Ordered ONE
[2023-02-03] MEDS ORDERED: LATU80TA2 PO (14:16)
[2023-02-03 16:17] LABS: BASO # 0.1 10^3/uL (0.0-0.2); BASO % 0.9 % (0.0-1.0); EOS # 0.1 10^3/uL (0.0-0.5); EOS % 0.7 % (0.0-3.0); HEMATOCRIT 37.9 % (36.0-47.0); HEMOGLOBIN 12.3 g/dl (12.0-15.5); LYMPH # 2.7 10^3/uL (1.5-5.0); LYMPH % 33.4 % (24.0-44.0); MEAN CORPUSCULAR HEMOGLOBIN 33.7 pg (27.0-33.0); MEAN CORPUSCULAR HGB CONC 32.5 g/dl (32.0-36.5); MEAN CORPUSCULAR VOLUME 103.8 fl (80.0-96.0); MONO # 0.8 10^3/uL (0.0-0.8); MONO % 9.7 % (2.0-8.0); NEUTROPHILS # 4.4 10^3/uL (1.5-8.5); NEUTROPHILS % 54.9 % (36.0-66.0); PLATELET COUNT, AUTOMATED 434 10^3/uL (150-450); RED BLOOD COUNT 3.65 10^6/uL (4.00-5.40)
[2023-02-03 16:46] LABS: LIPASE 26 U/L (12-53)
[2023-02-03 16:48] LABS: ALBUMIN 3.9 G/DL (3.2-5.2); ALKALINE PHOSPHATASE 110 U/L (46-116); ALT/SGPT < 9 U/L (7.0-40); AST/SGOT < 8 U/L (<34); BILIRUBIN,DIRECT 0.1 MG/DL (<0.4); BILIRUBIN,TOTAL 0.5 MG/DL (0.3-1.2); BLOOD UREA NITROGEN 11 MG/DL (9-23); CALCIUM LEVEL 10.8 MG/DL (8.5-10.1); CARBON DIOXIDE LEVEL 26 MMOL/L (20-31); CHLORIDE LEVEL 102 MMOL/L (98-107); CREATININE FOR GFR 0.65 MG/DL (0.55-1.30); GLOMERULAR FILTRATION RATE > 60.0 (>51); GLUCOSE, FASTING 90 MG/DL (60-100); POTASSIUM SERUM 4.3 MMOL/L (3.5-5.1); SODIUM LEVEL 138 MMOL/L (136-145); TOTAL PROTEIN 7.1 G/DL (5.7-8.2)
[2023-02-03] MEDS ORDERED: LR 1,000 ML IV ONE (17:10)
[2023-02-03] MEDS ORDERED: PROMETHAZINE 25MG/ML 1ML VIAL IV ONE (17:10)
[2023-02-03] MEDS ORDERED: NS 1,000 ML IV ONE (17:10)
[2023-02-03] MEDS ORDERED: PROM12.56 PO (17:15)
[2023-02-03 19:46] VITALS: BP 127/78
== END 2023-02-03 19:50 | disposition home or self-care (01) ==
LOC: M ED 13:51
DX: K86.1 Other chronic pancreatitis (principal); I10 Essential (primary) hypertension; K21.9 Gastro-esophageal reflux disease without esophagitis; J44.9 Chronic obstructive pulmonary disease, unspecified; F17.200 Nicotine dependence, unspecified, uncomplicated; Z79.899 Other long term (current) drug therapy; Z79.51 Long term (current) use of inhaled steroids; Z88.8 Allergy status to other drugs, medicaments and biological substances; Z88.3 Allergy status to other anti-infective agents; Z91.040 Latex allergy status; Z91.018 Allergy to other foods

== ENCOUNTER → 2023-02-28 | Outpatient (CLI) | payer MEDICARE ==
[~2023-02-28] MED LIST changes: +PROM12.56 PO
== END ==
LOC: M SOG 13:06
PROVIDERS: ATTEND Physician Assistant
DX: M25.531 Pain in right wrist (principal); M25.532 Pain in left wrist

== ENCOUNTER → 2023-03-13 | Outpatient (CLI) | payer MEDICARE | LOC: M SOG 08:57 | PROVIDERS: ATTEND Orthopaedic Surgery Hand Surgery | DX: M25.511 Pain in right shoulder (principal); M25.512 Pain in left shoulder; M25.561 Pain in right knee; M25.562 Pain in left knee ==

== ENCOUNTER → 2023-03-26 | Outpatient (CLI) | payer MEDICARE | LOC: M RAD 13:19 | PROVIDERS: ATTEND Physician Assistant Surgical | DX: R19.7 Diarrhea, unspecified (principal) ==

== ENCOUNTER → 2023-05-06 | Outpatient (REF) | payer MEDICARE ==
[2023-05-06 12:36] LABS: APPEARANCE, URINE CLOUDY (CLEAR); BACTERIA, URINE AUTO 1+ (NEGATIVE); BILIRUBIN, URINE AUTO NEGATIVE (NEGATIVE); BLOOD, URINE BLOOD 3+ (NEGATIVE); CALCIUM OXALATE CRYSTALS LARGE; COLOR, URINE YELLOW (YELLOW); GLUCOSE, URINE (UA) AUTO NEGATIVE (NEGATIVE); KETONE, URINE AUTO NEGATIVE (NEGATIVE); LEUKOCYTE ESTERASE, URINE AUTO 2+ (NEGATIVE); MUCUS, URINE SMALL (NEGATIVE); NITRITE, URINE AUTO NEGATIVE (NEGATIVE); PROTEIN, URINE AUTO 1+ mg/dL (NEGATIVE); RBC, URINE AUTO TNTC /HPF (0-3); SPECIFIC GRAVITY URINE AUTO 1.027 (1.002-1.035); SQUAMOUS EPITHELIAL CELL UR AU 0 /HPF (0-6); UROBILINOGEN, URINE AUTO 0.2 mg/dL (0.0-2.0); WBC, URINE AUTO TNTC /HPF (0-3)
== END ==
LOC: M SMT 11:50
PROVIDERS: ATTEND Physician Assistant
DX: R30.0 Dysuria (principal)

== ENCOUNTER → 2023-05-09 | Outpatient (CLI) | payer MEDICARE | LOC: M RAD 12:26 | PROVIDERS: ATTEND Internal Medicine Pulmonary Disease | DX: Z87.891 Personal history of nicotine dependence (principal) ==

== ENCOUNTER → 2023-06-03 | Outpatient (CLI) | payer MEDICARE ==
[~2023-06-03] MED LIST changes: +PROHANCE 279.3MG/ML 5ML VIAL ONE
== END ==
LOC: M PLAIMG 07:35
PROVIDERS: ATTEND Nurse Practitioner Women's Health
DX: R92.2 Inconclusive mammogram (principal); Z91.89 Other specified personal risk factors, not elsewhere classified; Z80.3 Family history of malignant neoplasm of breast
CPT/HCPCS: A9576; C8908

== ENCOUNTER → 2023-07-01 | Outpatient (CLI) | payer MEDICARE ==
[~2023-07-01] MED LIST changes: -PROHANCE 279.3MG/ML 5ML VIAL ONE
[2023-07-01 15:15] LABS: BASO # 0.1 10^3/uL (0.0-0.2); BASO % 0.9 % (0.0-1.0); EOS # 0.2 10^3/uL (0.0-0.5); EOS % 2.4 % (0.0-3.0); HEMATOCRIT 33.5 % (36.0-47.0); HEMOGLOBIN 10.8 g/dl (12.0-15.5); LYMPH # 2.2 10^3/uL (1.5-5.0); LYMPH % 27.4 % (24.0-44.0); MEAN CORPUSCULAR HEMOGLOBIN 34.3 pg (27.0-33.0); MEAN CORPUSCULAR HGB CONC 32.2 g/dl (32.0-36.5); MEAN CORPUSCULAR VOLUME 106.3 fl (80.0-96.0); MONO # 0.9 10^3/uL (0.0-0.8); MONO % 11.2 % (2.0-8.0); NEUTROPHILS # 4.6 10^3/uL (1.5-8.5); PLATELET COUNT, AUTOMATED 350 10^3/uL (150-450); RED BLOOD COUNT 3.15 10^6/uL (4.00-5.40); WHITE BLOOD COUNT 7.9 10^3/uL (4.0-10.0)
[2023-07-01 15:42] LABS: PERCENT SATURATION 12.2 % (13.2-45.0)
[2023-07-01 15:44] LABS: FERRITIN 34.2 NG/ML (7.3-270.7); FREE T3 3.5 PG/ML (2.3-4.2); FREE T4 0.87 NG/DL (0.89-1.76); THYROID STIMULATING HORMONE 0.705 uIU/ML (0.55-4.78)
[2023-07-01 15:45] LABS: FOLATE 15.9 NG/ML (>5.4)
== END ==
LOC: M LAB 14:36
PROVIDERS: ATTEND Family Medicine
DX: D64.9 Anemia, unspecified (principal)

== ENCOUNTER → 2023-07-07 | Outpatient (REF) | payer MEDICARE ==
[2023-07-07 18:37] LABS: APPEARANCE, URINE CLEAR (CLEAR); BACTERIA, URINE AUTO NEGATIVE (NEGATIVE); BILIRUBIN, URINE AUTO NEGATIVE (NEGATIVE); BLOOD, URINE BLOOD 1+ (NEGATIVE); COLOR, URINE COLORLESS (YELLOW); GLUCOSE, URINE (UA) AUTO NEGATIVE (NEGATIVE); KETONE, URINE AUTO NEGATIVE (NEGATIVE); LEUKOCYTE ESTERASE, URINE AUTO NEGATIVE (NEGATIVE); NITRITE, URINE AUTO NEGATIVE (NEGATIVE); PROTEIN, URINE AUTO NEGATIVE (NEGATIVE); RBC, URINE AUTO 0 /HPF (0-3); SPECIFIC GRAVITY URINE AUTO 1.004 (1.002-1.035); SQUAMOUS EPITHELIAL CELL UR AU 1 /HPF (0-6); UROBILINOGEN, URINE AUTO 0.2 mg/dL (0.0-2.0); WBC, URINE AUTO 0 /HPF (0-3)
== END ==
LOC: M SMT 17:09
PROVIDERS: ATTEND Physician Assistant
DX: R30.0 Dysuria (principal)

== ENCOUNTER → 2023-07-23 | Outpatient (REF) | payer MEDICARE ==
[2023-07-23 18:14] LABS: APPEARANCE, URINE CLEAR (CLEAR); BACTERIA, URINE AUTO NEGATIVE (NEGATIVE); BILIRUBIN, URINE AUTO NEGATIVE (NEGATIVE); BLOOD, URINE BLOOD NEGATIVE (NEGATIVE); COLOR, URINE STRAW (YELLOW); GLUCOSE, URINE (UA) AUTO NEGATIVE (NEGATIVE); KETONE, URINE AUTO NEGATIVE (NEGATIVE); LEUKOCYTE ESTERASE, URINE AUTO NEGATIVE (NEGATIVE); NITRITE, URINE AUTO NEGATIVE (NEGATIVE); PROTEIN, URINE AUTO NEGATIVE (NEGATIVE); RBC, URINE AUTO 0 /HPF (0-3); SPECIFIC GRAVITY URINE AUTO 1.003 (1.002-1.035); SQUAMOUS EPITHELIAL CELL UR AU 1 /HPF (0-6); UROBILINOGEN, URINE AUTO 0.2 mg/dL (0.0-2.0); WBC, URINE AUTO 0 /HPF (0-3)
== END ==
LOC: M SMT 17:07
PROVIDERS: ATTEND Physician Assistant
DX: R30.0 Dysuria (principal)

== ENCOUNTER → 2023-11-25 | Outpatient (REF) | payer MEDICARE | LOC: M LAB REF 12:24 | PROVIDERS: ATTEND Physician Assistant Medical | DX: R05.9 Cough, unspecified (principal) ==

== ENCOUNTER → 2023-12-29 | Outpatient (CLI) | payer MEDICARE | LOC: M WHC 08:35 | PROVIDERS: ATTEND Nurse Practitioner Women's Health | DX: Z12.31 Encounter for screening mammogram for malignant neoplasm of breast (principal) ==

== ENCOUNTER → 2024-04-02 | Outpatient (REF) | payer MEDICARE ==
[~2024-04-02] MED LIST changes: -ZOLP6.2517 PO; +ZOLP6.2526 PO
== END ==
LOC: M SFHCWAGY 17:25
PROVIDERS: ATTEND Nurse Practitioner Family
DX: Z12.4 Encounter for screening for malignant neoplasm of cervix (principal)
CPT/HCPCS: 87624; G0123

== ENCOUNTER 2024-05-21 10:18 | Emergency (ER) | payer MEDICARE ==
[~2024-05-21] VITALS: Ht 162.6 cm; Wt 59.1 kg
[2024-05-21] MEDS: ONDANSETRON 4MG 2ML VIAL IV ONE (11:33)
[2024-05-21 11:43] LABS: HEMATOCRIT 26.2 % (36.0-47.0); HEMOGLOBIN 8.1 g/dl (12.0-15.5); MEAN CORPUSCULAR HEMOGLOBIN 27.3 pg (27.0-33.0); MEAN CORPUSCULAR HGB CONC 30.9 g/dl (32.0-36.5); MEAN CORPUSCULAR VOLUME 88.2 fl (80.0-96.0); PLATELET COUNT, AUTOMATED 333 10^3/uL (150-450); RED BLOOD COUNT 2.97 10^6/uL (4.00-5.40); WHITE BLOOD COUNT 5.1 10^3/uL (4.0-10.0)
[2024-05-21 12:08] LABS: BLOOD UREA NITROGEN 13 MG/DL (9-23); CALCIUM LEVEL 9.2 MG/DL (8.5-10.1); CARBON DIOXIDE LEVEL 26 MMOL/L (20-31); CHLORIDE LEVEL 105 MMOL/L (98-107); CREATININE FOR GFR 0.71 MG/DL (0.55-1.30); GLOMERULAR FILTRATION RATE > 60.0 (>51); GLUCOSE, FASTING 87 MG/DL (60-100); SODIUM LEVEL 135 MMOL/L (136-145)
[2024-05-21] MEDS ORDERED: CREO3600 PO ×2 (12:23)
[2024-05-21] MEDS ORDERED: ALPR1TAB3 PO ×2 (12:23)
[2024-05-21] MEDS ORDERED: CEPH250T PO (12:23)
[2024-05-21] MEDS ORDERED: MONT10TA97 PO (12:23)
[2024-05-21] MEDS ORDERED: ONDA-282 SL (12:23)
[2024-05-21] MEDS ORDERED: HOME MED LIST COMPLETE! XX SCH (12:25)
[2024-05-21] MEDS ORDERED: RIME75TA SL (12:26)
[2024-05-21 12:59] LABS: IRON (FE) 12 UG/DL (50-170); PERCENT SATURATION 3.2 % (13.2-45.0); TOTAL IRON BINDING CAPACITY 373 UG/DL (250-425)
[2024-05-21 13:00] VITALS: BP 122/79; TEMP 97.1; O2SAT 99
[2024-05-21 13:01] LABS: FERRITIN 7.9 NG/ML (7.3-270.7)
[2024-05-21 13:02] LABS: VITAMIN B12 LEVEL 736 PG/ML (211-911)
[2024-05-21] MEDS ORDERED: FERR325T3 PO (13:04)
[2024-05-21 13:05] LABS: FOLATE > 24.00 NG/ML (>5.4)
[2024-05-21] MEDS ORDERED: ONDA-282 PO (13:05)
== END 2024-05-21 13:17 | disposition home or self-care (01) ==
LOC: M ED 10:18
DX: S06.0X0A Concussion without loss of consciousness, initial encounter (principal); Y92.019 Unspecified place in single-family (private) house as the place of occurrence of the external cause; Y93.9 Activity, unspecified; Y99.9 Unspecified external cause status; D50.9 Iron deficiency anemia, unspecified; F43.10 Post-traumatic stress disorder, unspecified; I10 Essential (primary) hypertension; J44.9 Chronic obstructive pulmonary disease, unspecified; K58.9 Irritable bowel syndrome, unspecified; F12.10 Cannabis abuse, uncomplicated; F10.10 Alcohol abuse, uncomplicated; Z88.8 Allergy status to other drugs, medicaments and biological substances; Z91.040 Latex allergy status; Z91.048 Other nonmedicinal substance allergy status; Z79.1 Long term (current) use of non-steroidal anti-inflammatories (NSAID); Z79.51 Long term (current) use of inhaled steroids; Z79.2 Long term (current) use of antibiotics; Z79.899 Other long term (current) drug therapy
CPT/HCPCS: 70450; 80048; 82607; 82728; 82746; 83550; 85027; 96374; 99284; J2405

== ENCOUNTER 2024-05-25 11:30 | Emergency (ER) | payer MEDICARE ==
[~2024-05-25] VITALS: Ht 160 cm; Wt 62.6 kg
[~2024-05-25 11:30] MED LIST changes: +CEPH250T PO; +CREO3600 PO; +FERR325T3 PO; +MONT10TA97 PO; +ONDA-282 PO; +ONDA-282 SL; +RIME75TA SL
[2024-05-25] MEDS: MECLIZINE 25 MG TABLET PO ONE (12:54)
[2024-05-25 13:10] LABS: BASO # 0.1 10^3/uL (0.0-0.2); BASO % 1.3 % (0.0-1.0); EOS # 0.1 10^3/uL (0.0-0.5); EOS % 1.5 % (0.0-3.0); HEMATOCRIT 27.3 % (36.0-47.0); HEMOGLOBIN 8.3 g/dl (12.0-15.5); LYMPH # 1.7 10^3/uL (1.5-5.0); LYMPH % 30.9 % (24.0-44.0); MEAN CORPUSCULAR HEMOGLOBIN 26.9 pg (27.0-33.0); MEAN CORPUSCULAR HGB CONC 30.4 g/dl (32.0-36.5); MEAN CORPUSCULAR VOLUME 88.3 fl (80.0-96.0); MONO # 0.6 10^3/uL (0.0-0.8); MONO % 10.9 % (2.0-8.0); PLATELET COUNT, AUTOMATED 354 10^3/uL (150-450); RED BLOOD COUNT 3.09 10^6/uL (4.00-5.40); WHITE BLOOD COUNT 5.4 10^3/uL (4.0-10.0)
[2024-05-25] MEDS: diphenhydrAMINE 50MG/ML VIAL IV STA (13:21)
[2024-05-25] MEDS: methylPREDNISolone 125MG 2ML VIAL IV ONE (13:21)
[2024-05-25 13:23] LABS: INR 0.99; PARTIAL THROMBOPLASTIN TIME 27.4 SECONDS (24.8-34.2); PROTHROMBIN TIME 12.8 SECONDS (12.5-14.5)
[2024-05-25 13:42] LABS: CK-MB VALUE MASS < 1.0 NG/ML (<3.6)
[2024-05-25 13:44] LABS: BLOOD UREA NITROGEN 18 MG/DL (9-23); CALCIUM LEVEL 9.8 MG/DL (8.5-10.1); CARBON DIOXIDE LEVEL 30 MMOL/L (20-31); CHLORIDE LEVEL 104 MMOL/L (98-107); CPK CREATINE PHOSPHOKINASE 56 U/L (34-145); CREATININE FOR GFR 0.74 MG/DL (0.55-1.30); GLOMERULAR FILTRATION RATE > 60.0 (>51); GLUCOSE, FASTING 78 MG/DL (60-100); MAGNESIUM LEVEL 1.8 MG/DL (1.8-2.4); MB/CK RELATIVE INDEX 1.78 (< OR =4); POTASSIUM SERUM 4.5 MMOL/L (3.5-5.1); SODIUM LEVEL 140 MMOL/L (136-145)
[2024-05-25] MEDS ORDERED: ISOVUE-370 76% 100ML VIAL As Ordered ONE (13:53)
[2024-05-25 17:49] VITALS: BP 142/80; TEMP 98.4; O2SAT 96
[2024-05-25] MEDS ORDERED: MECL-86 PO (18:03)
== END 2024-05-25 18:16 | disposition home or self-care (01) ==
LOC: M ED 11:30
DX: S06.0X0A Concussion without loss of consciousness, initial encounter (principal); Y92.019 Unspecified place in single-family (private) house as the place of occurrence of the external cause; Y93.9 Activity, unspecified; Y99.9 Unspecified external cause status; K21.9 Gastro-esophageal reflux disease without esophagitis; I10 Essential (primary) hypertension; F17.210 Nicotine dependence, cigarettes, uncomplicated; F12.10 Cannabis abuse, uncomplicated; F10.10 Alcohol abuse, uncomplicated; Z88.8 Allergy status to other drugs, medicaments and biological substances; Z91.040 Latex allergy status; Z91.018 Allergy to other foods; Z79.1 Long term (current) use of non-steroidal anti-inflammatories (NSAID); Z79.51 Long term (current) use of inhaled steroids; Z79.2 Long term (current) use of antibiotics; Z79.899 Other long term (current) drug therapy
CPT/HCPCS: 70450; 70496; 70498; 70551; 80048; 82550; 82553; 83735; 84484; 85025; 85610; 85730; 96374; 99284; J1200; J2919; Q9967

== ENCOUNTER 2024-06-05 13:33 | Emergency (ER) | payer MEDICARE ==
[~2024-06-05] VITALS: Ht 160 cm; Wt 61.2 kg
[~2024-06-05 13:33] MED LIST changes: +MECL-86 PO
[2024-06-05 15:30] VITALS: BP 117/79; TEMP 98.2; O2SAT 98
== END 2024-06-05 15:48 | disposition home or self-care (01) ==
LOC: M ED 13:33
DX: S06.0X0A Concussion without loss of consciousness, initial encounter (principal); Y92.9 Unspecified place or not applicable; Y93.9 Activity, unspecified; Y99.9 Unspecified external cause status; J44.9 Chronic obstructive pulmonary disease, unspecified; F43.10 Post-traumatic stress disorder, unspecified; J45.909 Unspecified asthma, uncomplicated; F31.9 Bipolar disorder, unspecified; Z87.891 Personal history of nicotine dependence; Z88.8 Allergy status to other drugs, medicaments and biological substances; Z91.040 Latex allergy status; Z79.1 Long term (current) use of non-steroidal anti-inflammatories (NSAID); Z79.51 Long term (current) use of inhaled steroids; Z79.899 Other long term (current) drug therapy

== ENCOUNTER → 2024-06-15 | Outpatient (CLI) | payer MEDICARE ==
[~2024-06-15] MED LIST changes: +PROHANCE 279.3MG/ML 15ML VIAL ONE
== END ==
LOC: M PLAIMG 13:57
PROVIDERS: ATTEND Nurse Practitioner Women's Health
DX: R92.2 Inconclusive mammogram (principal); Z91.89 Other specified personal risk factors, not elsewhere classified; Z80.3 Family history of malignant neoplasm of breast
CPT/HCPCS: A9576; C8908

== ENCOUNTER → 2024-06-16 | Outpatient (CLI) | payer MEDICARE ==
[~2024-06-16] MED LIST changes: -PROHANCE 279.3MG/ML 15ML VIAL ONE
== END ==
LOC: M RAD 09:18
PROVIDERS: ATTEND Physician Assistant
DX: Z12.2 Encounter for screening for malignant neoplasm of respiratory organs (principal); Z87.891 Personal history of nicotine dependence

== ENCOUNTER 2024-12-27 12:03 | Emergency (ER) | payer MEDICARE ==
[~2024-12-27] VITALS: Ht 162.6 cm; Wt 71.3 kg
[2024-12-27 12:51] LABS: HEMATOCRIT 39.3 % (36.0-47.0); HEMOGLOBIN 13.2 g/dl (12.0-15.5); MEAN CORPUSCULAR HEMOGLOBIN 31.4 pg (27.0-33.0); MEAN CORPUSCULAR HGB CONC 33.6 g/dl (32.0-36.5); MEAN CORPUSCULAR VOLUME 93.3 fl (80.0-96.0); PLATELET COUNT, AUTOMATED 389 10^3/uL (150-450); RED BLOOD COUNT 4.21 10^6/uL (4.00-5.40); WHITE BLOOD COUNT 14.9 10^3/uL (4.0-10.0)
[2024-12-27 13:10] LABS: LYMPHOCYTES 4 % (16-44); MONOCYTES 1 % (0-5); NEUTROPHILS 84 % (28-66); PLATELET ESTIMATE NORMAL (NORMAL)
[2024-12-27 13:11] LABS: ANISOCYTOSIS 1+; POLYCHROMASIA 1+
[2024-12-27 13:16] LABS: BLOOD UREA NITROGEN 13 MG/DL (9-23); CALCIUM LEVEL 9.9 MG/DL (8.5-10.1); CARBON DIOXIDE LEVEL 22 MMOL/L (20-31); CHLORIDE LEVEL 105 MMOL/L (98-107); CREATININE FOR GFR 0.63 MG/DL (0.55-1.30); GLOMERULAR FILTRATION RATE > 60.0 (>51); GLUCOSE, FASTING 118 MG/DL (60-100); POTASSIUM SERUM 3.8 MMOL/L (3.5-5.1); SODIUM LEVEL 140 MMOL/L (136-145)
[2024-12-27] MEDS: ONDANSETRON 4MG 2ML VIAL IV ONE (14:35)
[2024-12-27] MEDS: ACETAMINOPHEN 325 MG TAB PO ONE (15:16)
[2024-12-27] MEDS: KETOROLAC 30 MG/ML 1ML VIAL IV ONE (15:16)
[2024-12-27 15:53] LABS: LIPASE 25 U/L (12-53)
[2024-12-27 15:55] LABS: ALBUMIN 3.7 G/DL (3.2-5.2); ALKALINE PHOSPHATASE 110 U/L (35-104); ALT/SGPT 19 U/L (7.0-40); AST/SGOT 25 U/L (<34); BILIRUBIN,DIRECT < 0.1 MG/DL (<0.4); BILIRUBIN,TOTAL 0.4 MG/DL (0.3-1.2); MAGNESIUM LEVEL 1.4 MG/DL (1.8-2.4); TOTAL PROTEIN 7.2 G/DL (5.7-8.2)
[2024-12-27] MEDS: diphenhydrAMINE 50MG/ML VIAL IV STA (16:36)
[2024-12-27] MEDS: methylPREDNISolone 125MG 2ML VIAL IV ONE (16:36)
[2024-12-27] MEDS ORDERED: ISOVUE-370 76% 100ML VIAL As Ordered ONE (17:03)
[2024-12-27] MEDS: MAGNESIUM OXIDE 400MG TAB (MAG-OX) PO ONE (17:55)
[2024-12-27 18:00] VITALS: BP 112/72; TEMP 99.8; O2SAT 95
[2024-12-27] MEDS ORDERED: ONDA-282 PO (18:24)
== END 2024-12-27 18:36 | disposition home or self-care (01) ==
LOC: M ED 12:03
DX: R11.10 Vomiting, unspecified (principal); R19.7 Diarrhea, unspecified; R16.0 Hepatomegaly, not elsewhere classified; K76.0 Fatty (change of) liver, not elsewhere classified; K58.9 Irritable bowel syndrome, unspecified; Z88.8 Allergy status to other drugs, medicaments and biological substances; Z91.040 Latex allergy status; Z91.018 Allergy to other foods; Z79.1 Long term (current) use of non-steroidal anti-inflammatories (NSAID); Z79.51 Long term (current) use of inhaled steroids; Z79.899 Other long term (current) drug therapy
CPT/HCPCS: 71045; 74177; 80047; 80048; 80076; 83690; 83735; 85025; 87486; 87581; 87633; 87798; 96374; 96375; 99284; J1200; J1885; J2405; J2919; Q9967

== ENCOUNTER → 2025-01-13 | Outpatient (CLI) | payer MEDICARE | LOC: M WUC 11:36 | PROVIDERS: ATTEND Family Medicine | DX: R05.9 Cough, unspecified (principal) ==

== ENCOUNTER → 2025-04-05 | Outpatient (CLI) | payer MEDICARE | LOC: M WHC 16:15 | PROVIDERS: ATTEND Nurse Practitioner Family | DX: Z12.31 Encounter for screening mammogram for malignant neoplasm of breast (principal); R92.333 Mammographic heterogeneous density, bilateral breasts ==

== ENCOUNTER → 2025-09-15 | Outpatient (CLI) | payer MEDICAID, MEDICARE ==
[~2025-09-15] MED LIST changes: -IBUP-1022 PO; +IBUP600T42 PO
== END ==
LOC: M WHC 10:04
PROVIDERS: ATTEND Surgery
DX: N64.4 Mastodynia (principal); N60.11 Diffuse cystic mastopathy of right breast